=== PATIENT | female | born 1950 | race Caucasian/White ===

== ENCOUNTER 2018-01-25 16:52 | Inpatient (IN) | payer MEDICARE, OTHER ==
[~2018-01-25] VITALS: Ht 160 cm; Wt 45.4 kg
[2018-01-25] VITALS (8 sets, daily range): BP systolic 69–185; BP diastolic 44–117
[2018-01-25] MEDS ORDERED: PROPOFOL DRIP (ICU) 100 ML IV SCH ×3 (17:15→20:00)
[2018-01-25] MEDS ORDERED: CATHETER FLUSH 10 ML SYR IV PRN (18:45)
[2018-01-25] MEDS ORDERED: NS (IVPB) 50 ML ONE (18:56)
[2018-01-25] MEDS: NS IV 1000 ML 1,000 ML IV SCH ×2 (19:04→19:30)
[2018-01-25] MEDS: PANTOPRAZOLE 40 MG (PROTONIX) VIAL IV SCH (19:07)
[2018-01-25] MEDS ORDERED: NS (IVPB) 0 ML ONE (19:09)
[2018-01-25] MEDS ORDERED: NOREPINEPHRINE 4 MG/4 ML (LEVOPHED) AMP IV ONE (19:10)
[2018-01-25] MEDS ORDERED: ATROPINE INJECTION 1 MG/10 ML SYR (ABBOTT) ONE (19:10)
[2018-01-25] MEDS ORDERED: SODIUM BICARB 8.4% 50 MEQ/50 ML (ABBOTT) SYR ONE (19:11)
[2018-01-25] MEDS ORDERED: DOPamine DRIP 250 ML IV ONE (19:21)
[2018-01-25 19:28] LABS: ABG BASE EXCESS -1.7 MMOL/L (-2.5-2.5); ABG OXYGEN SATURATION 99 % (94-100); ABG PCO2 36 MMHG (35-45); ABG PH 7.41 (7.37-7.43); ABG PO2 132 MMHG (79-93); ABG TCO2 23.7 MMOL/L (21.0-31.0); ALLENS TEST YES-POS; INSPIRED O2 50%; PATIENT TEMP 96.6; VENTILATOR YES
--- OUTSIDE RECORDS SUMMARY | 2018-01-25 19:28 | XMS REPORT ---
Author Author ANGELITO CRISTOPHER Organization [facility] Address [address] [place] [address] Care Team Providers Care Front End Java Developer Name Role Phone HERBERTJACKELYN NESBITTA Unavailable PROBLEMS Type Condition ICD9-CM Code CCP70-NU Code Onset Dates Condition Status SNOMED Code Problem Dementia in other diseases classified elsewhere without behavioral disturbance F02.80 Active 403996366 Problem Alzheimer's disease, unspecified G30.9 Active 342417723 Problem Bipolar 1 disorder, depressed, partial remission F31.75 Active 28872752 Problem Severe episode of recurrent major depressive disorder, without psychotic features F33.2 Active 48656478 ALLERGIES No Information ENCOUNTERS Encounter Location Date Diagnosis [place] [id number] [place] [address] 07524- 5068 Jan, [facility] [id number] [place] [address] 80259- 0798 Dec, [place] [id number] [place] [address] 83679- 5284 Dec, [place] [id number] [place] [address] 22623- 1147 Nov, Alzheimer's disease, unspecified G30.9 [facility] [id number] [place] [address] 62515- 5486 Nov, Alzheimer's disease, unspecified G30.9 ; Bipolar 1 disorder , depressed, partial remission F31.75 and Dementia in other diseases classified elsewhere without behavioral disturbance F02.80 [facility] [address] [place] [address] 65960- 5254 Sep, Alzheimer's disease, unspecified G30.9 ; Bipolar 1 disorder , depressed, partial remission F31.75 and Dementia in other diseases classified elsewhere without behavioral disturbance F02.80 [place] [address], [place] [address] August, Alzheimer's disease, unspecified G30.9 ; Bipolar 1 disorder , depressed, partial remission F31.75 and Dementia in other diseases classified elsewhere without behavioral disturbance F02.80 [place] [address], [place] [address] Jul, [place] [id number] [place] [address] 23316- 2448 Jun, [place] [id number] [place] [address] 19543- 6103 Jun, Alzheimer's disease, unspecified G30.9 ; Bipolar 1 disorder , depressed, partial remission F31.75 and Dementia in other diseases classified elsewhere without behavioral disturbance F02.80 [place] [id number] [place] [address] 44505- 1597 Jun, Bipolar 1 disorder, depressed, partial remission F31.75 ; Alzheimer's disease, unspecified G30.9 and Dementia in other diseases classified elsewhere without behavioral disturbance F02.80 [place] [address] [address] May, Bipolar 1 disorder, depressed, partial remission F31.75 ; Alzheimer's disease, unspecified G30.9 and Dementia in other diseases classified elsewhere without behavioral disturbance F02.80 [place] [address] [place] [address] 78630- 7312 Mar, Dementia in other diseases classified elsewhere without behavioral disturbance F02.80 [place] [address] [place] [address] 20161- 5922 Mar, Dementia in other diseases classified elsewhere without behavioral disturbance F02.80 ; Bipolar 1 disorder, depressed, partial remission F31.75 and Alzheimer's disease, unspecified G30.9 [place] [address], [place] [address] Mar, Dementia in other diseases classified elsewhere without behavioral disturbance F02.80 ; Alzheimer's disease, unspecified G30.9 and Bipolar 1 disorder, depressed, partial remission F31.75 [facility] [address] [facility] [id number] [address] August, [facility] [address] [facility] [id number] [address] Jun, Severe episode of recurrent major depressive disorder, without psychotic features F33.2 IMMUNIZATIONS No Known Immunizations SOCIAL HISTORY Never Assessed REASON FOR VISIT Refill request PLAN OF CARE VITAL SIGNS MEDICATIONS Medication Instructions Dosage Frequency Start Date End Date Duration Status Remeron 30 MG Orally Once a day 1 tablet at bedtime 24h 90 days Active RESULTS No Results PROCEDURES No Known procedures INSTRUCTIONS MEDICATIONS ADMINISTERED No Known Medications MEDICAL (GENERAL) HISTORY Type Description Date Medical History ADD Medical History Anxiety State, Unspecified Medical History Bipolar I Disorder Medical History Cognitive Disorder Medical History Dementia in Alzheimers Disease with depression Medical History IBS Medical History Pain Disorder Medical History Stress Syndrome Medical History Tobacco User Surgical History Gallbladder Removal Surgical History Hysterectomy Surgical History Unspecified Knee Hospitalization History Surgery
--- OUTSIDE RECORDS SUMMARY | 2018-01-25 19:28 | XMS REPORT ---
Author Author CRISTOPHER EATON Organization [facility] Address [address] [place] [address] Care Team Providers Care Syrup Mixer Name Role Phone ANGELITO CRISTOPHER Unavailable PROBLEMS Type Condition ICD9-CM Code KHY71-YO Code Onset Dates Condition Status SNOMED Code Problem Dementia in other diseases classified elsewhere without behavioral disturbance F02.80 Active 401527073 Problem Alzheimer's disease, unspecified G30.9 Active 545344503 Problem Bipolar 1 disorder, depressed, partial remission F31.75 Active 54883792 Problem Severe episode of recurrent major depressive disorder, without psychotic features F33.2 Active 74749306 ALLERGIES Substance Reaction Event Type Date Status Latex Unknown Drug Allergy Nov, Active SulfADIAZINE Unknown Drug Allergy Nov, Active Macrodantin Unknown Drug Allergy Nov, Active Keflex Unknown Drug Allergy Nov, Active ENCOUNTERS Encounter Location Date Diagnosis [facility] [id number] [place] [address] 08555- 9097 Jan, [facility] [address] [place] [address] 83789- 3301 Dec, [facility] [id number] [place] [address] 28848- 5014 Nov, Alzheimer's disease, unspecified G30.9 [facility] [id number] [place] [address] 01178- 0703 Nov, Alzheimer's disease, unspecified G30.9 ; Bipolar 1 disorder , depressed, partial remission F31.75 and Dementia in other diseases classified elsewhere without behavioral disturbance F02.80 [facility] [address] [place] [address] 71452- 5348 Sep, Alzheimer's disease, unspecified G30.9 ; Bipolar 1 disorder , depressed, partial remission F31.75 and Dementia in other diseases classified elsewhere without behavioral disturbance F02.80 [place] [address], [place] [address] August, Alzheimer's disease, unspecified G30.9 ; Bipolar 1 disorder , depressed, partial remission F31.75 and Dementia in other diseases classified elsewhere without behavioral disturbance F02.80 [place] [address], [place] [address] Jul, [place] [id number] [place] [address] 75953- 4407 Jun, [place] [id number] [place] [address] 55446- 1027 Jun, Alzheimer's disease, unspecified G30.9 ; Bipolar 1 disorder , depressed, partial remission F31.75 and Dementia in other diseases classified elsewhere without behavioral disturbance F02.80 [place] [address] [place] [address] 01407- 3139 Jun, Bipolar 1 disorder, depressed, partial remission F31.75 ; Alzheimer's disease, unspecified G30.9 and Dementia in other diseases classified elsewhere without behavioral disturbance F02.80 [place] [address] [place] [address] 37889- 1022 May, Bipolar 1 disorder, depressed, partial remission F31.75 ; Alzheimer's disease, unspecified G30.9 and Dementia in other diseases classified elsewhere without behavioral disturbance F02.80 [place] [address] [address]- 3[address] Mar, Dementia in other diseases classified elsewhere without behavioral disturbance F02.80 [place] [address] [place] [address] 71106- 2010 Mar, Dementia in other diseases classified elsewhere without behavioral disturbance F02.80 ; Bipolar 1 disorder, depressed, partial remission F31.75 and Alzheimer's disease, unspecified G30.9 [place] [id number] [place] [address] 13413- 5816 Mar, Dementia in other diseases classified elsewhere without behavioral disturbance F02.80 ; Alzheimer's disease, unspecified G30.9 and Bipolar 1 disorder, depressed, partial remission F31.75 [facility] [address] [facility] [id number] [address] August, [facility] [address] [facility] [id number] [address] Jun, Severe episode of recurrent major depressive disorder, without psychotic features F33.2 IMMUNIZATIONS No Known Immunizations SOCIAL HISTORY Never Assessed REASON FOR VISIT f/u Libby PLAN OF CARE Activity Details Follow Up 2 Months Reason: VITAL SIGNS Height 63 in 2017-11-30 Weight 101.0 lbs 2017-11-30 Heart Rate 88 bpm 2017-11-30 Respiratory Rate 20 2017-11-30 BMI 17.89 kg/m2 2017-11-30 Blood pressure systolic 88 mmHg 2017-11-30 Blood pressure diastolic 54 mmHg 2017-11-30 MEDICATIONS Medication Instructions Dosage Frequency Start Date End Date Duration Status Vol-Care Rx 1 MG Orally Once a day 1 tablet 24h 14 Mar, 2017 30 days Not-Taking Deplin 7.5 7.5-90.314 MG Orally Once a day 1 capsule 24h Not- Taking Chondroitin Sulfate 400 MG Orally 2 times a day 1 capsule 12h Not- Taking Ziprasidone HCl 40 mg Orally Twice a day 1 capsule with food 12h 20 Mar, 2017 Active Valium 5 MG Orally Once a day as needed 1 tab Active Premarin 0.625 MG Orally Daily for Three Weeks, 1 Week off 1 tablet Active Questran 4 GM Orally Twice a day PRN 1 packet mixed with water or non- carbonated drink Active Trazodone HCl 100 MG Orally Once a day 1 tablet at bedtime as needed 24h Active Crestor 5 MG Orally Once a day 1 tablet 24h Active [employer] 10-325 MG Orally 3 times a day 1 tablet as needed 8h Active Vitamin D3 1000 UNIT Orally Once a day 1 capsule 24h Active 19 - Active Remeron 30 MG Orally Once a day 1 tablet at bedtime 24h Active Synthroid 50 MCG Orally Once a day 1 tablet on an empty stomach in the morning 24h Active Albuterol Sulfate Active RESULTS No Results PROCEDURES Procedure Date Ordered Result Body Site [facility] VISIT ESTABLISHED PATIENT Nov 30, 2017 INSTRUCTIONS MEDICATIONS ADMINISTERED No Known Medications MEDICAL [...]
--- OUTSIDE RECORDS SUMMARY | 2018-01-25 19:29 | XMS REPORT ---
Author Author ANGELITO CRISTOPHER Organization [facility] Address [address] [place] [address] Care Team Prov[address] Care Court Deputy Name Role Phone HERBERTJACKELYN NESBITTA Unavailable PROBLEMS Type Condition ICD9-CM Code JUJ45-UX Code Onset Dates Condition Status SNOMED Code Problem Dementia in other diseases classified elsewhere without behavioral disturbance F02.80 Active 027738869 Problem Alzheimer's disease, unspecified G30.9 Active 080331167 Problem Bipolar 1 disorder, depressed, partial remission F31.75 Active 72279084 Problem Severe episode of recurrent major depressive disorder, without psychotic features F33.2 Active 14945186 ALLERGIES No Information ENCOUNTERS Encounter Location Date Diagnosis [place] [address] [place] [address] 45928- 7475 Sep, Alzheimer's disease, unspecified G30.9 ; Bipolar 1 disorder , depressed, partial remission F31.75 and Dementia in other diseases classified elsewhere without behavioral disturbance F02.80 [place] [address] [place] [id number] [place] [address] 81977- 8615 August, Alzheimer's disease, unspecified G30.9 ; Bipolar 1 disorder , depressed, partial remission F31.75 and Dementia in other diseases classified elsewhere without behavioral disturbance F02.80 [place] [address] [address]- 5502 Jul, [place] [id number] [place] [address] 12380- 0408 Jun, [place] [id number] [place] [address] 55453- 3328 Jun, Alzheimer's disease, unspecified G30.9 ; Bipolar 1 disorder , depressed, partial remission F31.75 and Dementia in other diseases classified elsewhere without behavioral disturbance F02.80 [place] [address] [address]- [address] 12 Jun, 2017 Bipolar 1 disorder, depressed, partial remission F31.75 ; Alzheimer's disease, unspecified G30.9 and Dementia in other diseases classified elsewhere without behavioral disturbance F02.80 [place] [address] [address]- [address] May, Bipolar 1 disorder, depressed, partial remission F31.75 ; Alzheimer's disease, unspecified G30.9 and Dementia in other diseases classified elsewhere without behavioral disturbance F02.80 [place] [id number] [place] [address] 626799- 0864 Mar, Dementia in other diseases classified elsewhere without behavioral disturbance F02.80 [place] [id number] [place] [address] 93736- 1483 14 Mar, 2017 Dementia in other diseases classified elsewhere without behavioral disturbance F02.80 ; Bipolar 1 disorder, depressed, partial remission F31.75 and Alzheimer's disease, unspecified G30.9 [place] [address] [place] [address] 70069- 9382 14 Mar, 2017 Dementia in other diseases classified elsewhere without behavioral disturbance F02.80 ; Alzheimer's disease, unspecified G30.9 and Bipolar 1 disorder, depressed, partial remission F31.75 [place] [address] [address]- [address] August, [place] [address] [id number] [place] [address] 73689- 2651 Jun, Severe episode of recurrent major depressive disorder, without psychotic features F33.2 IMMUNIZATIONS No Known Immunizations SOCIAL HISTORY Never Assessed REASON FOR VISIT anxiety PLAN OF CARE VITAL SIGNS MEDICATIONS No Known Medications RESULTS No Results PROCEDURES No Known procedures [...]
--- OUTSIDE RECORDS SUMMARY | 2018-01-25 19:29 | XMS REPORT ---
Author Author CRISTOPHER EATON Organization [facility] Address [address] [place] [address] Care Team Providers Care Assistant Commissioner Name Role Phone HERBERTLAZ CRISTOPHER Unavailable PROBLEMS Type Condition ICD9-CM Code NMY04-OT Code Onset Dates Condition Status SNOMED Code Problem Dementia in other diseases classified elsewhere without behavioral disturbance F02.80 Active 464641240 Problem Alzheimer's disease, unspecified G30.9 Active 528584436 Problem Bipolar 1 disorder, depressed, partial remission F31.75 Active 51645484 Problem Severe episode of recurrent major depressive disorder, without psychotic features F33.2 Active 10436698 ALLERGIES No Information ENCOUNTERS Encounter Location Date Diagnosis [facility] [id number] [place] [address] 47364- 5773 Jan, [facility] [id number] [place] [address] 02675- 8570 Nov, Alzheimer's disease, unspecified G30.9 ; Bipolar 1 disorder , depressed, partial remission F31.75 and Dementia in other diseases classified elsewhere without behavioral disturbance F02.80 [facility] [address] [place] [address] 59755- 6519 Sep, Alzheimer's disease, unspecified G30.9 ; Bipolar 1 disorder , depressed, partial remission F31.75 and Dementia in other diseases classified elsewhere without behavioral disturbance F02.80 [facility] [id number] [place] [address] 02203- 3027 August, Alzheimer's disease, unspecified G30.9 ; Bipolar 1 disorder , depressed, partial remission F31.75 and Dementia in other diseases classified elsewhere without behavioral disturbance F02.80 [facility] [id number] [place] [address] 84159- 7836 Jul, [place] [address], [place] [address]- 6018 Jun, [place] [id number] [place] [address] 63348- 0276 Jun, Alzheimer's disease, unspecified G30.9 ; Bipolar 1 disorder , depressed, partial remission F31.75 and Dementia in other diseases classified elsewhere without behavioral disturbance F02.80 [place] [id number] [place] [address] 53620- 3273 Jun, Bipolar 1 disorder, depressed, partial remission F31.75 ; Alzheimer's disease, unspecified G30.9 and Dementia in other diseases classified elsewhere without behavioral disturbance F02.80 [place] [id number] [place] [address] 36540- 6842 May, Bipolar 1 disorder, depressed, partial remission F31.75 ; Alzheimer's disease, unspecified G30.9 and Dementia in other diseases classified elsewhere without behavioral disturbance F02.80 [place] [id number] [place] [address] 60149- 8521 Mar, Dementia in other diseases classified elsewhere without behavioral disturbance F02.80 [place] [address] [place] [address] 96485- 3943 14 Mar, 2017 Dementia in other diseases classified elsewhere without behavioral disturbance F02.80 ; Bipolar 1 disorder, depressed, partial remission F31.75 and Alzheimer's disease, unspecified G30.9 [place] [address] [place] [address] 72522- 4956 14 Mar, 2017 Dementia in other diseases classified elsewhere without behavioral disturbance F02.80 ; Alzheimer's disease, unspecified G30.9 and Bipolar 1 disorder, depressed, partial remission F31.75 [place] [address], [place] [address]- 1236 August, [place] [address] [place] [address] 70673- 3949 Jun, Severe episode of recurrent major depressive disorder, without psychotic features F33.2 IMMUNIZATIONS No Known Immunizations SOCIAL HISTORY Never Assessed REASON FOR VISIT f/uOscar Shepherd RN PLAN OF CARE Activity Details Follow Up 4 Weeks, prn Reason: VITAL SIGNS Height 63 in 2017-08-30 Weight 99 lbs 2017-08-30 BMI 17.54 kg/m2 2017-08-30 Blood pressure systolic 96 mmHg 2017-08-30 Blood pressure diastolic 62 mmHg 2017-08-30 MEDICATIONS Medication Instructions Dosage Frequency Start Date End Date Duration Status 19 - Active Questran 4 GM Orally Twice a day PRN 1 packet mixed with water or non- carbonated drink Active Premarin 0.625 MG Orally Daily for Three Weeks, 1 Week off 1 tablet Active Synthroid 50 MCG Orally Once a day 1 tablet on an empty stomach in the morning 24h Active Valium 5 MG Orally Once a day as needed 1 tab 30 days Active Chondroitin Sulfate 400 MG Orally 2 times a day 1 capsule 12h Unknown Vol-Care Rx 1 MG Orally Once a day 1 tablet 24h 14 Mar, 2017 30 days Unknown [place] 10-325 MG Orally 3 times a day 1 tablet as needed 8h Active Trazodone HCl 100 MG Orally Once a day 1 tablet at bedtime as needed 24h 30 days Active Albuterol Sulfate Active Vitamin D3 1000 UNIT Orally Once a day 1 capsule 24h Not-Taking Crestor 5 MG Orally Once a day 1 tablet 24h Active Deplin 7.5 7.5-90.314 MG Orally Once a day 1 capsule 24h Unknown Ziprasidone HCl 40 mg Orally Twice a day 1 capsule with food 12h 20 Mar, 2017 30 days Active Remeron 30 MG Orally Once a day 1 tablet at bedtime 24h 30 days Active RESULTS No Results PROCEDURES Procedure Date Ordered Result Body Site [facility] VISIT ESTABLISHED PATIENT August 30, 2017 INSTRUCTIONS MEDICATIONS ADMINISTERED No Known [...]
--- OUTSIDE RECORDS SUMMARY | 2018-01-25 19:29 | XMS REPORT ---
Author Author CRISTOPHER EATON Organization [facility] Address [address] [place] [address] Care Team Providers Care Credit Risk Officer Name Role Phone HERBERTLAZ CRISTOPHER Unavailable PROBLEMS Type Condition ICD9-CM Code RAW43-BY Code Onset Dates Condition Status SNOMED Code Problem Dementia in other diseases classified elsewhere without behavioral disturbance F02.80 Active 211242047 Problem Alzheimer's disease, unspecified G30.9 Active 762517298 Problem Bipolar 1 disorder, depressed, partial remission F31.75 Active 51704754 Problem Severe episode of recurrent major depressive disorder, without psychotic features F33.2 Active 19907854 ALLERGIES No Information ENCOUNTERS Encounter Location Date Diagnosis [facility] [id number] [place] [address] 79388- 6597 Jan, [facility] [id number] [place] [address] 65373- 2973 Nov, Alzheimer's disease, unspecified G30.9 ; Bipolar 1 disorder , depressed, partial remission F31.75 and Dementia in other diseases classified elsewhere without behavioral disturbance F02.80 [facility] [id number] [place] [address] 22536- 6565 Sep, Alzheimer's disease, unspecified G30.9 ; Bipolar 1 disorder , depressed, partial remission F31.75 and Dementia in other diseases classified elsewhere without behavioral disturbance F02.80 [facility] [id number] [place] [address] 45881- 1361 August, Alzheimer's disease, unspecified G30.9 ; Bipolar 1 disorder , depressed, partial remission F31.75 and Dementia in other diseases classified elsewhere without behavioral disturbance F02.80 [facility] [id number] [place] [address] 69898- 4296 Jul, [place] [address] [address] Jun, [place] [id number] [place] [address] 25907- 2030 Jun, Alzheimer's disease, unspecified G30.9 ; Bipolar 1 disorder , depressed, partial remission F31.75 and Dementia in other diseases classified elsewhere without behavioral disturbance F02.80 [place] [id number] [place] [address] 24201- 8515 Jun, Bipolar 1 disorder, depressed, partial remission F31.75 ; Alzheimer's disease, unspecified G30.9 and Dementia in other diseases classified elsewhere without behavioral disturbance F02.80 [place] [id number] [place] [address] 69881- 5626 May, Bipolar 1 disorder, depressed, partial remission F31.75 ; Alzheimer's disease, unspecified G30.9 and Dementia in other diseases classified elsewhere without behavioral disturbance F02.80 [place] [id number] [place] [address] 39315- 4910 Mar, Dementia in other diseases classified elsewhere without behavioral disturbance F02.80 [place] [id number] [place] [address] 75088- 3759 14 Mar, 2017 Dementia in other diseases classified elsewhere without behavioral disturbance F02.80 ; Bipolar 1 disorder, depressed, partial remission F31.75 and Alzheimer's disease, unspecified G30.9 [place] [address] [place] [address] 85384- 4099 14 Mar, 2017 Dementia in other diseases classified elsewhere without behavioral disturbance F02.80 ; Alzheimer's disease, unspecified G30.9 and Bipolar 1 disorder, depressed, partial remission F31.75 [place] [address] [address] August, [place] [id number] [place] [address] 55005- 0231 Jun, Severe episode of recurrent major depressive disorder, without psychotic features F33.2 IMMUNIZATIONS No Known Immunizations SOCIAL HISTORY Never Assessed REASON FOR VISIT BH f/u WB-MA PLAN OF CARE Activity Details Follow Up 2 Months, prn Reason: VITAL SIGNS Height 63 in 2017-10-02 Weight 94 lbs 2017-10-02 BMI 16.65 kg/m2 2017-10-02 Blood pressure systolic 92 mmHg 2017-10-02 Blood pressure diastolic 70 mmHg 2017-10-02 MEDICATIONS Medication Instructions Dosage Frequency Start Date End Date Duration Status Chondroitin Sulfate 400 MG Orally 2 times a day 1 capsule 12h Unknown Premarin 0.625 MG Orally Daily for Three Weeks, 1 Week off 1 tablet Active Ziprasidone HCl 40 mg Orally Twice a day 1 capsule with food 12h 20 Mar, 2017 Active Remeron 30 MG Orally Once a day 1 tablet at bedtime 24h Active Deplin 7.5 7.5-90.314 MG Orally Once a day 1 capsule 24h Unknown Questran 4 GM Orally Twice a day PRN 1 packet mixed with water or non- carbonated drink Active Synthroid 50 MCG Orally Once a day 1 tablet on an empty stomach in the morning 24h Active 19 - Active Crestor 5 MG Orally Once a day 1 tablet 24h Active [place] 10-325 MG Orally 3 times a day 1 tablet as needed 8h Active Valium 5 MG Orally Once a day as needed 1 tab Active Vol-Care Rx 1 MG Orally Once a day 1 tablet 24h 14 Mar, 2017 30 days Unknown Vitamin D3 1000 UNIT Orally Once a day 1 capsule 24h Active Albuterol Sulfate Active Trazodone HCl 100 MG Orally Once a day 1 tablet at bedtime as needed 24h Active RESULTS No Results PROCEDURES Procedure Date Ordered Result Body Site [facility] VISIT ESTABLISHED PATIENT October 02, 2017 INSTRUCTIONS MEDICATIONS ADMINISTERED No Known Medications [...]
--- OUTSIDE RECORDS SUMMARY | 2018-01-25 19:29 | XMS REPORT ---
Author Author CRISTOPHER EATON Organization [facility] Address [address] [place] [address] Care Team Providers Care Carbon Cutter Name Role Phone HERBERTLAZ CRISTOPHER Unavailable PROBLEMS Type Condition ICD9-CM Code ESZ10-ZI Code Onset Dates Condition Status SNOMED Code Problem Dementia in other diseases classified elsewhere without behavioral disturbance F02.80 Active 144004856 Problem Alzheimer's disease, unspecified G30.9 Active 471759347 Problem Bipolar 1 disorder, depressed, partial remission F31.75 Active 40977371 Problem Severe episode of recurrent major depressive disorder, without psychotic features F33.2 Active 76406610 ALLERGIES Substance Reaction Event Type Date Status Latex Unknown Drug Allergy Mar, Active SulfADIAZINE Unknown Drug Allergy Mar, Active Macrodantin Unknown Drug Allergy Mar, Active Keflex Unknown Drug Allergy Mar, Active ENCOUNTERS Encounter Location Date Diagnosis [place] [address] [address] Sep, Alzheimer's disease, unspecified G30.9 ; Bipolar 1 disorder , depressed, partial remission F31.75 and Dementia in other diseases classified elsewhere without behavioral disturbance F02.80 [place] [id number] [place] [address] 96693- 6366 August, Alzheimer's disease, unspecified G30.9 ; Bipolar 1 disorder , depressed, partial remission F31.75 and Dementia in other diseases classified elsewhere without behavioral disturbance F02.80 [facility] [id number] [place] [address] 42873- 7041 Jul, [place] [id number] [place] [address] 94425- 6364 Jun, [facility] [address] [address]65[address] Jun, Alzheimer's disease, unspecified G30.9 ; Bipolar 1 disorder , depressed, partial remission F31.75 and Dementia in other diseases classified elsewhere without behavioral disturbance F02.80 [place] [address] [place] [address] 099878- 0856 12 Jun, 2017 Bipolar 1 disorder, depressed, partial remission F31.75 ; Alzheimer's disease, unspecified G30.9 and Dementia in other diseases classified elsewhere without behavioral disturbance F02.80 [place] [id number] [place] [address] 49444- 4194 16 May, 2017 Bipolar 1 disorder, depressed, partial remission F31.75 ; Alzheimer's disease, unspecified G30.9 and Dementia in other diseases classified elsewhere without behavioral disturbance F02.80 [place] [id number] [place] [address] 67738- 2675 Mar, Dementia in other diseases classified elsewhere without behavioral disturbance F02.80 [place] [id number] [place] [address] 31651- 2839 14 Mar, 2017 Dementia in other diseases classified elsewhere without behavioral disturbance F02.80 ; Bipolar 1 disorder, depressed, partial remission F31.75 and Alzheimer's disease, unspecified G30.9 [place] [id number] [place] [address] 35143- 4160 14 Mar, 2017 Dementia in other diseases classified elsewhere without behavioral disturbance F02.80 ; Alzheimer's disease, unspecified G30.9 and Bipolar 1 disorder, depressed, partial remission F31.75 [place] [address] [place] [address] 79370- 0232 August, [place] [id number] [place], [place] [address] Jun, Severe episode of recurrent major depressive disorder, without psychotic features F33.2 IMMUNIZATIONS No Known Immunizations SOCIAL HISTORY Never Assessed REASON FOR VISIT f/u----DBennettRN PLAN OF CARE Activity Details Follow Up 4 Weeks Reason: VITAL SIGNS Height 63 in 2017-04-13 Weight 95 lbs 2017-04-13 Heart Rate 100 bpm 2017-04-13 Respiratory Rate 20 2017-04-13 BMI 16.83 kg/m2 2017-04-13 Blood pressure systolic 112 mmHg 2017-04-13 Blood pressure diastolic 80 mmHg 2017-04-13 MEDICATIONS Medication Instructions Dosage Frequency Start Date End Date Duration Status Crestor 5 MG Orally Once a day 1 tablet 24h Active Deplin 7.5 7.5-90.314 MG Orally Once a day 1 capsule 24h Not- Taking Synthroid 50 MCG Orally Once a day 1 tablet on an empty stomach in the morning 24h Active 19 - Active Vitamin D3 1000 UNIT Orally Once a day 1 capsule 24h Active Albuterol Sulfate Active Trazodone HCl 50 MG Orally Once a day 1 tablet at bedtime as needed 24h Active Premarin 0.625 MG Orally Daily for Three Weeks, 1 Week off 1 tablet Active Questran 4 GM Orally Twice a day PRN 1 packet mixed with water or non- carbonated drink Active Potassium Gluconate 595 MG Not-Taking Modafinil 200 MG Orally Once a day 1 tablet in the morning 24h Active Ziprasidone HCl 60 mg Orally Twice a day 1 capsule with food 12h Active [place] 10-325 MG Orally 3 times a day 1 tablet as needed 8h Active Remeron 30 MG Orally Once a day 1 tablet at bedtime 24h Active Chondroitin Sulfate 400 MG Orally 2 times a day 1 capsule 12h Active Vol-Care Rx 1 MG Orally Once a day 1 tablet 24h Mar, 90 days Active Valium 5 MG Orally Twice a day 1 tablet as needed 12h Active RESULTS No Results PROCEDURES Procedure Date Ordered Result Body Site [facility] VISIT ESTABLISHED PATIENT Apr 13, 2017 INSTRUCTIONS MEDICATIONS ADMINISTERED No Known Medications [...]
--- OUTSIDE RECORDS SUMMARY | 2018-01-25 19:29 | XMS REPORT ---
Author Author CRISTOPHER EATON Organization [facility] Address [address] [place] [address] Care Team Providers Care Batcher Operator Name Role Phone HERBERTLAZ CRISTOPHER Unavailable PROBLEMS Type Condition ICD9-CM Code LLK24-UI Code Onset Dates Condition Status SNOMED Code Problem Dementia in other diseases classified elsewhere without behavioral disturbance F02.80 Active 966485828 Problem Alzheimer's disease, unspecified G30.9 Active 650268212 Problem Bipolar 1 disorder, depressed, partial remission F31.75 Active 36040861 Problem Severe episode of recurrent major depressive disorder, without psychotic features F33.2 Active 99680023 ALLERGIES No Information ENCOUNTERS Encounter Location Date Diagnosis [place] [id number] [place] [address] 95966- 8672 Sep, Alzheimer's disease, unspecified G30.9 ; Bipolar 1 disorder , depressed, partial remission F31.75 and Dementia in other diseases classified elsewhere without behavioral disturbance F02.80 [place] [address] [id number] [place] [address] 23106- 6708 August, Alzheimer's disease, unspecified G30.9 ; Bipolar 1 disorder , depressed, partial remission F31.75 and Dementia in other diseases classified elsewhere without behavioral disturbance F02.80 [place] [address] [address] Jul, [place] [id number] [place] [address] 55117- 1532 Jun, [place] [id number] [place] [address] 23863- 3915 Jun, Alzheimer's disease, unspecified G30.9 ; Bipolar 1 disorder , depressed, partial remission F31.75 and Dementia in other diseases classified elsewhere without behavioral disturbance F02.80 [place] [address] [address] 12 Jun, 2017 Bipolar 1 disorder, depressed, partial remission F31.75 ; Alzheimer's disease, unspecified G30.9 and Dementia in other diseases classified elsewhere without behavioral disturbance F02.80 [place] [address] [address] 16 May, 2017 Bipolar 1 disorder, depressed, partial remission F31.75 ; Alzheimer's disease, unspecified G30.9 and Dementia in other diseases classified elsewhere without behavioral disturbance F02.80 [place] [id number] [place] [address] 867874- 2349 19 Mar, 2017 Dementia in other diseases classified elsewhere without behavioral disturbance F02.80 [place] [id number] [place] [address] 16750- 7365 14 Mar, 2017 Dementia in other diseases classified elsewhere without behavioral disturbance F02.80 ; Bipolar 1 disorder, depressed, partial remission F31.75 and Alzheimer's disease, unspecified G30.9 [place] [address] [place] [address] 27382- 5298 14 Mar, 2017 Dementia in other diseases classified elsewhere without behavioral disturbance F02.80 ; Alzheimer's disease, unspecified G30.9 and Bipolar 1 disorder, depressed, partial remission F31.75 [place] [address] [address]- [address] August, [place] [id number] [place] [address] 56917- 9863 Jun, Severe episode of recurrent major depressive disorder, without psychotic features F33.2 IMMUNIZATIONS No Known Immunizations SOCIAL HISTORY Never Assessed REASON FOR VISIT f/Chuck BORGES PLAN OF CARE Activity Details Follow Up 2 Months Reason: VITAL SIGNS Height 63 in 2017-05-16 Weight 91.8 lbs 2017-05-16 Heart Rate 96 bpm 2017-05-16 Respiratory Rate 18 2017-05-16 BMI 16.26 kg/m2 2017-05-16 Blood pressure systolic 98 mmHg 2017-05-16 Blood pressure diastolic 58 mmHg 2017-05-16 MEDICATIONS Medication Instructions Dosage Frequency Start Date End Date Duration Status Premarin 0.625 MG Orally Daily for Three Weeks, 1 Week off 1 tablet Active Vitamin D3 1000 UNIT Orally Once a day 1 capsule 24h Active Ziprasidone HCl 80 MG Orally Twice a day 1 capsule with food 12h 20 Mar, 2017 Active 19 - Not-Taking Valium 5 MG Orally at night 1.5 tablets Active Potassium Gluconate 595 MG Not-Taking Deplin 7.5 7.5-90.314 MG Orally Once a day 1 capsule 24h Not- Taking Vol-Care Rx 1 MG Orally Once a day 1 tablet 24h 14 Mar, 2017 30 days Active Remeron 30 MG Orally Once a day 1 tablet at bedtime 24h Active Albuterol Sulfate Not-Taking Questran 4 GM Orally Twice a day PRN 1 packet mixed with water or non- carbonated drink Not-Taking Synthroid 50 MCG Orally Once a day 1 tablet on an empty stomach in the morning 24h Active Crestor 5 MG Orally Once a day 1 tablet 24h Active Chondroitin Sulfate 400 MG Orally 2 times a day 1 capsule 12h Not- Taking [place] 10-325 MG Orally 3 times a day 1 tablet as needed 8h Active Trazodone HCl 100 MG Orally Once a day 1 tablet at bedtime as needed 24h 30 days Active RESULTS No Results PROCEDURES Procedure Date Ordered Result Body Site [facility] VISIT ESTABLISHED PATIENT May 16, 2017 INSTRUCTIONS MEDICATIONS ADMINISTERED No Known Medications [...]
--- OUTSIDE RECORDS SUMMARY | 2018-01-25 19:29 | XMS REPORT ---
Author Author ANGELITO CRISTOPHER Organization [facility] Address [address] [place] [address] Care Team Providers Care Controls Engineer Name Role Phone HERBERTLAZ CRISTOPHER Unavailable PROBLEMS Type Condition ICD9-CM Code MUY74-EG Code Onset Dates Condition Status SNOMED Code Problem Dementia in other diseases classified elsewhere without behavioral disturbance F02.80 Active 575562381 Problem Alzheimer's disease, unspecified G30.9 Active 972948043 Problem Bipolar 1 disorder, depressed, partial remission F31.75 Active 53753709 Problem Severe episode of recurrent major depressive disorder, without psychotic features F33.2 Active 10212161 ALLERGIES No Information ENCOUNTERS Encounter Location Date Diagnosis [place] [address] [place] [address] 83005- 6896 Sep, Alzheimer's disease, unspecified G30.9 ; Bipolar 1 disorder , depressed, partial remission F31.75 and Dementia in other diseases classified elsewhere without behavioral disturbance F02.80 [place] [address] [id number] [place] [address] 80449- 1797 August, Alzheimer's disease, unspecified G30.9 ; Bipolar 1 disorder , depressed, partial remission F31.75 and Dementia in other diseases classified elsewhere without behavioral disturbance F02.80 [place] [address] [address] Jul, [place] [id number] [place] [address] 43522- 1253 Jun, [place] [id number] [place] [address] 47029- 6980 Jun, Alzheimer's disease, unspecified G30.9 ; Bipolar 1 disorder , depressed, partial remission F31.75 and Dementia in other diseases classified elsewhere without behavioral disturbance F02.80 [place] [address] [address]- 7[address] 12 Jun, 2017 Bipolar 1 disorder, depressed, partial remission F31.75 ; Alzheimer's disease, unspecified G30.9 and Dementia in other diseases classified elsewhere without behavioral disturbance F02.80 [place] [address] [address]- [address] 16 May, 2017 Bipolar 1 disorder, depressed, partial remission F31.75 ; Alzheimer's disease, unspecified G30.9 and Dementia in other diseases classified elsewhere without behavioral disturbance F02.80 [place] [id number] [place] [address] 984996- 4250 Mar, Dementia in other diseases classified elsewhere without behavioral disturbance F02.80 [place] [id number] [place] [address] 24300- 1684 14 Mar, 2017 Dementia in other diseases classified elsewhere without behavioral disturbance F02.80 ; Bipolar 1 disorder, depressed, partial remission F31.75 and Alzheimer's disease, unspecified G30.9 [place] [address] [place] [address] 61584- 6135 14 Mar, 2017 Dementia in other diseases classified elsewhere without behavioral disturbance F02.80 ; Alzheimer's disease, unspecified G30.9 and Bipolar 1 disorder, depressed, partial remission F31.75 [place] [address] [address]- [address] August, [place] [id number] [place] [address] 69564- 1302 Jun, Severe episode of recurrent major depressive disorder, without psychotic features F33.2 IMMUNIZATIONS No Known Immunizations SOCIAL HISTORY Never Assessed REASON FOR VISIT Other PLAN OF CARE VITAL SIGNS MEDICATIONS Medication Instructions Dosage Frequency Start Date End Date Duration Status Ziprasidone HCl 80 MG Orally Twice a day 1 capsule with food 12h 20 Mar, 2017 90 days Active RESULTS No Results PROCEDURES [...]
--- OUTSIDE RECORDS SUMMARY | 2018-01-25 19:29 | XMS REPORT ---
Author Author ZULEMA TANG [facility] Address [address] [place] [address] Care Team Providers Care Beauty Operator Name Role Phone ZULEMA TANG Unavailable PROBLEMS Type Condition ICD9-CM Code QXY90-UT Code Onset Dates Condition Status SNOMED Code Problem Severe episode of recurrent major depressive disorder, without psychotic features F33.2 Active 03051397 ALLERGIES No Information SOCIAL HISTORY Never Assessed PLAN OF CARE VITAL SIGNS MEDICATIONS Unknown Medications RESULTS No Results PROCEDURES No Known procedures IMMUNIZATIONS No Known Immunizations MEDICAL (GENERAL) HISTORY Type Description Date Medical [...]
--- OUTSIDE RECORDS SUMMARY | 2018-01-25 19:29 | XMS REPORT ---
Author Author ANGELITO CRISTOPHER Organization [facility] Address [address] [place] [address] Care Team Providers Care Software Development Advisor Name Role Phone HERBERTJACKELYN NESBITTA Unavailable PROBLEMS Type Condition ICD9-CM Code VZS10-VF Code Onset Dates Condition Status SNOMED Code Problem Dementia in other diseases classified elsewhere without behavioral disturbance F02.80 Active 376496999 Problem Alzheimer's disease, unspecified G30.9 Active 236700278 Problem Bipolar 1 disorder, depressed, partial remission F31.75 Active 76328800 Problem Severe episode of recurrent major depressive disorder, without psychotic features F33.2 Active 54954941 ALLERGIES No Information ENCOUNTERS Encounter Location Date Diagnosis [place] [address] [place] [address] Sep, Alzheimer's disease, unspecified G30.9 ; Bipolar 1 disorder , depressed, partial remission F31.75 and Dementia in other diseases classified elsewhere without behavioral disturbance F02.80 [place] [address] [place] [id number] [place] [address] August, Alzheimer's disease, unspecified G30.9 ; Bipolar 1 disorder , depressed, partial remission F31.75 and Dementia in other diseases classified elsewhere without behavioral disturbance F02.80 [place] [address], [place] [address] Jul, [place] [address] [place] [id number] [place] [address] Jun, [place] [address] [place] [id number] [place] [address] Jun, Alzheimer's disease, unspecified G30.9 ; Bipolar 1 disorder , depressed, partial remission F31.75 and Dementia in other diseases classified elsewhere without behavioral disturbance F02.80 [place] [address], [place] [address] 12 Jun, 2017 Bipolar 1 disorder, depressed, partial remission F31.75 ; Alzheimer's disease, unspecified G30.9 and Dementia in other diseases classified elsewhere without behavioral disturbance F02.80 [place] [address] [place] [id number] [address] May, 2017 Bipolar 1 disorder, depressed, partial remission F31.75 ; Alzheimer's disease, unspecified G30.9 and Dementia in other diseases classified elsewhere without behavioral disturbance F02.80 [place] [address] [place] [id number] [place] [address] Mar, Dementia in other diseases classified elsewhere without behavioral disturbance F02.80 [place] [address] [place] [id number] [place] [address] 14 Mar, 2017 Dementia in other diseases classified elsewhere without behavioral disturbance F02.80 ; Bipolar 1 disorder, depressed, partial remission F31.75 and Alzheimer's disease, unspecified G30.9 [place] [address] [place] [address] 14 Mar, 2017 Dementia in other diseases classified elsewhere without behavioral disturbance F02.80 ; Alzheimer's disease, unspecified G30.9 and Bipolar 1 disorder, depressed, partial remission F31.75 [place] [address], [place] [address] August, [place] [address] [place] [id number] [place] [address] Jun, Severe episode of recurrent major depressive disorder, without psychotic features F33.2 IMMUNIZATIONS No Known Immunizations SOCIAL HISTORY Never Assessed REASON FOR VISIT f/u, contract PLAN OF CARE Activity Details Follow Up 3 Months Reason: VITAL SIGNS Height 63 in 2017-07-11 Weight 94.7 lbs 2017-07-11 BMI 16.77 kg/m2 2017-07-11 MEDICATIONS Medication Instructions Dosage Frequency Start Date End Date Duration Status Albuterol Sulfate Active Potassium Gluconate 595 MG Active Vol-Care Rx 1 MG Orally Once a day 1 tablet 24h 14 Mar, 2017 30 days Active Vitamin D3 1000 UNIT Orally Once a day 1 capsule 24h Active Ziprasidone HCl 40 MG Orally Twice a day 1 capsule with food 12h 20 Mar, 2017 30 days Active Trazodone HCl 100 MG Orally Once a day 1 tablet at bedtime as needed 24h 30 days Active Premarin 0.625 MG Orally Daily for Three Weeks, 1 Week off 1 tablet Active Remeron 30 MG Orally Once a day 1 tablet at bedtime 24h 30 days Active Chondroitin Sulfate 400 MG Orally 2 times a day 1 capsule 12h Active Deplin 7.5 7.5-90.314 MG Orally Once a day 1 capsule 24h Active [place] 10-325 MG Orally 3 times a day 1 tablet as needed 8h Active 19 - Active Questran 4 GM Orally Twice a day PRN 1 packet mixed with water or non- carbonated drink Active Crestor 5 MG Orally Once a day 1 tablet 24h Active Synthroid 50 MCG Orally Once a day 1 tablet on an empty stomach in the morning 24h Active Valium 5 MG Orally Once a day as needed 1 tab 30 days Active RESULTS No Results PROCEDURES Procedure Date Ordered Result Body Site [facility] VISIT ESTABLISHED PATIENT July 11, 2017 INSTRUCTIONS MEDICATIONS ADMINISTERED No Known Medications [...]
--- OUTSIDE RECORDS SUMMARY | 2018-01-25 19:29 | XMS REPORT ---
Author Author ANGELITO CRISTOPHER Organization [facility] Address [address] [place] [address] Care Team Providers Care Customs And Border Protection Inspector Name Role Phone HERBERTLAZ CRISTOPHER Unavailable PROBLEMS Type Condition ICD9-CM Code MKY95-NM Code Onset Dates Condition Status SNOMED Code Problem Dementia in other diseases classified elsewhere without behavioral disturbance F02.80 Active 014230942 Problem Alzheimer's disease, unspecified G30.9 Active 830933744 Problem Bipolar 1 disorder, depressed, partial remission F31.75 Active 40986077 Problem Severe episode of recurrent major depressive disorder, without psychotic features F33.2 Active 09868432 ALLERGIES No Information ENCOUNTERS Encounter Location Date Diagnosis [place] [address] [place] [address] Nov, [place] [address] [place] [id number] [place] [address] Sep, Alzheimer's disease, unspecified G30.9 ; Bipolar 1 disorder , depressed, partial remission F31.75 and Dementia in other diseases classified elsewhere without behavioral disturbance F02.80 [facility] [id number] [place] [address] August, Alzheimer's disease, unspecified G30.9 ; Bipolar 1 disorder , depressed, partial remission F31.75 and Dementia in other diseases classified elsewhere without behavioral disturbance F02.80 [facility] [address] [place] [address] Jul, [place] [address] [place] [id number] [place] [address] Jun, [place] [address] [place] [id number] [place] [address] Jun, Alzheimer's disease, unspecified G30.9 ; Bipolar 1 disorder , depressed, partial remission F31.75 and Dementia in other diseases classified elsewhere without behavioral disturbance F02.80 [place] [address] [place] [id number] [place], [place] [phone] Jun, 2017 Bipolar 1 disorder, depressed, partial remission F31.75 ; Alzheimer's disease, unspecified G30.9 and Dementia in other diseases classified elsewhere without behavioral disturbance F02.80 [place] [address] [place] [id number] [place], [place] [address] May, Bipolar 1 disorder, depressed, partial remission F31.75 ; Alzheimer's disease, unspecified G30.9 and Dementia in other diseases classified elsewhere without behavioral disturbance F02.80 [place] [address] [place] [id number] [place], [place] [address] Mar, Dementia in other diseases classified elsewhere without behavioral disturbance F02.80 [place] [address] [place] [id number] [place], [place] [address] 14 Mar, 2017 Dementia in other diseases classified elsewhere without behavioral disturbance F02.80 ; Bipolar 1 disorder, depressed, partial remission F31.75 and Alzheimer's disease, unspecified G30.9 [place] [id number] [place], [place] [address] 14 Mar, 2017 Dementia in other diseases classified elsewhere without behavioral disturbance F02.80 ; Alzheimer's disease, unspecified G30.9 and Bipolar 1 disorder, depressed, partial remission F31.75 [place] [address] [place] [id number] [place] [address] August, [place] [id number] [place], [place] [address] Jun, Severe episode of recurrent major depressive disorder, without psychotic features F33.2 IMMUNIZATIONS No Known Immunizations SOCIAL HISTORY Never Assessed REASON FOR VISIT Refill request PLAN OF CARE VITAL SIGNS MEDICATIONS Medication Instructions Dosage Frequency Start Date End Date Duration Status Ziprasidone HCl 40 mg Orally Twice a day 1 capsule with food 12h Mar, 30 days Active RESULTS No Results PROCEDURES No [...]
--- OUTSIDE RECORDS SUMMARY | 2018-01-25 19:29 | XMS REPORT ---
Author Author ZULEMA TANG [facility] Address [address] [place] [address] Care Team Providers Care Door Patcher Name Role Phone ZULEMA TANG Unavailable PROBLEMS Type Condition ICD9-CM Code GPG09-EV Code Onset Dates Condition Status SNOMED Code Problem Severe episode of recurrent major depressive disorder, without psychotic features F33.2 Active 77266084 ALLERGIES No Information SOCIAL HISTORY Never Assessed PLAN OF CARE Activity Details Follow Up prn Reason:Depression,, med check VITAL SIGNS MEDICATIONS Unknown Medications RESULTS No Results PROCEDURES Procedure Date Ordered Result Body Site Psych diagnostic evaluation, new patient Jun 27, 2016 IMMUNIZATIONS No Known Immunizations MEDICAL (GENERAL) HISTORY [...]
[2018-01-25 19:33] LABS: BASOPHILS % (AUTO) 0 % (0-10); EOSINOPHILS % (AUTO) 0 % (0-10); HEMATOCRIT 30 % (35-52); HEMOGLOBIN 10.5 G/DL (11.5-16.0); LYMPHOCYTES # (AUTO) 2.2 X 10^3 (1.0-4.0); LYMPHOCYTES % (AUTO) 31 % (12-44); MEAN CORPUSCULAR HEMOGLOBIN 34 PG (25-34); MEAN CORPUSCULAR HGB CONC 35 G/DL (32-36); MEAN CORPUSCULAR VOLUME 98 FL (80-99); MEAN PLATELET VOLUME 10.1 FL (7.4-10.4); MONOCYTES # (AUTO) 0.2 X 10^3 (0.0-1.0); MONOCYTES % (AUTO) 3 % (0-12); NEUTROPHILS # (AUTO) 4.6 X 10^3 (1.8-7.8); NEUTROPHILS % (AUTO) 66 % (42-75); PLATELET COUNT 161 10^3/uL (130-400); RED BLOOD COUNT 3.08 10^6/uL (4.35-5.85); RED CELL DISTRIBUTION WIDTH 11.5 % (10.0-14.5)
--- NOTE | 2018-01-25 19:48 | Diagnostic Imaging Report ---
INDICATION: Endotracheal tube placement. TIME OF EXAM: 07:35 p.m. Correlation is made with prior chest from 03/27/2007. FINDINGS: Endotracheal tube has tip in good position above the sunita. NG tube passes below the diaphragm. The lungs are clear. No effusion or pneumothorax is seen. IMPRESSION: Satisfactory endotracheal tube and nasogastric tube placement. Dictated by: Dictated on workstation # [id number]
[2018-01-25 19:52] LABS: ALANINE AMINOTRANSFERASE 12 U/L (0-55); ALBUMIN 2.5 GM/DL (3.2-4.5); ALKALINE PHOSPHATASE 38 U/L (40-136); BILIRUBIN,TOTAL 0.2 MG/DL (0.1-1.0); BUN/CREATININE RATIO 22; CALCIUM 6.6 MG/DL (8.5-10.1); CARBON DIOXIDE 13 MMOL/L (21-32); CHLORIDE 124 MMOL/L (98-107); CREATININE SERUM 0.64 MG/DL (0.60-1.30); GFR ESTIMATED > 60; GLUCOSE 84 MG/DL (70-105); POTASSIUM 2.9 MMOL/L (3.6-5.0); SODIUM 144 MMOL/L (135-145); TRIGLYCERIDES 86 MG/DL (<150)
[2018-01-25] MEDS ORDERED: DEXMEDETOMIDINE INJECTION 1,000 MCG in NS (IVPB) 250 ML IV PRN (20:00)
[2018-01-25] MEDS ORDERED: DOPamine DRIP 400 MG/250 ML D5W (PRE-MIX) IV SCH (20:30)
[2018-01-25] MEDS ORDERED: SODIUM BICARB 8.4% 50 MEQ/50 ML (ABBOTT) SYR IV SCH (20:30)
[2018-01-25] MEDS: DEXMEDETOMIDINE INJECTION 200 MCG in NS (IVPB) 50 ML IV SCH (21:01)
[2018-01-25] MEDS: fentaNYL INJECTION 100 MCG/2 ML AMP IVP PRN ×4 (21:04→23:28)
[2018-01-25 21:19] LABS: MAGNESIUM 1.7 MG/DL (1.8-2.4)
[2018-01-25 21:46] LABS: FREE T4 (FREE THYROXINE) 1.14 NG/DL (0.70-1.48)
[2018-01-25] MEDS: POTASSIUM CL 10 MEQ/50 ML IVPB (PRE-MIX) IV SCH (23:15)
[2018-01-26] VITALS (14 sets, daily range): BP systolic 94–135; BP diastolic 56–82
[2018-01-26] MEDS: POTASSIUM CL 10 MEQ/50 ML IVPB (PRE-MIX) IV SCH ×7 (00:05→07:06)
[2018-01-26] MEDS: fentaNYL INJECTION 100 MCG/2 ML AMP IVP PRN ×4 (00:05→02:54)
[2018-01-26] MEDS: DEXMEDETOMIDINE INJECTION 200 MCG in NS (IVPB) 50 ML IV SCH ×2 (01:18→04:28)
[2018-01-26] MEDS: NS IV 1000 ML 1,000 ML IV SCH ×2 (01:49→09:33)
[2018-01-26 03:37] LABS: BASOPHILS % (AUTO) 0 % (0-10); EOSINOPHILS % (AUTO) 0 % (0-10); HEMATOCRIT 40 % (35-52); HEMOGLOBIN 13.6 G/DL (11.5-16.0); LYMPHOCYTES # (AUTO) 1.8 X 10^3 (1.0-4.0); LYMPHOCYTES % (AUTO) 10 % (12-44); MEAN CORPUSCULAR HEMOGLOBIN 33 PG (25-34); MEAN CORPUSCULAR HGB CONC 34 G/DL (32-36); MEAN CORPUSCULAR VOLUME 97 FL (80-99); MEAN PLATELET VOLUME 10.2 FL (7.4-10.4); MONOCYTES # (AUTO) 0.9 X 10^3 (0.0-1.0); MONOCYTES % (AUTO) 5 % (0-12); NEUTROPHILS % (AUTO) 85 % (42-75); PLATELET COUNT 206 10^3/uL (130-400); RED CELL DISTRIBUTION WIDTH 11.7 % (10.0-14.5); WHITE BLOOD COUNT 17.7 10^3/uL (4.3-11.0)
[2018-01-26 03:52] LABS: ABG BASE EXCESS -3.4 MMOL/L (-2.5-2.5); ABG OXYGEN SATURATION 99 % (94-100); ABG PCO2 44 MMHG (35-45); ABG PO2 148 MMHG (79-93); ABG TCO2 23.2 MMOL/L (21.0-31.0)
[2018-01-26 03:53] LABS: ALLENS TEST YES-POS; INSPIRED O2 40%; PATIENT TEMP 98.4; VENTILATOR YES
[2018-01-26 03:54] LABS: ABG PH 7.32 (7.37-7.43)
[2018-01-26 03:57] LABS: ALANINE AMINOTRANSFERASE 32 U/L (0-55); ALBUMIN 3.8 GM/DL (3.2-4.5); ALKALINE PHOSPHATASE 58 U/L (40-136); BILIRUBIN,TOTAL 0.4 MG/DL (0.1-1.0); BUN/CREATININE RATIO 16; CALCIUM 8.3 MG/DL (8.5-10.1); CARBON DIOXIDE 20 MMOL/L (21-32); CHLORIDE 115 MMOL/L (98-107); CREATININE SERUM 0.77 MG/DL (0.60-1.30); GFR ESTIMATED > 60; GLUCOSE 97 MG/DL (70-105); MAGNESIUM 1.9 MG/DL (1.8-2.4); PHOSPHORUS 2.1 MG/DL (2.3-4.7); POTASSIUM 4.1 MMOL/L (3.6-5.0); SODIUM 144 MMOL/L (135-145); TOTAL PROTEIN 6.1 GM/DL (6.4-8.2)
[2018-01-26 04:09] LABS: BAND NEUTROPHILS 1 %; BASOPHILS % (MANUAL) 0 %; EOSINOPHILS % (MANUAL) 0 %; LYMPHOCYTES % (MANUAL) 13 %; MONOCYTES % (MANUAL) 2 %; NEUTROPHILS % (MANUAL) 84 %; TOXIC GRANULATION/VACUOLAZATIO 1+
[2018-01-26] MEDS ORDERED: MAGNESIUM 1 GM/100 ML IVPB 100 ML IV SCH (06:00)
[2018-01-26] MEDS ORDERED: POTASSIUM CL 10MEQ/50ML IVPB 50 ML IV SCH (06:00)
[2018-01-26] MEDS ORDERED: KCL 20 MEQ TAB (K-DUR) PO SCH (06:00)
--- NOTE | 2018-01-26 07:05 | Pulmonary Consultation ---
History of Present Illness History of Present Illness Date of Consultation 01/26/18 06:59 Time Seen by Provider: 07:02 Date of Admission History of Present Illness 67yo with hx of alcohol dependance however has been sober for years until just prior to admission when she started drinking Vodka. PT was intubated for airway protection at [facility] and then transferred here for ICU/vent management. Pt is currently sedated intubated on ventilator. at bedside. Labs and CXR reviewed. CXR looks like COPD probably severe. Pt is not on home oxygen. SHe is a smoker. I am consulted for ICU management. Allergies and Home Medications Allergies Coded Allergies: No Allergy Information Available (Unverified , 01/25/18) Past Iqbxswc-Ywfalj-Fswvak Hx Patient Social History Smoking Status: Current Everyday Smoker Type Used: Cigarettes Recent Foreign Travel: No Contact w/Someone Who Travel: No Review of Systems Time Seen by Provider: 07:02 Sepsis Event Evaluation Height, Weight, BMI Height: 5'3.00" Weight: 100lbs. 0.0oz. 45.129890jp; 17.4 BMI Method: Exam Exam Vital Signs Date Time Temp Pulse Resp B/P (MAP) Pulse Ox O2 Delivery O2 Flow Rate FiO2 01/26/18 06:14 101 17 100 35 01/26/18 06:00 99 18 132/69 (90) 100 Mechanical Ventilator 35.00 01/26/18 05:00 105 17 127/68 (87) 100 Mechanical Ventilator 35.00 01/26/18 04:34 108 18 100 50 01/26/18 04:00 105 17 125/71 (89) 100 Mechanical Ventilator 35.00 01/26/18 04:00 99.8 01/26/18 04:00 95 Mechanical Ventilator 40.00 01/26/18 03:00 108 18 108/68 (81) 100 Mechanical Ventilator 50.00 01/26/18 02:00 101 17 117/63 (81) 100 Mechanical Ventilator 50.00 01/26/18 01:00 104 01/26/18 01:00 65 16 107/56 (73) 96 Mechanical Ventilator 50.00 01/26/18 00:32 108 16 100 50 01/26/18 00:00 105 15 109/62 (78) 100 Mechanical Ventilator 50.00 01/26/18 00:00 95 Mechanical Ventilator 50.00 01/26/18 00:00 97.5 01/25/18 23:27 96.6 01/25/18 23:00 109 17 105/63 (77) 100 Mechanical Ventilator 50.00 01/25/18 22:00 98 16 88/48 (61) 100 Mechanical Ventilator 50.00 01/25/18 21:10 93 19 100 100 01/25/18 21:02 89 01/25/18 21:00 89 18 113/65 (81) 100 Mechanical Ventilator 50.00 01/25/18 20:00 98 15 108/65 (79) 100 Mechanical Ventilator 100.00 01/25/18 20:00 100 Mechanical Ventilator 50.00 01/25/18 20:00 96.8 01/25/18 19:32 63 16 100 100 01/25/18 19:30 96 Mechanical Ventilator 50 01/25/18 19:27 50 01/25/18 19:00 96.6 68 15 119/70 (86) 100 Mechanical Ventilator 50.00 01/25/18 19:00 68 01/25/18 19:00 68 16 69/44 (52) 99 Mechanical Ventilator 50.00 01/25/18 18:51 100 01/25/18 18:50 70 16 98 50 01/25/18 18:35 99 11 185/117 (139) 100 Mechanical Ventilator 01/25/18 18:30 71 15 100 100 I & O 01/26/18 07:00 Intake Total 0 ml Output Total 3900 ml Balance -3900 ml Height & Weight Height: 5'3.00" Weight: 100lbs. 0.0oz. 45.621290za; 17.4 BMI Method: General Appearance: Chronically ill, Mild Distress, Thin HEENT: PERRL/EOMI, Pharynx Normal Neck: Full Range of Motion, Normal Inspection, Non Tender, Supple Respiratory: No Accessory Muscle Use, No Respiratory Distress, Decreased Breath Sounds Cardiovascular: Regular Rate, Rhythm, No Edema, No JVD, No Murmur Gastrointestinal: normal bowel sounds, non tender, soft Extremity: Normal Capillary Refill, Normal Inspection Neurologic/Psychiatric: Alert Skin: Normal Color, Warm/Dry Lymphatic: No Adenopathy Results Lab Laboratory Tests 01/25/18 19:20 01/26/18 03:02 Assessment/Plan Assessment/Plan Acute respiratory failure -Will attempt extubation today after weaning COPDAE -SVNS -oxygen -Solumedrol Leukocytosis -PT may have got a dose of steroids prior to admission -Will check UA Alcohol intoxication -education Hx of dementia MARIA GUADALUPE PINO DO Jan 26, 2018 07:05
[2018-01-26] MEDS ORDERED: RT-ALBUTEROL/IPRATROPIUM 3 ML (DUONEB) VIAL INH PRN (07:15)
[2018-01-26 08:32] LABS: ABG BASE EXCESS -3.2 MMOL/L (-2.5-2.5); ABG OXYGEN SATURATION 97 % (94-100); ABG PCO2 39 MMHG (35-45); ABG PH 7.36 (7.37-7.43); ABG PO2 86 MMHG (79-93); ABG TCO2 22.5 MMOL/L (21.0-31.0)
[2018-01-26 08:35] LABS: ALLENS TEST POSITIVE; INSPIRED O2 1 L 25%; PATIENT TEMP 99.2; VENTILATOR YES
[2018-01-26] MEDS ORDERED: ENOXAPARIN 40 MG/0.4 ML (LOVENOX) SYR SC SCH (09:00)
[2018-01-26] MEDS ORDERED: RT-ALBUTEROL/IPRATROPIUM 3 ML (DUONEB) VIAL INH SCH (09:00)
[2018-01-26] MEDS ORDERED: PANTOPRAZOLE 40 MG (PROTONIX) VIAL IV SCH (09:00)
[2018-01-26] MEDS ORDERED: MIRT30TA6 PO (09:05)
[2018-01-26] MEDS ORDERED: ESTR0.62 PO (09:05)
[2018-01-26] MEDS ORDERED: ZIPR40CA26 PO (09:05)
[2018-01-26] MEDS ORDERED: DIAZ5TAB3 PO (09:05)
[2018-01-26] MEDS ORDERED: HYDR-3820 PO (09:05)
[2018-01-26] MEDS ORDERED: TRAZ-189 PO (09:05)
[2018-01-26] MEDS ORDERED: ROSU5TAB12 PO (09:05)
[2018-01-26] MEDS ORDERED: MIRT30TA8 PO (09:05)
[2018-01-26] MEDS ORDERED: LEVO50TA6 PO (09:05)
[2018-01-26] MEDS ORDERED: CLOB15GE TP (09:10)
[2018-01-26] MEDS ORDERED: CHOL4PAC16 PO (09:10)
--- NOTE | 2018-01-26 09:11 | Diagnostic Imaging Report ---
INDICATION: Mechanical ventilation, respiratory failure. TECHNIQUE: Single view chest 03:04 a.m. CORRELATION STUDY: 01/25/2018. FINDINGS: Endotracheal tube and gastric tube remain in place. Heart size and mediastinum stable. Lung calderón generally stable and clear. IMPRESSION: 1. Stable support lines and tubes. No adverse interval change of the chest. Dictated by: Dictated on workstation # [id number]
[2018-01-26] MEDS: PANTOPRAZOLE 40 MG (PROTONIX) VIAL IV SCH (09:33)
--- NOTE | 2018-01-26 09:40 | Occ Therapy Progress Note ---
Therapy Progress Note Pt. on ventilator and sedated. Will hold OT evaluation until weaned and extubated. 0940 JOSR VASQUEZ OT Jan 26, 2018 09:40
[2018-01-26] MEDS ORDERED: PRED10TA22 PO (11:21)
--- NOTE | 2018-01-26 11:38 | Short Stay Summary-Hospitalist ---
NEIDA VALADEZ MED STUDENT 01/26/18 1138: History of Present Illness HPI/Chief Complaint CC: respiratory failure HPI: This is a 67 yo female patient admitted from the ER in [place] where she presented in an unresponsive state and intubated. She was found unresponsive by her and caregiver who describes a recent diagnosis of dementia which has been troubling for the patient. She was unattended for a short time and an empty bottle of vodka was found in the waste basket. In the ER , she was minimally responsive with a blood alcohol content of 330 and having trouble maintaining her airway and thus intubated requiring transfer from [place] for ventilator management. She was maintained on ventilator overnight with sedation and subsequently extubated this morning. Source: spouse Exam Limitations: other (dimentia, intubation) Date Seen 01/26/18 Time Seen by a Provider: 08:00 Attending Physician Traci Marie John M MD Referring Physician Date of Admission Jan 25, 2018 at 18:25 Home Medications & Allergies Home Medications Reviewed patient Home Medication Reconciliation performed by pharmacy medication reconciliations fire control technician b and/or nursing. Patients Allergies have been reviewed. Allergies Allergies Coded Allergies No Allergy Information Available (Unverified01/25/18) Past Fzbodxj-Kyckcs-Samvrw Hx Past Med/Social Hx: Reviewed Nursing Past Med/Soc Hx Patient Social History Marrital Status: Employed/Student: retired Alcohol Use: Occasionally Uses Smoking Status: Current Everyday Smoker Type Used: Cigarettes Recent Foreign Travel: No Contact w/other who traveled: No Past Medical History Surgeries: Gallbladder, Hysterectomy Respiratory: Emphysema Neurological: Dementia Psychosocial: Anxiety, Depression Review of Systems Constitutional: no symptoms reported EENTM: no symptoms reported Respiratory: other (unable to maintain airway, due to alcohol intoxication) Cardiovascular: no symptoms reported Gastrointestinal: no symptoms reported Genitourinary: no symptoms reported Musculoskeletal: no symptoms reported Skin: no symptoms reported Psychiatric/Neurological: Anxiety, Depressed, Other Physical Exam Physical Exam Vital Signs Vital Signs - First Documented 01/25/18 01/25/18 01/25/18 18:30 18:35 19:00 Temp 96.6 Pulse 71 Resp 15 B/P (MAP) 185/117 (139) Pulse Ox 100 O2 Delivery Mechanical Ventilator FiO2 100 Capillary Refill : Height, Weight, BMI Height: 5'3.00" Weight: 100lbs. 0.0oz. 45.299098od; 17.4 BMI Method: General Appearance: WD/WN, Anxious, Thin HEENT: Normal ENT Inspection Neck: Full Range of Motion, Normal Inspection, Non Tender, Supple Respiratory: Chest Non Tender, Lungs Clear, Normal Breath Sounds, No Accessory Muscle Use, No Respiratory Distress, Other Cardiovascular: Regular Rate, Rhythm, No Edema, No Gallop, No JVD, No Murmur, Normal Peripheral Pulses Gastrointestinal: Normal Bowel Sounds, Non Tender, Soft Back: Normal Inspection, No CVA Tenderness, No Vertebral Tenderness Extremity: Normal Capillary Refill, Normal Inspection, Normal Range of Motion, Non Tender, No Calf Tenderness, No Pedal Edema Neurologic/Psychiatric: Alert, Normal Mood/Affect Skin: Normal Color, Warm/Dry Lymphatic: No Adenopathy Results Results/Procedures Labs Laboratory Tests 01/25/18 19:20 01/26/18 03:02 Patient resulted labs reviewed. Short Stay Diagnosis Discharge Diagnosis-Short Stay Admission Diagnosis respiratory failure, alcohol intoxication Final Discharge Diagnosis alcohol intoxication, resolved Conclusion Plan Plan Follow up outpatient with Dr. Child to assess respiratory function Follow up with psychiatry Screen Stretcher on alcohol use Diagnosis/Problems Diagnosis/Problems (1) Dementia Status: Chronic Qualifiers: (2) Depressed Status: Chronic Qualifiers: Qualified Codes: F32.9 - Major depressive disorder, single episode, unspecified (3) Anxiety Status: Chronic (4) Alcohol intoxication Status: Acute (5) Respiratory failure Status: Resolved Qualifiers: Qualified Codes: J96.00 - Acute respiratory failure, unspecified whether with hypoxia or hypercapnia Clinical Quality Measures DVT/VTE Risk/Contraindication: Risk Factor Score Per Nursin RFS Level Per Nursing on Admit: 4+=Very High TRACI MARIE DO 01/26/18 1712: History of Present Illness HPI/Chief Complaint CC: Intubation HPI: This is a patient that I accepted from [facility] in [facility] who presented to their ER w/acute alcohol intoxication. Apparently she has significant dementia and her is taking care of her the best he can but she drank an entire bottle of vodka and thus had BAL of 330 and could not protect her airway so she was intubated. Patient has improve enough to have been extubated and now ready to go home. Source: patient, family, RN/MD Time Seen by a Provider: 10:00 Home Medications & Allergies Home Medications Reviewed Past Ckhksyl-Snhwum-Mtuqxg Hx Past Med/Social Hx: Reviewed Nursing Past Med/Soc Hx, Reviewed and Corrections made Patient Social History Marrital Status: Employed/Student: retired Alcohol Use: Occasionally Uses Smoking Status: Current Someday Smoker Past Medical History Surgeries: Gallbladder, Hysterectomy Respiratory: COPD, Emphysema Neurological: Dementia Psychosocial: Anxiety, Depression Family History Hypertension Review of Systems ROS-Unable to Obtain: unable to ascertain due to dementia Constitutional: see HPI Physical Exam Physical Exam General Appearance: No Apparent Distress, WD/WN, Chronically ill, Thin Eyes: Bilateral Eye Normal Inspection, Bilateral Eye PERRL HEENT: PERRL/EOMI, TMs Normal, Normal ENT Inspection, Pharynx Normal Neck: Full Range of Motion, Normal Inspection, Non Tender, Supple, Carotid Bruit Respiratory: Chest Non Tender, Lungs Clear, Normal Breath Sounds, No Accessory Muscle Use, No Respiratory Distress Cardiovascular: Regular Rate, Rhythm, No Edema, No Gallop, No JVD, No Murmur, Normal Peripheral Pulses Gastrointestinal: Normal Bowel Sounds, No Organomegaly, No Pulsatile Mass, Non Tender, Soft Back: Normal Inspection, No CVA Tenderness, No Vertebral Tenderness Extremity: Normal Capillary Refill, Normal Inspection, Normal Range of Motion, Non Tender, No Calf Tenderness, No Pedal Edema Neurologic/Psychiatric: Alert, No Motor/Sensory Deficits, Normal Mood/Affect, Disoriented Skin: Normal Color, Warm/Dry Lymphatic: No Adenopathy Short Stay Diagnosis Discharge Diagnosis-Short Stay Admission Diagnosis Acute alcohol intoxication requiring intubation for respiratory failure Severe dementia Smoker Final Discharge Diagnosis Acute alcohol intoxication requiring intubation for respiratory failure Severe dementia Smoker Conclusion Plan DC home Monitor closely Diagnosis/Problems Diagnosis/Problems (1) Alcohol intoxication Status: Acute (2) Dementia Status: Chronic Qualifiers: (3) Depressed Status: Chronic Qualifiers: Qualified Codes: F32.9 - Major depressive disorder, single episode, unspecified (4) Anxiety Status: Chronic (5) Respiratory failure Status: Resolved Qualifiers: Qualified Codes: J96.00 - Acute respiratory failure, unspecified whether with hypoxia or hypercapnia NEIDA VALADEZ MED STUDENT Jan 26, 2018 11:38 TRACI MARIE DO Jan 26, 2018 17:12
[2018-01-26] MEDS ORDERED: methylPREDNISolone 40 MG/ML (Solu-MEDROL) VIAL IV SCH (12:00)
[2018-01-27] MEDS ORDERED: ENOXAPARIN 30 MG/0.3 ML (LOVENOX) SYR SC SCH (09:00)
== END 2018-01-26 12:00 | disposition home or self-care (01) | DRG 208 ==
LOC: ICU 18:25
PROVIDERS: ADMIT Internal Medicine; ATTEND Internal Medicine
PROC: 5A1935Z Respiratory Ventilation, Less than 24 Consecutive Hours (ICD-10-PCS; principal; 2018-01-25)
DX: J96.00 Acute respiratory failure, unspecified whether with hypoxia or hypercapnia (principal); F10.129 Alcohol abuse with intoxication, unspecified; J43.9 Emphysema, unspecified; F17.210 Nicotine dependence, cigarettes, uncomplicated; D72.829 Elevated white blood cell count, unspecified; F03.90 Unspecified dementia, unspecified severity, without behavioral disturbance, psychotic disturbance, mood disturbance, and anxiety; F41.9 Anxiety disorder, unspecified; F32.9 Major depressive disorder, single episode, unspecified
CPT/HCPCS: 36415; 36600; 71045; 80053; 80320; 82533; 82805; 82962; 83605; 83735; 84100; 84439; 84443; 84478; 85007; 85025; 85027; 87070; 87081; 87205; 87324; 87449; 94002; 94640

== ENCOUNTER → 2018-02-16 | Outpatient (CLI) | payer MEDICARE, OTHER ==
[~2018-02-16] MED LIST: CHOL4PAC16 PO; CLOB15GE TP; DIAZ5TAB3 PO; ESTR0.62 PO; HYDR-3820 PO; LEVO50TA6 PO; MIRT30TA6 PO; MIRT30TA8 PO; PRED10TA22 PO; ROSU5TAB12 PO; RT-ALBUTEROL SULF 2.5 MG/3 ML PRE-MIX VIAL INH ONE; TRAZ-189 PO; ZIPR40CA26 PO
--- NOTE | 2018-02-16 13:40 | Diagnostic Imaging Report ---
PROCEDURE: CT chest without contrast. TECHNIQUE: Multiple contiguous axial images were obtained through the chest without the use of intravenous contrast. INDICATION: COPD and dyspnea. COMPARISON: No prior chest CTs are available for comparison. FINDINGS: No axillary lymphadenopathy is seen. Hilar and mediastinal evaluation is limited without intravenous contrast but no gross abnormality is seen. No pericardial or pleural fluid is identified. Central airways are patent. Lungs are hyperinflated. No mass is seen. No infiltrate is identified. There is a small nodule in the lingula approximately 5 mm in size, indeterminate. Upper abdomen is unremarkable. IMPRESSION: No acute features identified. There are findings suggestive of COPD. There is a 5 mm nodule in the lingula. Followup in six months could be performed to confirm stability. No other significant abnormality is detected. Dictated by: Dictated on workstation # [id number]
== END ==
LOC: RAD 12:15
PROVIDERS: ATTEND Nurse Practitioner Family
DX: J44.9 Chronic obstructive pulmonary disease, unspecified (principal); R91.1 Solitary pulmonary nodule; F17.200 Nicotine dependence, unspecified, uncomplicated
CPT/HCPCS: 71250; 94060; 94726; 94729

== ENCOUNTER 2018-11-09 12:12 | Emergency (ER) | payer MEDICARE, OTHER ==
[~2018-11-09] VITALS: Ht 160 cm; Wt 52.2 kg
[~2018-11-09 12:12] MED LIST changes: +MIRT-48 PO; -MIRT30TA8 PO; -RT-ALBUTEROL SULF 2.5 MG/3 ML PRE-MIX VIAL INH ONE; -TRAZ-189 PO; +TRAZ-222 PO
[2018-11-09 12:53] LABS: HEMATOCRIT 41 % (35-52); HEMOGLOBIN 13.4 G/DL (11.5-16.0); LYMPHOCYTES % (AUTO) 22 % (12-44); MEAN CORPUSCULAR HEMOGLOBIN 33 PG (25-34); MEAN CORPUSCULAR HGB CONC 33 G/DL (32-36); MEAN CORPUSCULAR VOLUME 101 FL (80-99); MEAN PLATELET VOLUME 9.5 FL (7.4-10.4); MONOCYTES % (AUTO) 7 % (0-12); NEUTROPHILS % (AUTO) 71 % (42-75); PLATELET COUNT 273 10^3/uL (130-400); RED CELL DISTRIBUTION WIDTH 13.1 % (10.0-14.5); WHITE BLOOD COUNT 9.1 10^3/uL (4.3-11.0)
[2018-11-09 12:54] LABS: BASOPHILS # (AUTO) 0.1 10^3/uL (0.0-0.1); BASOPHILS % (AUTO) 1 % (0-10); EOSINOPHILS % (AUTO) 0 % (0-10); MONOCYTES # (AUTO) 0.6 X 10^3 (0.0-1.0); NEUTROPHILS # (AUTO) 6.4 X 10^3 (1.8-7.8)
[2018-11-09 12:59] LABS: BILIRUBIN,URINE NEGATIVE (NEGATIVE); CLARITY,URINE SLT CLOUDY; COLOR,URINE YELLOW; GLUCOSE, URINE (UA) NEGATIVE (NEGATIVE); KETONES,URINE NEGATIVE (NEGATIVE); LEUKOCYTE ESTERASE ,URINE NEGATIVE (NEGATIVE); NITRITE,URINE NEGATIVE (NEGATIVE); PROTEIN,URINE 2+ (NEGATIVE); UROBILINOGEN,URINE 0.2 MG/DL (NORMAL)
[2018-11-09 13:00] LABS: BACTERIA,URINE FEW /HPF; SQUAMOUS EPITHELIAL CELL,UR 25-50 /HPF
[2018-11-09 13:08] LABS: ALBUMIN 4.3 GM/DL (3.2-4.5); BILIRUBIN,TOTAL 0.6 MG/DL (0.1-1.0); CALCIUM 9.9 MG/DL (8.5-10.1); CREATININE SERUM 1.07 MG/DL (0.60-1.30); POTASSIUM 4.6 MMOL/L (3.6-5.0)
--- NOTE | 2018-11-09 13:25 | ED Syncope ---
General Chief Complaint: Dizziness/Syncope Stated Complaint: VOMITING/FALL Nursing Triage Note: Patient's reports patient was walking across the room to eat breakfast when she "went limp", believes patient was briefly unconscious. reports patient has been vomiting for 3 days approximately 2 times per day 1 hour after eating. He believes she is still taking in as much food and fluids as she normally does. He reports she just started using marijuana within the last 2 days to help with her dementia. History of Present Illness Date Seen by Provider: Nov 09, 2018 Time Seen by Provider: 13:20 Initial Comments The patient is a 68-year-old white female referred here by urgent care. Her gives the history. He reports that they normally get up between 6 and 630 in the morning. This morning she told him she wanted to sleep longer. He brought her a 5 mg Valium. She then arose at about 9 o'clock. She was sitting in a chair and he prepared her breakfast. He brought to breakfast and on a tray and realize that he had not placed the TV tray. He asked her to go get it which she did and about snf into her return she sank slowly to the floor. He is not clear as to whether she was actually unconscious but she did not respond to voice. He was unable to help her up and called his son. They got her up and put her back in the chair. She appeared to be alert but did not respond to questioning. There was no seizure activity. He reports that she has been vomi ting approximately twice a day for the past 2-3 days. He states that she has been evaluated for the possibility of dementia. He has not been given an unequivocal medical opinion yet. Old records show that she had a problem with alcohol abuse in the past. There was an admission to the [facility] about one year ago because of alcohol overdose and an admitting alcohol level of 330. This does not appear to be possible today. Timing/Prior Episodes: No Prior History Current Symptoms: Back to Normal Allergies and Home Medications Allergies Coded Allergies: Sulfa (Sulfonamide Antibiotics) (Verified Allergy, Unknown, 11/09/18) adhesive tape (Verified Allergy, Unknown, 11/09/18) benztropine (Verified Allergy, Unknown, 11/09/18) cephalexin (Verified Allergy, Unknown, 11/09/18) gabapentin (Verified Allergy, Unknown, 11/09/18) latex (Verified Allergy, Unknown, 11/09/18) medroxyprogesterone (Verified Allergy, Unknown, 11/09/18) nickel (Verified Allergy, Unknown, 11/09/18) nitrofurantoin (Verified Allergy, Unknown, 11/09/18) tramadol (Verified Allergy, Unknown, 11/09/18) Home Medications Cholestyramine (with Sugar) 4 Gm Powd.pack, 4 GM PO BID PRN for DIARRHEA, (Reported) Clobetasol Propionate 15 Gm Gel..gram., TP UD PRN for SKIN SORE, (Reported) Diazepam 5 Mg Tablet, 5 MG PO Q6H PRN for ANXIETY, (Reported) Estrogens, Conjugated 0.625 Mg Tablet, 0.625 MG PO DAILY, (Reported) Hydrocodone/Acetaminophen 1 Each Tablet, 1 TAB PO TID PRN for PAIN-MODERATE, (Reported) Levothyroxine Sodium 50 Mcg Tablet, 50 MCG PO DAILY, (Reported) Mirtazapine 30 Mg Tablet, 30 MG PO HS, (Reported) Prednisone 10 Mg Tab.ds.pk, 20 MG PO DAILY Prescribed by: CORIN SULLIVAN on 01/26/18 1121 Rosuvastatin Calcium 5 Mg Tablet, 5 MG PO DAILY, (Reported) Trazodone HCl 50 Mg Tablet, 50 MG PO HS, (Reported) Ziprasidone HCl 40 Mg Capsule, 40 MG PO BID, (Reported) Patient Home Medication List Home Medication List Reviewed: Yes Review of Systems Constitutional: see HPI EENTM: no symptoms reported Respiratory: no symptoms reported Cardiovascular: no symptoms reported Gastrointestinal: nausea, vomiting Musculoskeletal: muscle weakness Skin: no symptoms reported Psychiatric/Neurological: Depressed, Other Past Fprewyd-Uexhhr-Cozxdi Hx Past Med/Social Hx: Reviewed Nursing Past Med/Soc Hx Patient Social History Alcohol Use: Denies Use Recreational Drug Use: Yes ( states patient just started using within the last 2 days.) Drug of Choice: Marijuana Smoking Status: Never a Smoker Type Used: Cigarettes 2nd Hand Smoke Exposure: No Recent Foreign Travel: No Contact w/Someone Who Travel: No Recent Infectious Disease Expo: No Recent Hopitalizations: No Physical Abuse: No Sexual Abuse: No Mistreated: No Fear: No Seasonal Allergies Seasonal Allergies: No Past Medical History Surgeries: Yes Gallbladder, Hysterectomy Respiratory: Yes Emphysema Cardiac: No Neurological: Yes (narcolepsy) Dementia Genitourinary: No Gastrointestinal: Yes Irritable Bowel Musculoskeletal: No Endocrine: Yes Hypothyroidsim HEENT: No Cancer: No Psychosocial: Yes ADD/ADHD, Anxiety, Bipolar, Depression Integumentary: No Family Medical History Hypertension Physical Exam Vital Signs Vital Signs - First Documented 11/09/18 12:25 Temp 97.6 Pulse 77 Resp 25 B/P (MAP) 111/68 (82) Pulse Ox 97 O2 Delivery Room Air Capillary Refill : Less Than 3 Seconds Height, Weight, BMI Height: 5'3.00" Weight: 115lbs. 0.0oz. 52.223246ib; 17.4 BMI Method:Stated General Appearance: No Apparent Distress HEENT: Normal ENT Inspection Neck: Full Range of Motion, Normal Inspection, Non Tender, Supple Cardiovascular: Regular Rate, Rhythm, No Edema, No Gallop, No JVD, No Murmur, Normal Peripheral Pulses Respiratory: Chest Non Tender, Lungs Clear, Normal Breath Sounds, No Accessory Muscle Use, No Respiratory Distress Gastrointestinal: Normal Bowel Sounds, No Organomegaly, No Pulsatile Mass, Non Tender, Soft Extremities: Normal Capillary Refill, Normal Inspection, Normal Range of Motion, Non Tender, No Calf Tenderness, No Pedal Edema Neurologic/Psychiatric: Alert, senior account manager II-XII Norm as Tested, Other (she followed directions appropriately but did not attempt to speak) Cranial Nerves: Normal Hearing, PERRL Motor/Sensory: No Motor Deficit, No Sensory Deficit Procedures/Interventions Date of ETT Placement: Jan 25, 2018 Progress/Results/Core Measures Results/Orders Lab Results Laboratory Tests Test 11/09/18 12:25 Range/Units White Blood Count 9.1 4.3-11.0 10^3/uL Red Blood Count 4.08 L 4.35-5.85 10^6/uL Hemoglobin 13.4 11.5-16.0 G/DL Hematocrit 41 35-52 % Mean Corpuscular Volume 101 H 80-99 FL Mean Corpuscular Hemoglobin 33 25-34 PG Mean Corpuscular Hemoglobin Concent 33 32-36 G/DL Red Cell Distribution Width 13.1 10.0-14.5 % Platelet Count 273 130-400 10^3/uL Mean Platelet Volume 9.5 7.4-10.4 FL Neutrophils (%) (Auto) 71 42-75 % Lymphocytes (%) (Auto) 22 12-44 % Monocytes (%) (Auto) 7 0-12 % Eosinophils (%) (Auto) 0 0-10 % Basophils (%) (Auto) 1 0-10 % Neutrophils # (Auto) 6.4 1.8-7.8 X 10^3 Lymphocytes # (Auto) 2.0 1.0-4.0 X 10^3 Monocytes # (Auto) 0.6 0.0-1.0 X 10^3 Eosinophils # (Auto) 0.0 0.0-0.3 10^3/uL Basophils # (Auto) 0.1 0.0-0.1 10^3/uL Urine Color YELLOW Urine Clarity SLT CLOUDY Urine pH 6.0 5-9 Urine Specific [place] >=1.030 1.016-1.022 Urine Protein 2+ H NEGATIVE Urine Glucose (UA) NEGATIVE NEGATIVE Urine Ketones NEGATIVE NEGATIVE Urine Nitrite NEGATIVE NEGATIVE Urine Bilirubin NEGATIVE NEGATIVE Urine Urobilinogen 0.2 NORMAL MG/DL Urine Leukocyte Esterase NEGATIVE NEGATIVE Urine RBC (Auto) 1+ H NEGATIVE Urine RBC 2-5 H /HPF Urine WBC NONE /HPF Urine Squamous Epithelial Cells 25-50 H /HPF Urine Crystals NONE /LPF Urine Bacteria FEW H /HPF Urine Casts NONE /LPF Urine Mucus SMALL H /LPF Urine Culture Indicated NO Sodium Level 137 135-145 MMOL/L Potassium Level 4.6 3.6-5.0 MMOL/L Chloride Level 100 98-107 MMOL/L Carbon Dioxide Level 24 21-32 MMOL/L Anion Gap 13 5-14 MMOL/L Blood Urea Nitrogen 18 7-18 MG/DL Creatinine 1.07 0.60-1.30 MG/DL Estimat Glomerular Filtration Rate 51 BUN/Creatinine Ratio 17 Glucose Level 109 H 70-105 MG/DL Calcium Level 9.9 8.5-10.1 MG/DL Corrected Calcium 9.7 8.5-10.1 MG/DL Total Bilirubin 0.6 0.1-1.0 MG/DL Aspartate Amino Transf (AST/SGOT) 21 5-34 U/L Alanine Aminotransferase (ALT/SGPT) 20 0-55 U/L Alkaline Phosphatase 64 40-136 U/L Total Protein 7.0 6.4-8.2 GM/DL Albumin 4.3 3.2-4.5 GM/DL My Orders Orders - NABILA MARR MD Ua Culture If Indicated (11/09/18 12:31) Cbc With Automated Diff (11/09/18 12:33) Comprehensive Metabolic Panel (11/09/18 12:33) Vital Signs/I&O 11/09/18 12:25 Temp 97.6 Pulse 77 Resp 25 B/P (MAP) 111/68 (82) Pulse Ox 97 O2 Delivery Room Air Blood Pressure Mean: 82 Departure Communication (Admissions) CBC, CMP and UA within normal limits. Impression Primary Impression: single syncopal episode Disposition: HOME, SELF-CARE Condition: Stable/Unchanged Departure-Patient Inst. Decision time for Depature: 13:29 Referrals: DENA MADERA MD (PCP/Family) Primary Care Physician Patient Instructions: Syncope (Fainting) (DC) Add. Discharge Instructions: All discharge instructions reviewed with patient and/or family. Voiced understanding. Continue to observe. Reduce Valium to 2.5 mg by splitting the yellow tablets. She should take no more than 3 daily. If further problems see your physician NABILA MARR MD Nov 09, 2018 13:25
[2018-11-09 13:49] VITALS: BP 124/75
--- OUTSIDE RECORDS SUMMARY | 2018-11-09 21:06 | XMS REPORT ---
Author Author ANGELITO CRISTOPHER Organization [facility] Address [address] [place] [address] Care Team Providers Care Laborer [employer]arch [employer] Name Role Phone HERBERTLAZ CRISTOPHER Unavailable PROBLEMS Type Condition ICD9-CM Code WJS17-BY Code Onset Dates Condition Status SNOMED Code Problem Dementia in other diseases classified elsewhere without behavioral disturbance F02.80 Active 451993789 Problem Alzheimer's disease, unspecified G30.9 Active 720169480 Problem Bipolar 1 disorder, depressed, partial remission F31.75 Active 49740249 Problem Severe episode of recurrent major depressive disorder, without psychotic features F33.2 Active 19883073 ALLERGIES No Information ENCOUNTERS Encounter Location Date Diagnosis [facility] [id number] [place] [phone] May, [facility] [id number] [place] [phone] Mar, [facility] [id number] [place] [phone] Mar, Dementia in other diseases classified elsewhere without behavioral disturbance F02.80 and Bipolar 1 disorder, depressed, partial remission F31.75 [facility] [address] [place] [address] Mar, [facility] [id number] [place] [phone] Jan, Alzheimer's disease, unspecified G30.9 ; Dementia in other diseases classified elsewhere without behavioral disturbance F02.80 and Bipolar 1 disorder, depressed, partial remission F31.75 [facility] [address] [place] [phone] Dec, [facility] [id number] [place] [address] [place] [address] Dec, [facility] [address] [address] Nov, Alzheimer's disease, unspecified G30.9 [facility] [address] [address] Nov, Alzheimer's disease, unspecified G30.9 ; Bipolar 1 disorder, depressed, partial remission F31.75 and Dementia in other diseases classified elsewhere without behavioral disturbance F02.80 [place] [address] [address] Sep, Alzheimer's disease, unspecified G30.9 ; Bipolar 1 disorder, depressed, partial remission F31.75 and Dementia in other diseases classified elsewhere without behavioral disturbance F02.80 [address] [address] August, Alzheimer's disease, unspecified G30.9 ; Bipolar 1 disorder, depressed, partial remission F31.75 and Dementia in other diseases classified elsewhere without behavioral disturbance F02.80 [address] [address] Jul, [address] [address] Jun, [place] [address] [address] Jun, Alzheimer's disease, unspecified G30.9 ; Bipolar 1 disorder, depressed, partial remission F31.75 and Dementia in other diseases classified elsewhere without behavioral disturbance F02.80 [address] [address] Jun, Bipolar 1 disorder, depressed, partial remission F31.75 ; Alzheimer's disease, unspecified G30.9 and Dementia in other diseases classified elsewhere without behavioral disturbance F02.80 [address] [address] [address] May, Bipolar 1 disorder, depressed, partial remission F31.75 ; Alzheimer's disease, unspecified G30.9 and Dementia in other diseases classified elsewhere without behavioral disturbance F02.80 [address] [place], [place] [id number] Mar, Dementia in other diseases classified elsewhere without behavioral disturbance F02.80 [id number] [place] [address] Mar, Dementia in other diseases classified elsewhere without behavioral disturbance F02.80 ; Bipolar 1 disorder, depressed, partial remission F31.75 and Alzheimer's disease, unspecified G30.9 [id number] [place] [address] Mar, Dementia in other diseases classified elsewhere without behavioral disturbance F02.80 ; Alzheimer's disease, unspecified G30.9 and Bipolar 1 disorder, depressed, partial remission F31.75 [place] [id number] [place] [phone] August, [place] [id number] [place] [address] Jun, Severe episode of recurrent major depressive disorder, without psychotic features F33.2 IMMUNIZATIONS No Known Immunizations SOCIAL HISTORY Never Assessed REASON FOR VISIT medication PLAN OF CARE VITAL SIGNS MEDICATIONS Medication Instructions Dosage Frequency Start Date End Date Duration Status Namenda 5 MG Orally daily 1 tablet nightly for one week then take twice a day 24h Mar, 90 days Active RESULTS No Results PROCEDURES [...]
--- OUTSIDE RECORDS SUMMARY | 2018-11-09 21:06 | XMS REPORT ---
Author Author ANGELITO CRISTOPHER Organization [facility] Address [address] [place] [address] Care Team Providers Care Strategic Alliances Manager Name Role Phone HERBERTJACKELYN NESBITTA Unavailable PROBLEMS Type Condition ICD9-CM Code WOS04-SN Code Onset Dates Condition Status SNOMED Code Problem Dementia in other diseases classified elsewhere without behavioral disturbance F02.80 Active 716112696 Problem Alzheimer's disease, unspecified G30.9 Active 090744072 Problem Bipolar 1 disorder, depressed, partial remission F31.75 Active 07488868 Problem Severe episode of recurrent major depressive disorder, without psychotic features F33.2 Active 12120607 ALLERGIES No Information ENCOUNTERS Encounter Location Date Diagnosis [facility] [id number] [place] [phone] May, [facility] [id number] [place] [phone] Mar, [facility] [id number] [place] [address] Mar, Dementia in other diseases classified elsewhere without behavioral disturbance F02.80 and Bipolar 1 disorder, depressed, partial remission F31.75 [facility] [id number] [place] [address] Mar, [facility] [id number] [place] [phone] Jan, Alzheimer's disease, unspecified G30.9 ; Dementia in other diseases classified elsewhere without behavioral disturbance F02.80 and Bipolar 1 disorder, depressed, partial remission F31.75 [facility] [id number] [place] [phone] Dec, [facility] [id number] [place] [address] [place] [address] Dec, [facility] [address] [address] Nov, Alzheimer's disease, unspecified G30.9 [facility] [address] [address] Nov, Alzheimer's disease, unspecified G30.9 ; Bipolar 1 disorder, depressed, partial remission F31.75 and Dementia in other diseases classified elsewhere without behavioral disturbance F02.80 [address] [address] [address] Sep, Alzheimer's disease, unspecified G30.9 ; Bipolar 1 disorder, depressed, partial remission F31.75 and Dementia in other diseases classified elsewhere without behavioral disturbance F02.80 [address] [address] [address] August, Alzheimer's disease, unspecified G30.9 ; Bipolar 1 disorder, depressed, partial remission F31.75 and Dementia in other diseases classified elsewhere without behavioral disturbance F02.80 [address] [address] [address] Jul, [place] [address] [address] [address] Jun, [place] [address] [address] Jun, Alzheimer's disease, unspecified G30.9 ; Bipolar 1 disorder, depressed, partial remission F31.75 and Dementia in other diseases classified elsewhere without behavioral disturbance F02.80 [address] [address] [address] [address] Jun, Bipolar 1 disorder, depressed, partial remission F31.75 ; Alzheimer's disease, unspecified G30.9 and Dementia in other diseases classified elsewhere without behavioral disturbance F02.80 [address] [address] [address] [address] May, Bipolar 1 disorder, depressed, partial remission F31.75 ; Alzheimer's disease, unspecified G30.9 and Dementia in other diseases classified elsewhere without behavioral disturbance F02.80 [address] [address] [id number] [place] [address] Mar, Dementia in other diseases classified elsewhere without behavioral disturbance F02.80 [place] [id number] [place] [address] Mar, Dementia in other diseases classified elsewhere without behavioral disturbance F02.80 ; Bipolar 1 disorder, depressed, partial remission F31.75 and Alzheimer's disease, unspecified G30.9 [address] [id number] [place] [address] Mar, Dementia in other diseases classified elsewhere without behavioral disturbance F02.80 ; Alzheimer's disease, unspecified G30.9 and Bipolar 1 disorder, depressed, partial remission F31.75 [place] [id number] [place] [phone] August, [address] [id number] [place] [phone] Jun, Severe episode of recurrent major depressive disorder, without psychotic features F33.2 IMMUNIZATIONS No Known Immunizations SOCIAL HISTORY Never Assessed REASON FOR VISIT SOCWK Intake PLAN OF CARE VITAL SIGNS MEDICATIONS Medication Instructions Dosage Frequency Start Date End Date Duration Status Remeron 30 MG Orally Once a day 1 tablet at bedtime 24h Active Ziprasidone HCl 40 mg Orally Twice a day 1 capsule with food 12h Active Crestor 5 MG Orally Once a day 1 tablet 24h Active Albuterol Sulfate Active Trazodone HCl 100 mg Orally Once a day 1 tablet at bedtime as needed 24h Active Namenda 5 MG Orally daily 1 tablet nightly for one week then take twice a day 24h Mar, Active Premarin 0.625 MG Orally Daily for Three Weeks, 1 Week off 1 tablet Active Vitamin D3 1000 UNIT Orally Once a day 1 capsule 24h Active Erie 10-325 MG Orally 3 times a day 1 tablet as needed 8h Active Deplin 7.5 7.5-90.314 MG Orally Once a day 1 capsule 24h 1 Placido, 2019 Active Synthroid 50 MCG Orally Once a day 1 tablet on an empty stomach in the morning 24h Active RESULTS No Results PROCEDURES No Known [...]
--- OUTSIDE RECORDS SUMMARY | 2018-11-09 21:06 | XMS REPORT ---
Author Author ANGELITO CRISTOPHER Organization [facility] Address [address] [place] [address] Care Team Providers Care Oven Attendant Name Role Phone HERBERTLAZ CRISTOPHER Unavailable PROBLEMS Type Condition ICD9-CM Code [id number] Code Onset Dates Condition Status SNOMED Code Problem Dementia in other diseases classified elsewhere without behavioral disturbance F02.80 Active 296183004 Problem Alzheimer's disease, unspecified G30.9 Active 694556394 Problem Bipolar 1 disorder, depressed, partial remission F31.75 Active 29439133 Problem Severe episode of recurrent major depressive disorder, without psychotic features F33.2 Active 55573095 ALLERGIES No Information ENCOUNTERS Encounter Location Date Diagnosis [facility] [id number] [place] [address] May, [facility] [id number] [place] [address] Mar, [facility] [id number] [place] [address] Mar, Dementia in other diseases classified elsewhere without behavioral disturbance F02.80 and Bipolar 1 disorder, depressed, partial remission F31.75 [facility] [id number] [place] [address] Mar, [facility] [id number] [place] [address] Jan, Alzheimer's disease, unspecified G30.9 ; Dementia in other diseases classified elsewhere without behavioral disturbance F02.80 and Bipolar 1 disorder, depressed, partial remission F31.75 [facility] [id number] [place] [address] Dec, [facility] [id number] [place] [address] [place] [address] Dec, [facility] [id number] [address] Nov, Alzheimer's disease, unspecified G30.9 [facility] [address] [address] Nov, Alzheimer's disease, unspecified G30.9 ; Bipolar 1 disorder, depressed, partial remission F31.75 and Dementia in other diseases classified elsewhere without behavioral disturbance F02.80 [place] [address] [address] Sep, Alzheimer's disease, unspecified G30.9 ; Bipolar 1 disorder, depressed, partial remission F31.75 and Dementia in other diseases classified elsewhere without behavioral disturbance F02.80 [place] [address] [address] August, Alzheimer's disease, unspecified G30.9 ; Bipolar 1 disorder, depressed, partial remission F31.75 and Dementia in other diseases classified elsewhere without behavioral disturbance F02.80 [place] [address] [address] Jul, [place] [address] [address] Jun, [place] [address] [address] Jun, Alzheimer's disease, unspecified G30.9 ; Bipolar 1 disorder, depressed, partial remission F31.75 and Dementia in other diseases classified elsewhere without behavioral disturbance F02.80 [place] [address] [address] Jun, Bipolar 1 disorder, depressed, partial remission F31.75 ; Alzheimer's disease, unspecified G30.9 and Dementia in other diseases classified elsewhere without behavioral disturbance F02.80 [place] [address] [address] May, Bipolar 1 disorder, depressed, partial remission F31.75 ; Alzheimer's disease, unspecified G30.9 and Dementia in other diseases classified elsewhere without behavioral disturbance F02.80 [place] [address] [place] [id number] Mar, Dementia in other diseases classified elsewhere without behavioral disturbance F02.80 [place] [id number] [place] [address] Mar, 2017 Dementia in other diseases classified elsewhere without behavioral disturbance F02.80 ; Bipolar 1 disorder, depressed, partial remission F31.75 and Alzheimer's disease, unspecified G30.[address] [id number] [place] [id number] 14 Mar, 2017 Dementia in other diseases classified elsewhere without behavioral disturbance F02.80 ; Alzheimer's disease, unspecified G30.9 and Bipolar 1 disorder, depressed, partial remission F31.75 [place] [id number] [place] [address] August, [place] [id number] [place] [address] Jun, Severe episode of recurrent major depressive disorder, without psychotic features F33.2 IMMUNIZATIONS No Known Immunizations SOCIAL HISTORY Never Assessed REASON FOR VISIT f/u Eloy hill ma PLAN OF CARE Activity Details Follow Up 3 Months Reason: VITAL SIGNS Height 63 in 2018-03-20 Weight 109.9 lbs 2018-03-20 Heart Rate 75 bpm 2018-03-20 Respiratory Rate 20 2018-03-20 BMI 19.47 kg/m2 2018-03-20 Blood pressure systolic 100 mmHg 2018-03-20 Blood pressure diastolic 60 mmHg 2018-03-20 MEDICATIONS Medication Instructions Dosage Frequency Start Date End Date Duration Status Namenda 5 MG Orally daily 1 tablet nightly for one week then take twice a day 24h Mar, Active Remeron 30 MG Orally Once a day 1 tablet at bedtime 24h Active Ziprasidone HCl 40 mg Orally Twice a day 1 capsule with food 12h Active Crestor 5 MG Orally Once a day 1 tablet 24h Active Premarin 0.625 MG Orally Daily for Three Weeks, 1 Week off 1 tablet Active Albuterol Sulfate Active Vitamin D3 1000 UNIT Orally Once a day 1 capsule 24h Active Deplin 7.5 7.5-90.314 MG Orally Once a day 1 capsule 24h 1 Oct, 2018 Active Synthroid 50 MCG Orally Once a day 1 tablet on an empty stomach in the morning 24h Active Trazodone HCl 100 mg Orally Once a day 1 tablet at bedtime as needed 24h Active Brice 10-325 MG Orally 3 times a day 1 tablet as needed 8h Active RESULTS No Results PROCEDURES Procedure Date Ordered Result Body Site [facility] VISIT ESTABLISHED PATIENT Mar 20, 2018 INSTRUCTIONS MEDICATIONS ADMINISTERED No Known Medications MEDICAL [...]
--- OUTSIDE RECORDS SUMMARY | 2018-11-09 21:07 | XMS REPORT ---
Author Author CRISTOPHER EATON Organization [facility] Address [address] [place] [address] Care Team Providers Care Community Fundraiser Name Role Phone HERBERTLAZ CRISTOPHER Unavailable PROBLEMS Type Condition ICD9-CM Code QXF95-VM Code Onset Dates Condition Status SNOMED Code Problem Dementia in other diseases classified elsewhere without behavioral disturbance F02.80 Active 432440291 Problem Alzheimer's disease, unspecified G30.9 Active 682562612 Problem Bipolar 1 disorder, depressed, partial remission F31.75 Active 82748544 Problem Severe episode of recurrent major depressive disorder, without psychotic features F33.2 Active 48406620 ALLERGIES No Information ENCOUNTERS Encounter Location Date Diagnosis [place] [id number] [address] Jan, Alzheimer's disease, unspecified G30.9 ; Dementia in other diseases classified elsewhere without behavioral disturbance F02.80 and Bipolar 1 disorder, depressed, partial remission F31.75 [place] [id number] [place] [address] Dec, [place] [id number] [place] [address] Dec, [place] [id number] [place] [address] Nov, Alzheimer's disease, unspecified G30.9 [place] [address] [address] Nov, Alzheimer's disease, unspecified G30.9 ; Bipolar 1 disorder, depressed, partial remission F31.75 and Dementia in other diseases classified elsewhere without behavioral disturbance F02.80 [place] [id number] [place] [address] Sep, Alzheimer's disease, unspecified G30.9 ; Bipolar 1 disorder, depressed, partial remission F31.75 and Dementia in other diseases classified elsewhere without behavioral disturbance F02.80 [place] [address], [place] [address] August, Alzheimer's disease, unspecified G30.9 ; Bipolar 1 disorder, depressed, partial remission F31.75 and Dementia in other diseases classified elsewhere without behavioral disturbance F02.80 [place] [address], [place] [address] Jul, [place] [id number] [place] [address] Jun, [facility] [id number] [address] Jun, Alzheimer's disease, unspecified G30.9 ; Bipolar 1 disorder, depressed, partial remission F31.75 and Dementia in other diseases classified elsewhere without behavioral disturbance F02.80 [place] [address], [place] [address] Jun, Bipolar 1 disorder, depressed, partial remission F31.75 ; Alzheimer's disease, unspecified G30.9 and Dementia in other diseases classified elsewhere without behavioral disturbance F02.80 [place] [address], [place] [address] May, Bipolar 1 disorder, depressed, partial remission F31.75 ; Alzheimer's disease, unspecified G30.9 and Dementia in other diseases classified elsewhere without behavioral disturbance F02.80 [place] [address], [place] [address] Mar, Dementia in other diseases classified elsewhere without behavioral disturbance F02.80 [facility] [address], [place] [address] Mar, Dementia in other diseases classified elsewhere without behavioral disturbance F02.80 ; Bipolar 1 disorder, depressed, partial remission F31.75 and Alzheimer's disease, unspecified G30.9 [facility] [address] [facility] [id number] [address] Mar, Dementia in other diseases classified elsewhere without behavioral disturbance F02.80 ; Alzheimer's disease, unspecified G30.9 and Bipolar 1 disorder, depressed, partial remission F31.75 [facility] [address] [facility] [id number] [address] August, [place] [address] [facility] [id number] [address] Jun, Severe episode of recurrent major depressive disorder, without psychotic features F33.2 IMMUNIZATIONS No Known Immunizations SOCIAL HISTORY Never Assessed REASON FOR VISIT dorene/amanda Chicas RN PLAN OF CARE Activity Details Follow Up 2 Months Reason: VITAL SIGNS Height 63 in 2018-02-01 Weight 98 lbs 2018-02-01 Heart Rate 84 bpm 2018-02-01 BMI 17.36 kg/m2 2018-02-01 Blood pressure systolic 92 mmHg 2018-02-01 Blood pressure diastolic 58 mmHg 2018-02-01 MEDICATIONS Medication Instructions Dosage Frequency Start Date End Date Duration Status 19 - Active Synthroid 50 MCG Orally Once a day 1 tablet on an empty stomach in the morning 24h Active Vol-Care Rx 1 MG Orally Once a day 1 tablet 24h Mar, 30 days Active Valium 5 MG Orally Once a day as needed 1 tab Active Remeron 30 MG Orally Once a day 1 tablet at bedtime 24h Active Ziprasidone HCl 40 mg Orally Twice a day 1 capsule with food 12h Active Questran 4 GM Orally Twice a day PRN 1 packet mixed with water or non-carbonated drink Active Trazodone HCl 100 mg Orally Once a day 1 tablet at bedtime as needed 24h Active [place] 10-325 MG Orally 3 times a day 1 tablet as needed 8h Active Premarin 0.625 MG Orally Daily for Three Weeks, 1 Week off 1 tablet Active Deplin 7.5 7.5-90.314 MG Orally Once a day 1 capsule 24h 1 Oct, 2018 90 days Active Chondroitin Sulfate 400 MG Orally 2 times a day 1 capsule 12h Active Crestor 5 MG Orally Once a day 1 tablet 24h Active Albuterol Sulfate Active Vitamin D3 1000 UNIT Orally Once a day 1 capsule 24h Active RESULTS No Results PROCEDURES Procedure Date Ordered Result Body Site [facility] VISIT ESTABLISHED PATIENT Feb 01, 2018 INSTRUCTIONS MEDICATIONS ADMINISTERED No Known Medications [...]
--- OUTSIDE RECORDS SUMMARY | 2018-11-09 21:07 | XMS REPORT ---
Author Author ANGELITO CRISTOPHER Organization [facility] [place] Address [address] [place] [address] Care Team Providers Care Valet Parking Attendant Name Role Phone HERBERTJACKELYN NESBITTA Unavailable PROBLEMS Type Condition ICD9-CM Code [id number]-UB Code Onset Dates Condition Status SNOMED Code Problem Dementia in other diseases classified elsewhere without behavioral disturbance F02.80 Active 664356135 Problem Alzheimer's disease, unspecified G30.9 Active 150020999 Problem Bipolar 1 disorder, depressed, partial remission F31.75 Active 62259778 Problem Severe episode of recurrent major depressive disorder, without psychotic features F33.2 Active 95662750 ALLERGIES No Information ENCOUNTERS Encounter Location Date Diagnosis [place] [id number] [place] [address] Jan, [facility] [place] [id number] [place] [address] Dec, [place] [id number] [place] [address] Dec, [place] [id number] [place] [address] Nov, Alzheimer's disease, unspecified G30.9 [facility] [place] [id number] [place] [address] Nov, Alzheimer's disease, unspecified G30.9 ; Bipolar 1 disorder, depressed, partial remission F31.75 and Dementia in other diseases classified elsewhere without behavioral disturbance F02.80 [facility] [place] [address] [place] [address] Sep, Alzheimer's disease, unspecified G30.9 ; Bipolar 1 disorder, depressed, partial remission F31.75 and Dementia in other diseases classified elsewhere without behavioral disturbance F02.80 [place] [address], [place] [address] August, Alzheimer's disease, unspecified G30.9 ; Bipolar 1 disorder, depressed, partial remission F31.75 and Dementia in other diseases classified elsewhere without behavioral disturbance F02.80 [place] [address], [place] [address] Jul, [place] [id number] [place] [address] Jun, [place] [id number] [place] [address] Jun, Alzheimer's disease, unspecified G30.9 ; Bipolar 1 disorder, depressed, partial remission F31.75 and Dementia in other diseases classified elsewhere without behavioral disturbance F02.80 [place] [id number] [place] [address] Jun, Bipolar 1 disorder, depressed, partial remission F31.75 ; Alzheimer's disease, unspecified G30.9 and Dementia in other diseases classified elsewhere without behavioral disturbance F02.80 [place] [address], [place] [address] May, Bipolar 1 disorder, depressed, partial remission F31.75 ; Alzheimer's disease, unspecified G30.9 and Dementia in other diseases classified elsewhere without behavioral disturbance F02.80 [place] [address] [place] [address] Mar, Dementia in other diseases classified elsewhere without behavioral disturbance F02.80 [place] [address] [place] [address] Mar, Dementia in other diseases classified elsewhere without behavioral disturbance F02.80 ; Bipolar 1 disorder, depressed, partial remission F31.75 and Alzheimer's disease, unspecified G30.9 [place] [address], [place] [address] Mar, Dementia in other diseases classified elsewhere without behavioral disturbance F02.80 ; Alzheimer's disease, unspecified G30.9 and Bipolar 1 disorder, depressed, partial remission F31.75 [facility] [place] [address] [facility] [id number] [address] August, [facility] [place] [address] [facility] [id number] [address] Jun, Severe episode of recurrent major depressive disorder, without psychotic features F33.2 IMMUNIZATIONS No Known Immunizations SOCIAL HISTORY Never Assessed REASON FOR VISIT paperwork PLAN OF CARE VITAL SIGNS MEDICATIONS Medication Instructions Dosage Frequency Start Date End Date Duration Status Ziprasidone HCl 40 mg Orally Twice a day 1 capsule with food 12h 90 days Active RESULTS No Results PROCEDURES [...]
--- OUTSIDE RECORDS SUMMARY | 2018-11-09 21:07 | XMS REPORT ---
Author Author CRISTOPHER EATON Organization [facility] Address [address] [place] [address] Care Team Providers Care Environmental Protection Inspector Name Role Phone HERBERTLAZ CRISTOPHER Unavailable PROBLEMS Type Condition ICD9-CM Code [id number] Code Onset Dates Condition Status SNOMED Code Problem Dementia in other diseases classified elsewhere without behavioral disturbance F02.80 Active 714614729 Problem Alzheimer's disease, unspecified G30.9 Active 808138955 Problem Bipolar 1 disorder, depressed, partial remission F31.75 Active 88252521 Problem Severe episode of recurrent major depressive disorder, without psychotic features F33.2 Active 51938542 ALLERGIES No Information ENCOUNTERS Encounter Location Date Diagnosis [place] [address] [address] Jan, Alzheimer's disease, unspecified G30.9 ; Dementia in other diseases classified elsewhere without behavioral disturbance F02.80 and Bipolar 1 disorder, depressed, partial remission F31.75 [place] [id number] [place] [address] Dec, [place] [id number] [place] [address] Dec, [place] [id number] [place] [address] Nov, Alzheimer's disease, unspecified G30.9 [place] [address] [address] Nov, Alzheimer's disease, unspecified G30.9 ; Bipolar 1 disorder, depressed, partial remission F31.75 and Dementia in other diseases classified elsewhere without behavioral disturbance F02.80 [place] [id number] [place] [address] Sep, Alzheimer's disease, unspecified G30.9 ; Bipolar 1 disorder, depressed, partial remission F31.75 and Dementia in other diseases classified elsewhere without behavioral disturbance F02.80 [place] [address], [place] [address] August, Alzheimer's disease, unspecified G30.9 ; Bipolar 1 disorder, depressed, partial remission F31.75 and Dementia in other diseases classified elsewhere without behavioral disturbance F02.80 [place] [address], [place] [address] Jul, [place] [id number] [place] [address] Jun, [facility] [id number], [place] [address] Jun, Alzheimer's disease, unspecified G30.9 ; Bipolar 1 disorder, depressed, partial remission F31.75 and Dementia in other diseases classified elsewhere without behavioral disturbance F02.80 [place] [address], [place] [address] Jun, Bipolar 1 disorder, depressed, partial remission F31.75 ; Alzheimer's disease, unspecified G30.9 and Dementia in other diseases classified elsewhere without behavioral disturbance F02.80 [place] [address], [place] [address] May, Bipolar 1 disorder, depressed, partial remission F31.75 ; Alzheimer's disease, unspecified G30.9 and Dementia in other diseases classified elsewhere without behavioral disturbance F02.80 [place] [address], [place] [address] Mar, Dementia in other diseases classified elsewhere without behavioral disturbance F02.80 [facility] [address], [place] [address] Mar, Dementia in other diseases classified elsewhere without behavioral disturbance F02.80 ; Bipolar 1 disorder, depressed, partial remission F31.75 and Alzheimer's disease, unspecified G30.9 [facility] [address] [facility] [id number], [place] [address] Mar, Dementia in other diseases classified elsewhere without behavioral disturbance F02.80 ; Alzheimer's disease, unspecified G30.9 and Bipolar 1 disorder, depressed, partial remission F31.75 [place] [address] [place] [id number] [address] August, [place] [address] [place] [id number] [address] Jun, Severe episode of recurrent major depressive disorder, without psychotic features F33.2 IMMUNIZATIONS No Known Immunizations SOCIAL HISTORY Never Assessed REASON FOR VISIT medication PLAN OF CARE VITAL SIGNS MEDICATIONS No [...]
--- OUTSIDE RECORDS SUMMARY | 2018-11-09 21:08 | XMS REPORT | Continuity of Care Document ---
Author Organization Unknown Address Unknown Allergies Active Description Code Type Severity Reaction Onset Reported/Identified Relationship to Patient Clinical Status Yes No Allergy Information Available [id number] Drug Allergy Unknown N/A 01/25/2018 Yes adhesive tape [id number] Drug Allergy Unknown N/A 11/09/2018 Yes benztropine [id number] Drug Allergy Unknown N/A 11/09/2018 Yes cephalexin [id number] Drug Allergy Unknown N/A 11/09/2018 Yes gabapentin [id number] Drug Allergy Unknown N/A 11/09/2018 Yes latex [id number] Drug Allergy Unknown N/A 11/09/2018 Yes medroxyprogesterone [id number] Drug Allergy Unknown N/A 11/09/2018 Yes nickel [id number] Drug Allergy Unknown N/A 11/09/2018 Yes nitrofurantoin [id number] Drug Allergy Unknown N/A 11/09/2018 Yes Sulfa (Sulfonamide Antibiotics) [id number] Drug Allergy Unknown N/A 11/09/2018 Yes tramadol [id number] Drug Allergy Unknown N/A 11/09/2018 Medications There is no data. Problems Date Dx Coded Attending Type Code Diagnosis Diagnosed By 01/26/2018 CORIN SULLIVAN DO Ot D72.829 ELEVATED WHITE BLOOD CELL COUNT, UNSPECI 01/26/2018 CORIN SULLIVAN DO Ot F03.90 UNSPECIFIED DEMENTIA WITHOUT BEHAVIORAL 01/26/2018 CORIN SULLIVAN DO Ot F10.129 ALCOHOL ABUSE WITH INTOXICATION, UNSPECI 01/26/2018 CORIN SULLIVAN DO Ot F17.210 NICOTINE DEPENDENCE, CIGARETTES, UNCOMPL 01/26/2018 CORIN SULLIVAN DO Ot J44.1 CHRONIC OBSTRUCTIVE PULMONARY DISEASE W 01/26/2018 CORIN SULLIVAN DO Ot J96.00 ACUTE RESPIRATORY FAILURE, UNSP W HYPOXI 01/26/2018 CORIN SULLIVAN DO Ot D72.829 ELEVATED WHITE BLOOD CELL COUNT, UNSPECI 01/26/2018 SULLIVAN DO, CORIN Ot F03.90 UNSPECIFIED DEMENTIA WITHOUT BEHAVIORAL 01/26/2018 SULLIVAN DO, CORIN Ot F10.129 ALCOHOL ABUSE WITH INTOXICATION, UNSPECI 01/26/2018 SULLIVAN DO, CORIN Ot F17.210 NICOTINE DEPENDENCE, CIGARETTES, UNCOMPL 01/26/2018 SULLIVAN DO CORIN Ot F32.9 MAJOR DEPRESSIVE DISORDER, SINGLE EPISOD 01/26/2018 SULLIVAN DO, CORIN Ot F41.9 ANXIETY DISORDER, UNSPECIFIED 01/26/2018 SULLIVAN DO, CORIN Ot J43.9 EMPHYSEMA, UNSPECIFIED 01/26/2018 SULLIVAN DO, CORIN Ot J44.1 CHRONIC OBSTRUCTIVE PULMONARY DISEASE W 01/26/2018 SULLIVAN DO, CORIN Ot J96.00 ACUTE RESPIRATORY FAILURE, UNSP W HYPOXI 02/20/2018 RONNY TITUS MEDICAL MASSAGE THERAPIST Ot F17.200 NICOTINE DEPENDENCE, UNSPECIFIED, UNCOMP 02/20/2018 SOFY TITUSINE Jose Guadalupe MEDICAL MASSAGE THERAPIST Ot J44.9 CHRONIC OBSTRUCTIVE PULMONARY DISEASE, U 02/20/2018 SOFY TITSUINE Jose Guadalupe MEDICAL MASSAGE THERAPIST Ot R91.1 SOLITARY PULMONARY NODULE 03/12/2018 SOFY TITUSINE Jose Guadalupe MEDICAL MASSAGE THERAPIST Ot F17.200 NICOTINE DEPENDENCE, UNSPECIFIED, UNCOMP 03/12/2018 SOFY TITUSINE E MEDICAL MASSAGE THERAPIST Ot J44.9 CHRONIC OBSTRUCTIVE PULMONARY DISEASE, U 03/12/2018 SOFY TITUSINE E MEDICAL MASSAGE THERAPIST Ot R91.1 SOLITARY PULMONARY NODULE 04/09/2018 SOFY TITUSINE Jose Guadalupe MEDICAL MASSAGE THERAPIST Ot F17.200 NICOTINE DEPENDENCE, UNSPECIFIED, UNCOMP 04/09/2018 RONNY TITUS MEDICAL MASSAGE THERAPIST Ot J44.9 CHRONIC OBSTRUCTIVE PULMONARY DISEASE, U 04/09/2018 SOFY TITUSINE E MEDICAL MASSAGE THERAPIST Ot R91.1 SOLITARY PULMONARY NODULE 06/05/2018 SOFY TITUSINE Jose Guadalupe MEDICAL MASSAGE THERAPIST Ot F17.200 NICOTINE DEPENDENCE, UNSPECIFIED, UNCOMP 06/05/2018 SOFY TITUSINE Jose Guadalupe MEDICAL MASSAGE THERAPIST Ot J44.9 CHRONIC OBSTRUCTIVE PULMONARY DISEASE, U 06/05/2018 SOFY TITUSINE E MEDICAL MASSAGE THERAPIST Ot R91.1 SOLITARY PULMONARY NODULE 06/05/2018 SOFY TITUSINE Jose Guadalupe MEDICAL MASSAGE THERAPIST Ot F17.200 NICOTINE DEPENDENCE, UNSPECIFIED, UNCOMP 06/05/2018 SOFY TITUSSERGIO Shi MEDICAL MASSAGE THERAPIST Ot J44.9 CHRONIC OBSTRUCTIVE PULMONARY DISEASE, U 06/05/2018 RONNY TITUS MEDICAL MASSAGE THERAPIST Ot R91.1 SOLITARY PULMONARY NODULE 06/05/2018 RONNY TITUS MEDICAL MASSAGE THERAPIST Ot F17.200 NICOTINE DEPENDENCE, UNSPECIFIED, UNCOMP 06/05/2018 RONNY TITUS MEDICAL MASSAGE THERAPIST Ot J44.9 CHRONIC OBSTRUCTIVE PULMONARY DISEASE, U 06/05/2018 RONNY TITUS MEDICAL MASSAGE THERAPIST Ot R91.1 SOLITARY PULMONARY NODULE 11/09/2018 RONNY TITUS MEDICAL MASSAGE THERAPIST Ot F17.200 NICOTINE DEPENDENCE, UNSPECIFIED, UNCOMP 11/09/2018 RONNY TITUS APRN Ot J44.9 CHRONIC OBSTRUCTIVE PULMONARY DISEASE, U 11/09/2018 RONNY TITUS MEDICAL MASSAGE THERAPIST Ot R91.1 SOLITARY PULMONARY NODULE Procedures Code Description Performed By Performed On [id number] RESPIRATORY VENTILATION, LESS THAN 24 CO 01/25/2018 Results Test Result Range Methicillin resistant Staphylococcus aureus (MRSA) screening culture - 01/25/18 18:53 Methicillin resistant Staphylococcus aureus (MRSA) screening culture NEG NRG Sputum Gram stain - 01/25/18 19:00 Sputum Gram stain REPORTED 01-26-2018, 1705. NRG Bacterial sputum culture - 01/25/18 19:00 FREE TEXT EXTERNAL FINAL REPORT 08:05 NRG QUANTITY OF GROWTH . NRG Bacterial sputum culture USUAL RESP NRG Arterial blood gas measurement - 01/25/18 19:20 Blood pCO2 36 mm[Hg] 35-45 Blood pO2 132 mm[Hg] 79-93 Arterial blood bicarbonate measurement (moles/volume) 23 mmol/L 23-27 Arterial blood base excess by calculation -1.7 mmol/L -2.5-2.5 Arterial blood oxygen saturation measurement 99 % 94-100 * Inhaled oxygen flow rate 50% NRG Arterial blood pH measurement with patient temperature correction 7.41 7.37-7.43 Arterial blood carbon dioxide, total measurement (moles/volume) 23.7 mmol/L 21.0-31.0 Body site LT RAD NRG Assessment of wrist artery patency prior to arterial puncture YES-POS NRG Setting of ventilation mode YES NRG Measurement of body temperature 96.6 NRG Complete blood count (CBC) with automated white blood cell (WBC) differential - 01/25/18 19:20 Blood leukocytes automated count (number/volume) 7.0 10*3/uL 4.3-11.0 Blood erythrocytes automated count (number/volume) 3.08 10*6/uL 4.35-5.85 Venous blood hemoglobin measurement (mass/volume) 10.5 g/dL 11.5-16.0 Blood hematocrit (volume fraction) 30 % 35-52 Automated erythrocyte mean corpuscular volume 98 [foz_us] 80-99 Automated erythrocyte mean corpuscular hemoglobin (mass per erythrocyte) 34 pg 25-34 Automated erythrocyte mean corpuscular hemoglobin concentration measurement (mass/volume) 35 g/dL 32-36 Automated erythrocyte distribution width ratio 11.5 % 10.0- 14.5 Automated blood platelet count (count/volume) 161 10*3/uL 130-400 Automated blood platelet mean volume measurement 10.1 [foz_us] 7.4-10.4 Automated blood neutrophils/100 leukocytes 66 % 42-75 Automated blood lymphocytes/100 leukocytes 31 % 12-44 Blood monocytes/100 leukocytes 3 % 0-12 Automated blood eosinophils/100 leukocytes 0 % 0-10 Automated blood basophils/100 leukocytes 0 % 0-10 Blood neutrophils automated count (number/volume) 4.6 10*3 1.8-7.8 Blood lymphocytes automated count (number/volume) 2.2 10*3 1.0-4.0 Blood monocytes automated count (number/volume) 0.2 10*3 0.0- 1.0 Automated eosinophil count 0.0 10*3/uL 0.0-0.3 Automated blood basophil count (count/volume) 0.0 10*3/uL 0.0-0.1 Blood lactic acid measurement (moles/volume) - 01/25/18 19:20 Blood lactic acid measurement (moles/volume) 1.86 mmol/L 0.50- 2.00 Comprehensive metabolic panel - 01/25/18 19:20 Serum or plasma sodium measurement (moles/volume) 144 mmol/L 135-145 Serum or plasma potassium measurement (moles/volume) 2.9 mmol/L 3.6-5.0 Serum or plasma chloride measurement (moles/volume) 124 mmol/L 98-107 Carbon dioxide 13 mmol/L 21-32 Serum or plasma anion gap determination (moles/volume) 7 mmol/L 5-14 Serum or plasma urea nitrogen measurement (mass/volume) 14 mg/dL 7-18 Serum or plasma creatinine measurement (mass/volume) 0.64 mg/dL 0.60-1.30 Serum or plasma urea nitrogen/creatinine mass ratio 22 NRG Serum or plasma creatinine measurement with calculation of estimated glomerular filtration rate > NRG Serum or plasma glucose measurement (mass/volume) 84 mg/dL 70-105 Serum or plasma calcium measurement (mass/volume) 6.6 mg/dL 8.5-10.1 Serum or plasma total bilirubin measurement (mass/volume) 0.2 mg/dL 0.1-1.0 Serum or plasma alkaline phosphatase measurement (enzymatic activity/volume) 38 U/L 40-136 Serum or plasma aspartate aminotransferase measurement (enzymatic activity/volume) 17 U/L 5-34 Serum or plasma alanine aminotransferase measurement (enzymatic activity/volume) 12 U/L 0-55 Serum or plasma protein measurement (mass/volume) 4.0 g/dL 6.4-8.2 Serum or plasma albumin measurement (mass/volume) 2.5 g/dL 3.2-4.5 CALCIUM CORRECTED 7.8 mg/dL 8.5-10.1 Serum or plasma triglyceride measurement (mass/volume) - 01/25/18 19:20 Serum or plasma triglyceride measurement (mass/volume) 86 mg/dL <150 Serum or plasma ethanol measurement (mass/volume) - 01/25/18 19:20 Serum or plasma ethanol measurement (mass/volume) 218 mg/dL <10 Serum or plasma triglyceride measurement (mass/volume) - 01/25/18 19:20 Serum or plasma triglyceride measurement (mass/volume) 87 mg/dL <150 Magnesium - 01/25/18 19:20 Magnesium 1.7 mg/dL 1.8-2.4 THYROID STIMULATING HORMONE - 01/25/18 19:20 THYROID STIMULATING HORMONE 0.65 u[iU]/mL 0.35-4.94 Serum or plasma thyroxine (T4) free measurement (mass/volume) - 01/25/18 19:20 Serum or plasma thyroxine (T4) free measurement (mass/volume) 1.14 ng/dL 0.70-1.48 Serum or plasma cortisol measurement (mass/volume) - 01/25/18 19:20 Cortisol PM 10.5 % 2.9-17.3 Capillary blood glucose measurement by glucometer (mass/volume) - 01/26/18 00:11 Capillary blood glucose measurement by glucometer (mass/volume) 87 mg/dL 70-110 Complete blood count (CBC) with automated white blood cell (WBC) differential - 01/26/18 03:02 Blood leukocytes automated count (number/volume) 17.7 10*3/uL 4.3-11.0 Blood erythrocytes automated count (number/volume) 4.10 10*6/uL 4.35-5.85 Venous blood hemoglobin measurement (mass/volume) 13.6 g/dL 11.5-16.0 Blood hematocrit (volume fraction) 40 % 35-52 Automated erythrocyte mean corpuscular volume 97 [foz_us] 80-99 Automated erythrocyte mean corpuscular hemoglobin (mass per erythrocyte) 33 pg 25-34 Automated erythrocyte mean corpuscular hemoglobin concentration measurement (mass/volume) 34 g/dL 32-36 Automated erythrocyte distribution width ratio 11.7 % 10.0- 14.5 Automated blood platelet count (count/volume) 206 10*3/uL 130-400 Automated blood platelet mean volume measurement 10.2 [foz_us] 7.4-10.4 Automated blood neutrophils/100 leukocytes 85 % 42-75 Automated blood lymphocytes/100 leukocytes 10 % 12-44 Blood monocytes/100 leukocytes 5 % 0-12 Automated blood eosinophils/100 leukocytes 0 % 0-10 Automated blood basophils/100 leukocytes 0 % 0-10 Blood neutrophils automated count (number/volume) 15.0 10*3 1.8-7.8 Blood lymphocytes automated count (number/volume) 1.8 10*3 1.0-4.0 Blood monocytes automated count (number/volume) 0.9 10*3 0.0- 1.0 Automated eosinophil count 0.0 10*3/uL 0.0-0.3 Automated blood basophil count (count/volume) 0.0 10*3/uL 0.0-0.1 Comprehensive metabolic panel - 01/26/18 03:02 Serum or plasma sodium measurement (moles/volume) 144 mmol/L 135-145 Serum or plasma potassium measurement (moles/volume) 4.1 mmol/L 3.6-5.0 Serum or plasma chloride measurement (moles/volume) 115 mmol/L 98-107 Carbon dioxide 20 mmol/L 21-32 Serum or plasma anion gap determination (moles/volume) 9 mmol/L 5-14 Serum or plasma urea nitrogen measurement (mass/volume) 12 mg/dL 7-18 Serum or plasma creatinine measurement (mass/volume) 0.77 mg/dL 0.60-1.30 Serum or plasma urea nitrogen/creatinine mass ratio 16 NRG Serum or plasma creatinine measurement with calculation of estimated glomerular filtration rate > NRG Serum or plasma glucose measurement (mass/volume) 97 mg/dL 70-105 Serum or plasma calcium measurement (mass/volume) 8.3 mg/dL 8.5-10.1 Serum or plasma total bilirubin measurement (mass/volume) 0.4 mg/dL 0.1-1.0 Serum or plasma alkaline phosphatase measurement (enzymatic activity/volume) 58 U/L 40-136 Serum or plasma aspartate aminotransferase measurement (enzymatic activity/volume) 43 U/L 5-34 Serum or plasma alanine aminotransferase measurement (enzymatic activity/volume) 32 U/L 0-55 Serum or plasma protein measurement (mass/volume) 6.1 g/dL 6.4-8.2 Serum or plasma albumin measurement (mass/volume) 3.8 g/dL 3.2-4.5 CALCIUM CORRECTED 8.5 mg/dL 8.5-10.1 Serum or plasma phosphate measurement (mass/volume) - 01/26/18 03:02 Serum or plasma phosphate measurement (mass/volume) 2.1 mg/dL 2.3-4.7 Magnesium - 01/26/18 03:02 Magnesium 1.9 mg/dL 1.8-2.4 Serum or plasma ethanol measurement (mass/volume) - 01/26/18 03:02 Serum or plasma ethanol measurement (mass/volume) 80 mg/dL <10 Blood manual differential performed detection - 01/26/18 03:02 Blood monocytes/100 leukocytes 2 % NRG Manual blood segmented neutrophils/100 leukocytes 84 % NRG Blood band neutrophils/100 leukocytes 1 % NRG Manual blood lymphocytes/100 leukocytes 13 % NRG Manual eosinophils/100 leukocytes in nose 0 % NRG Manual blood basophils/100 leukocytes 0 % NRG Blood toxic granules detection by light microscopy 1+ NRG Arterial blood gas measurement - 01/26/18 03:45 Blood pCO2 44 mm[Hg] 35-45 Blood pO2 148 mm[Hg] 79-93 Arterial blood bicarbonate measurement (moles/volume) 22 mmol/L 23-27 Arterial blood base excess by calculation -3.4 mmol/L -2.5-2.5 Arterial blood oxygen saturation measurement 99 % 94-100 * Inhaled oxygen flow rate 40% NRG Arterial blood pH measurement with patient temperature correction 7.32 7.37-7.43 Arterial blood carbon dioxide, total measurement (moles/volume) 23.2 mmol/L 21.0-31.0 Body site L RAD NRG Assessment of wrist artery patency prior to arterial puncture YES-POS NRG Setting of ventilation mode YES NRG Measurement of body temperature 98.4 NRG Arterial blood gas measurement - 01/26/18 08:20 Blood pCO2 39 mm[Hg] 35-45 Blood pO2 86 mm[Hg] 79-93 Arterial blood bicarbonate measurement (moles/volume) 21 mmol/L 23-27 Arterial blood base excess by calculation -3.2 mmol/L -2.5-2.5 Arterial blood oxygen saturation measurement 97 % 94-100 * Inhaled oxygen flow rate 1 L 25% NRG Arterial blood pH measurement with patient temperature correction 7.36 7.37-7.43 Arterial blood carbon dioxide, total measurement (moles/volume) 22.5 mmol/L 21.0-31.0 Body site LEFT RADIAL NRG Assessment of wrist artery patency prior to arterial puncture POSITIVE NRG Setting of ventilation mode YES NRG Measurement of body temperature 99.2 NRG C DIFFICILE AG + TOXIN A/B. - 01/26/18 09:53 RESULTS NEGATIVE FOR ANTIGEN AND TOXIN A/B NRG CULTURE, URINE - 08/22/18 16:57 CULTURE, URINE, ROUTINE SEE NOTE NRG Complete blood count (CBC) with automated white blood cell (WBC) differential - 11/09/18 12:25 Blood leukocytes automated count (number/volume) 9.1 10*3/uL 4.3-11.0 Blood erythrocytes automated count (number/volume) 4.08 10*6/uL 4.35-5.85 Venous blood hemoglobin measurement (mass/volume) 13.4 g/dL 11.5-16.0 Blood hematocrit (volume fraction) 41 % 35-52 Automated erythrocyte mean corpuscular volume 101 [foz_us] 80-99 Automated erythrocyte mean corpuscular hemoglobin (mass per erythrocyte) 33 pg 25-34 Automated erythrocyte mean corpuscular hemoglobin concentration measurement (mass/volume) 33 g/dL 32-36 Automated erythrocyte distribution width ratio 13.1 % 10.0- 14.5 Automated blood platelet count (count/volume) 273 10*3/uL 130-400 Automated blood platelet mean volume measurement 9.5 [foz_us] 7.4-10.4 Automated blood neutrophils/100 leukocytes 71 % 42-75 Automated blood lymphocytes/100 leukocytes 22 % 12-44 Blood monocytes/100 leukocytes 7 % 0-12 Automated blood eosinophils/100 leukocytes 0 % 0-10 Automated blood basophils/100 leukocytes 1 % 0-10 Blood neutrophils automated count (number/volume) 6.4 10*3 1.8-7.8 Blood lymphocytes automated count (number/volume) 2.0 10*3 1.0-4.0 Blood monocytes automated count (number/volume) 0.6 10*3 0.0- 1.0 Automated eosinophil count 0.0 10*3/uL 0.0-0.3 Automated blood basophil count (count/volume) 0.1 10*3/uL 0.0-0.1 Complete urinalysis with reflex to culture - 11/09/18 12:25 Urine color determination YELLOW NRG Urine clarity determination SLT CLOUDY NRG Urine pH measurement by test strip 6.0 5-9 Specific gravity of urine by test strip >= 1.016-1.022 Urine protein assay by test strip, semi-quantitative 2+ NEGATIVE Urine glucose detection by automated test strip NEGATIVE NEGATIVE Erythrocytes detection in urine sediment by light microscopy 1+ NEGATIVE Urine ketones detection by automated test strip NEGATIVE NEGATIVE Urine nitrite detection by test strip NEGATIVE NEGATIVE Urine total bilirubin detection by test strip NEGATIVE NEGATIVE Urine urobilinogen measurement by automated test strip (mass/volume) 0.2 mg/dL NORMAL Urine leukocyte esterase detection by dipstick NEGATIVE NEGATIVE Automated urine sediment erythrocyte count by microscopy (number/high power field) [HPF] NRG Automated urine sediment leukocyte count by microscopy (number/high power field) NONE NRG Bacteria detection in urine sediment by light microscopy FEW NRG Squamous epithelial cells detection in urine sediment by light microscopy 25-50 NRG Crystals detection in urine sediment by light microscopy NONE NRG Casts detection in urine sediment by light microscopy NONE NRG Mucus detection in urine sediment by light microscopy SMALL NRG Complete urinalysis with reflex to culture NO NRG Comprehensive metabolic panel - 11/09/18 12:25 Serum or plasma sodium measurement (moles/volume) 137 mmol/L 135-145 Serum or plasma potassium measurement (moles/volume) 4.6 mmol/L 3.6-5.0 Serum or plasma chloride measurement (moles/volume) 100 mmol/L 98-107 Carbon dioxide 24 mmol/L 21-32 Serum or plasma anion gap determination (moles/volume) 13 mmol/L 5-14 Serum or plasma urea nitrogen measurement (mass/volume) 18 mg/dL 7-18 Serum or plasma creatinine measurement (mass/volume) 1.07 mg/dL 0.60-1.30 Serum or plasma urea nitrogen/creatinine mass ratio 17 NRG Serum or plasma creatinine measurement with calculation of estimated glomerular filtration rate 51 NRG Serum or plasma glucose measurement (mass/volume) 109 mg/dL 70-105 Serum or plasma calcium measurement (mass/volume) 9.9 mg/dL 8.5-10.1 Serum or plasma total bilirubin measurement (mass/volume) 0.6 mg/dL 0.1-1.0 Serum or plasma alkaline phosphatase measurement (enzymatic activity/volume) 64 U/L 40-136 Serum or plasma aspartate aminotransferase measurement (enzymatic activity/volume) 21 U/L 5-34 Serum or plasma alanine aminotransferase measurement (enzymatic activity/volume) 20 U/L 0-55 Serum or plasma protein measurement (mass/volume) 7.0 g/dL 6.4-8.2 Serum or plasma albumin measurement (mass/volume) 4.3 g/dL 3.2-4.5 CALCIUM CORRECTED 9.7 mg/dL 8.5-10.1 Encounters ACCT No. Visit Date/Time Discharge Status Pt. Type Provider Facility Loc./Unit Complaint [id number] 10/10/2018 11:00:00 10/10/2018 23:59:59 CLS Outpatient [facility] [id number] 08/22/2018 16:20:00 Document Registration [id number] 11/09/2018 12:14:00 11/09/2018 13:49:00 DIS Emergency NABILA MARR MD [facility] ER FS VOMITING/FALL [id number] 03/05/2018 16:23:00 03/05/2018 23:59:59 CLS Preadmit RONNY TITUS APRN [facility] RAD LUNG MASS [id number] 02/16/2018 12:15:00 02/16/2018 23:59:59 CLS Outpatient RONNY TITUS APRN [facility] RAD COPD [id number] 01/25/2018 18:25:00 01/26/2018 12:00:00 DIS Inpatient CORIN SULLIVAN DO [facility] ICU RESP FAILURE
== END 2018-11-09 13:49 | disposition home or self-care (01) ==
LOC: EDUNIT# 12:12 → ER FS 12:14
DX: R55 Syncope and collapse (principal); J43.9 Emphysema, unspecified; F03.90 Unspecified dementia, unspecified severity, without behavioral disturbance, psychotic disturbance, mood disturbance, and anxiety; K58.9 Irritable bowel syndrome, unspecified; E03.9 Hypothyroidism, unspecified; F31.9 Bipolar disorder, unspecified; F90.9 Attention-deficit hyperactivity disorder, unspecified type; F41.9 Anxiety disorder, unspecified; F12.10 Cannabis abuse, uncomplicated; Z90.710 Acquired absence of both cervix and uterus; Z88.2 Allergy status to sulfonamides; Z88.1 Allergy status to other antibiotic agents; Z91.040 Latex allergy status; Z88.8 Allergy status to other drugs, medicaments and biological substances; Z88.5 Allergy status to narcotic agent; Z82.49 Family history of ischemic heart disease and other diseases of the circulatory system
CPT/HCPCS: 36415; 80053; 81000; 85025; 93005

== ENCOUNTER → 2019-01-17 | Outpatient (CLI) | payer MEDICARE, OTHER ==
[~2019-01-17] MED LIST changes: -ROSU5TAB12 PO; +ROSU5TAB13 PO
--- NOTE | 2019-01-17 14:08 | Diagnostic Imaging Report ---
PROCEDURE: CT chest without contrast. TECHNIQUE: Multiple contiguous axial images were obtained through the chest without the use of intravenous contrast. Auto Exposure Controls were utilized during the CT exam to meet ALARA standards for radiation dose reduction. INDICATION: Lung mass. COMPARISON: February 16, 2018. FINDINGS: No significant adenopathy within the chest. No aneurysmal dilatation of the thoracic aorta. Mild vascular calcifications. The heart is within normal limits in size. No significant pericardial effusion. No pleural effusion. Mural thickening of the mid to distal esophagus is identified. No pneumothorax. Mild background emphysematous changes. 0.3 cm groundglass pulmonary nodule within the left upper lobe, series 3, image 52, is stable. 0.5 cm solid lingular pulmonary nodule is again identified and stable from the prior examination. Minimal tree in bud nodularity is noted within the posterior aspect of the right upper lobe, stable from the prior examination. These nodules as well measure below 4 mm. Stable minimal tree in bud nodularity within the peripheral right upper lobe. No new pulmonary nodule. Cholecystectomy. Right-sided hydronephrosis is partially visualized and suggested. The common bile duct measures up to 0.9 cm, which is within normal limits given postcholecystectomy status. Scattered osseous degenerative changes without acute osseous abnormality. IMPRESSION: Bilateral sub-6 mm pulmonary nodules are stable from the prior examination from January 2018. These remain indeterminant. However, the persistent tree in bud nodularity within the peripheral right lung may relate to an underlying infectious or inflammatory etiology. Given stability of these pulmonary nodules, a followup CT of the chest is recommended in one year to ensure stability. Mild background chronic obstructive pulmonary disease. Right-sided hydronephrosis is suggested and partially visualized. Recommend renal ultrasound for further evaluation. Dictated by: Dictated on workstation # [id number]
== END ==
LOC: RAD 13:12
PROVIDERS: ATTEND Nurse Practitioner Family
DX: J44.9 Chronic obstructive pulmonary disease, unspecified (principal); R91.8 Other nonspecific abnormal finding of lung field
CPT/HCPCS: 71250

== ENCOUNTER 2019-09-01 19:11 | Emergency (ER) | payer MEDICARE, OTHER ==
[~2019-09-01] VITALS: Ht 160 cm; Wt 54.4 kg
[~2019-09-01 19:11] MED LIST changes: +ACHYD1T PO; -DIAZ5TAB3 PO; +DIAZ5TAB49 PO; -HYDR-3820 PO; -TRAZ-222 PO; +TRZ50T PO; +ZIPR40CA23 PO; -ZIPR40CA26 PO
--- NOTE | 2019-09-01 19:15 | ED General ---
General Stated Complaint: WEAKNESS Source of Information: Patient History of Present Illness Date Seen by Provider: September 01, 2019 Time Seen by Provider: 19:15 Initial Comments Patient is a 68-year-old female who comes to the emergency department today for evaluation after a fall. Patient states she tripped and had mechanical fall inside her sister's house where she is visiting. She cannot be more specific however about the incident. She does not have loss of consciousness, neck pain. On arrival to ER, she has no complaints. In route to the ER, EMS did check blood sugar and noted it to be 57. The patient does not have history of diabetes but she does state she has not eaten today. She was preparing tea dinner just prior to the fall. EMS reports finding the patient on the couch and in no distress. No chest pain or shortness of breath. No palpitations. No abdominal pain. No vision changes, headaches, neck pain, nausea or vomiting. Allergies and Home Medications Allergies Coded Allergies: Sulfa (Sulfonamide Antibiotics) (Verified Allergy, Unknown, 11/09/18) adhesive tape (Verified Allergy, Unknown, 11/09/18) benztropine (Verified Allergy, Unknown, 11/09/18) cephalexin (Verified Allergy, Unknown, 11/09/18) gabapentin (Verified Allergy, Unknown, 11/09/18) latex (Verified Allergy, Unknown, 11/09/18) medroxyprogesterone (Verified Allergy, Unknown, 11/09/18) nickel (Verified Allergy, Unknown, 11/09/18) nitrofurantoin (Verified Allergy, Unknown, 11/09/18) tramadol (Verified Allergy, Unknown, 11/09/18) Home Medications Cholestyramine (with Sugar) 4 Gm Powd.pack, 4 GM PO BID PRN for DIARRHEA, (Reported) Clobetasol Propionate 15 Gm Gel..gram., TP UD PRN for SKIN SORE, (Reported) Diazepam 5 Mg Tablet, 5 MG PO Q6H PRN for ANXIETY, (Reported) Estrogens, Conjugated 0.625 Mg Tablet, 0.625 MG PO DAILY, (Reported) Hydrocodone Bit/Acetaminophen 1 Each Tablet, 1 TAB PO TID PRN for PAIN-MODERATE, (Reported) Levothyroxine Sodium 50 Mcg Tablet, 50 MCG PO DAILY, (Reported) Mirtazapine 30 Mg Tablet, 30 MG PO HS, (Reported) Prednisone 10 Mg Tab.ds.pk, 20 MG PO DAILY Prescribed by: CORIN SULLIVAN on 01/26/18 1121 Rosuvastatin Calcium 5 Mg Tablet, 5 MG PO DAILY, (Reported) Trazodone HCl 50 Mg Tablet, 50 MG PO HS, (Reported) Ziprasidone HCl 40 Mg Capsule, 40 MG PO BID, (Reported) Patient Home Medication List Home Medication List Reviewed: Yes Review of Systems Review of Systems Constitutional: no symptoms reported EENTM: no symptoms reported Respiratory: no symptoms reported Cardiovascular: no symptoms reported Gastrointestinal: no symptoms reported Musculoskeletal: no symptoms reported Skin: no symptoms reported Psychiatric/Neurological: No Symptoms Reported All Other Systems Reviewed Negative Unless Noted: Yes Past Bmesmnc-Ovzbsr-Tamyao Hx Patient Social History Drug of Choice: Marijuana Type Used: Cigarettes 2nd Hand Smoke Exposure: No Recent Foreign Travel: No Contact w/Someone Who Travel: No Recent Hopitalizations: No Seasonal Allergies Seasonal Allergies: No Past Medical History Surgeries: Yes Gallbladder, Hysterectomy Respiratory: Yes Emphysema Cardiac: No Neurological: Yes (narcolepsy) Dementia Genitourinary: No Gastrointestinal: Yes Irritable Bowel Musculoskeletal: No Endocrine: Yes Hypothyroidsim HEENT: No Cancer: No Psychosocial: Yes ADD/ADHD, Anxiety, Bipolar, Depression Integumentary: No Family Medical History Hypertension Physical Exam Vital Signs Vital Signs - First Documented 09/01/19 09/01/19 19:18 20:34 Temp 36.0 Pulse 76 Resp 17 B/P (MAP) 121/66 (84) Pulse Ox 97 O2 Delivery Room Air Capillary Refill : Height, Weight, BMI Height: 5'3.00" Weight: 115lbs. 0.0oz. 52.543166xm; 17.4 BMI Method:Stated General Appearance: No Apparent Distress, WD/WN HEENT: PERRL/EOMI, TMs Normal, Normal ENT Inspection Neck: Full Range of Motion, Normal Inspection Respiratory: Chest Non Tender, Lungs Clear, Normal Breath Sounds Cardiovascular: Regular Rate, Rhythm, No Edema, No Murmur Gastrointestinal: Normal Bowel Sounds, Non Tender, Soft Back: Normal Inspection, No CVA Tenderness, No Vertebral Tenderness Extremity: Normal Capillary Refill, Normal Range of Motion, Non Tender Neurologic/Psychiatric: Alert, Oriented x3, No Motor/Sensory Deficits, Normal Mood/Affect, senior storage engineer II-XII Norm as Tested Skin: Normal Color, Warm/Dry Procedures/Interventions Date of ETT Placement: Jan 25, 2018 Progress/Results/Core Measures Suspected Sepsis SIRS Temperature: Pulse: Respiratory Rate: Laboratory Tests 09/01/19 19:24: White Blood Count 12.1H Blood Pressure / Mean: Laboratory Tests 09/01/19 19:24: Creatinine 0.90, Platelet Count 290 Results/Orders Lab Results Laboratory Tests Test 09/01/19 19:20 09/01/19 19:24 09/01/19 20:11 Range/Units Glucometer 97 70-110 MG/DL White Blood Count 12.1 H 4.3-11.0 10^3/uL Red Blood Count 4.11 L 4.35-5.85 10^6/uL Hemoglobin 12.8 11.5-16.0 G/DL Hematocrit 40 35-52 % Mean Corpuscular Volume 97 80-99 FL Mean Corpuscular Hemoglobin 31 25-34 PG Mean Corpuscular Hemoglobin Concent 32 32-36 G/DL Red Cell Distribution Width 12.7 10.0-14.5 % Platelet Count 290 130-400 10^3/uL Mean Platelet Volume 8.7 7.4-10.4 FL Neutrophils (%) (Auto) 54 42-75 % Lymphocytes (%) (Auto) 37 12-44 % Monocytes (%) (Auto) 9 0-12 % Eosinophils (%) (Auto) 0 0-10 % Basophils (%) (Auto) 0 0-10 % Neutrophils # (Auto) 6.5 1.8-7.8 X 10^3 Lymphocytes # (Auto) 4.5 H 1.0-4.0 X 10^3 Monocytes # (Auto) 1.0 0.0-1.0 X 10^3 Eosinophils # (Auto) 0.0 0.0-0.3 10^3/uL Basophils # (Auto) 0.0 0.0-0.1 10^3/uL Sodium Level 138 135-145 MMOL/L Potassium Level 3.5 L 3.6-5.0 MMOL/L Chloride Level 103 98-107 MMOL/L Carbon Dioxide Level 22 21-32 MMOL/L Anion Gap 13 5-14 MMOL/L Blood Urea Nitrogen 9 7-18 MG/DL Creatinine 0.90 0.60-1.30 MG/DL Estimat Glomerular Filtration Rate > 60 BUN/Creatinine Ratio 10 Glucose Level 76 70-105 MG/DL Calcium Level 9.5 8.5-10.1 MG/DL Troponin I < 0.30 <0.30 NG/ML Urine Color YELLOW Urine Clarity CLEAR Urine pH 6.0 5-9 Urine Specific Linn <=1.005 1.016-1.022 Urine Protein NEGATIVE NEGATIVE Urine Glucose (UA) NEGATIVE NEGATIVE Urine Ketones NEGATIVE NEGATIVE Urine Nitrite NEGATIVE NEGATIVE Urine Bilirubin NEGATIVE NEGATIVE Urine Urobilinogen 0.2 < = 1.0 MG/DL Urine Leukocyte Esterase NEGATIVE NEGATIVE Urine RBC (Auto) 1+ H NEGATIVE Urine RBC 0-2 /HPF Urine WBC 2-5 /HPF Urine Squamous Epithelial Cells 5-10 /HPF Urine Crystals NONE /LPF Urine Bacteria FEW H /HPF Urine Casts NONE /LPF Urine Mucus NEGATIVE /LPF Urine Culture Indicated YES My Orders Orders - ANGELES MASTERS DO Ed Iv/Invasive Line Start (09/01/19 19:21) Ekg Tracing (09/01/19 19:21) Basic Metabolic Panel (09/01/19 19:21) Troponin I Fs (09/01/19 19:21) Cbc With Automated Diff (09/01/19 19:21) Ns Iv 1000 Ml (Sodium Chloride 0.9%) (09/01/19 19:30) Ct Head/Cervical Spine Wo (09/01/19 19:22) Urinalysis (09/01/19 20:09) Urine Culture (09/01/19 20:11) Vital Signs/I&O 09/01/19 09/01/19 19:18 20:34 Temp 36.0 Pulse 76 67 Resp 17 18 B/P (MAP) 121/66 (84) 111/68 Pulse Ox 97 O2 Delivery Room Air Room Air Capillary Refill : Progress Note : Time: 20:16 Progress Note ED summary: Patient is evaluated in the emergency department for evaluation after a fall. Patient has a atraumatic examination. No neck tenderness. She does not have good recollection however of the incident but she does deny complaints on arrival to the ER. EKG is completed and is negative. CT head and neck were completed and also negative. The rest of her workup was unremarkable. She was gi roxann 1 L of normal saline. Patient had a normal neurologic exam. 5 over 5 motor strength globally. Cranial nerves II through XII intact bilaterally. Finger to nose intact bilaterally. [id number] intact bilaterally. She was gait tested in the emergency department and had normal steady gait. Her workup did not reveal acute cause for her symptoms this evening. She was however incidentally noted to have mildly prolonged QT on her 12-lead EKG although there were no or acute findings. This couldn't be incidental finding this evening or could be secondary to some medications the patient is taking for anxiety and depression. I did discuss this finding with the patient's and he will contact the PCP tomorrow for close follow-up and repeat EKG and medication adjustment if thought necessary. Patient does have some dementia and she did have mild tremor on exam. Both of these are baseline. All of her questions and the 's questions are answered prior to discharge and the patient is discharged home from the ER. ECG Initial ECG Impression Date: September 01, 2019 Initial ECG Impression Time: 19:50 Initial ECG Rate: 67 Initial ECG Rhythm: Normal Sinus Initial ECG Impression: Normal Departure Impression Primary Impression: Prolonged Q-T interval on ECG Additional Impression: Fall Disposition: 01 HOME, SELF-CARE Condition: Stable Departure-Patient Inst. Referrals: DENA MADERA MD (PCP/Family) Primary Care Physician ANGELES MASTERS DO September 01, 2019 19:15
--- OUTSIDE RECORDS SUMMARY | 2019-09-01 19:17 | XMS REPORT | Continuity of Care Document ---
Author Organization Unknown Address Unknown Phone Unavailable Allergies Active Description Code Type Severity Reaction Onset Reported/Identified Relationship to Patient Clinical Status Yes No Allergy Information Available [id number] Drug Allergy Unknown N/A 018 Yes adhesive tape [id number] Aniket g Allergy Unknown N/A 11/09/2018 Yes benztropine [id number] Drug Aller gy Unknown N/A 11/09/2018 Yes cephalexin [id number] Drug Allerg y Unknown N/A 11/09/2018 Yes gabapentin [id number] Drug Allerg y Unknown N/A 11/09/2018 Yes latex [id number] Drug Allergy Unknown N/A 11/09/2018 Yes medroxyprogesterone [id number] Drug Allergy Unknown N/A 11/09/2018 Yes nickel [id number] Drug Allergy Unknown N/A 11/09/[id number] ug Allergy Unknown N/A 11/09/2018 Yes Sulfa (Sulfonamide Antibiotics) [id number] Drug Allergy Unknown N/A 019 Yes tramadol [id number] Drug Allergy Unknown N/A 11/09/2018 Medications There is no data. 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, CIGARETTES, UNCOMPL 01/26/2018 LEMUEL SULLIVAN DOI Ot J44.1 CHRONIC OBSTRUCTIVE PULMONARY DISEASE W 01/26/2018 LEMUEL SULLIVAN DOI Ot J96.00 ACUTE RESPIRATORY FAILURE, UNSP W HYPOXI 01/26/2018 CORIN SULLIVAN DO Ot D72.82 9 ELEVATED WHITE BLOOD CELL COUNT, UNSPECI 01/26/2018 LAURIE DO, CORIN Ot F03.90 UNSPECIFIED DEMENTIA WITHOUT BEHAVIORAL 01/26/2018 SULLIVAN DO, CORIN Ot F10.12 9 ALCOHOL ABUSE WITH INTOXICATION, UNSPECI 01/26/2018 LAURIE DO, CORIN Ot F17.21 0 NICOTINE DEPENDENCE, CIGARETTES, UNCOMPL 01/26/2018 SULLIVAN DO, CORIN Ot F32.9 MAJOR DEPRESSIVE DISORDER, SINGLE EPISOD 01/26/2018 SULLIVAN DO, CORIN Ot F41.9 ANXIETY DISORDER, UNSPECIFIED 01/26/2018 SULLIVAN DO, CORIN Ot J43.9 EMPHYSEMA, UNSPECIFIED 01/26/2018 SULLIVAN DO, CORIN Ot J44.1 CHRONIC OBSTRUCTIVE PULMONARY DISEASE W 01/26/2018 SULLIVAN DO, CORIN Ot J96.00 ACUTE RESPIRATORY FAILURE, UNSP W HYPOXI 02/20/2018 RONNY TITUS TAXICAB DRIVER Ot F17.200 NICOTINE DEPENDENCE, UNSPECIFIED, UNCOMP 02/20/2018 RONNY TITUS TAXICAB DRIVER Ot J44.9 CHRONIC OBSTRUCTIVE PULMONARY DISEASE, U 02/20/2018 SOFY TITUSINE E TAXICAB DRIVER Ot R91.1 SOLITARY PULMONARY NODULE 03/12/2018 SOFY TITUSINE E TAXICAB DRIVER Ot F17.200 NICOTINE DEPENDENCE, UNSPECIFIED, UNCOMP 03/12/2018 SOFY TITUSINE E TAXICAB DRIVER Ot J44.9 CHRONIC OBSTRUCTIVE PULMONARY DISEASE, U 03/12/2018 SOFY TITUSINE E TAXICAB DRIVER Ot R91.1 SOLITARY PULMONARY NODULE 04/09/2018 RONNY TITUS TAXICAB DRIVER Ot F17.200 NICOTINE DEPENDENCE, UNSPECIFIED, UNCOMP 04/09/2018 RONNY TITUS TAXICAB DRIVER Ot J44.9 CHRONIC OBSTRUCTIVE PULMONARY DISEASE, U 04/09/2018 SOFY TITUSINE Jose Guadalupe TAXICAB DRIVER Ot R91.1 SOLITARY PULMONARY NODULE 06/05/2018 SOFY TITUSINE Jose Guadalupe TAXICAB DRIVER Ot F17.200 NICOTINE DEPENDENCE, UNSPECIFIED, UNCOMP 06/05/2018 RONNY TITUS TAXICAB DRIVER Ot J44.9 CHRONIC OBSTRUCTIVE PULMONARY DISEASE, U 06/05/2018 SOFY TITUSINE oJse Guadalupe TAXICAB DRIVER Ot R91.1 SOLITARY PULMONARY NODULE 06/05/2018 SOFY TITUSINE Jose Guadalupe TAXICAB DRIVER Ot F17.200 NICOTINE DEPENDENCE, UNSPECIFIED, UNCOMP 06/05/2018 RONNY TITUS TAXICAB DRIVER Ot J44.9 CHRONIC OBSTRUCTIVE PULMONARY DISEASE, U 06/05/2018 ARIELA, RONNY Jose Guadalupe TAXICAB DRIVER Ot R91.1 SOLITARY PULMONARY NODULE 06/05/2018 ARIELA, RONNY Shi TAXICAB DRIVER Ot F17.200 NICOTINE DEPENDENCE, UNSPECIFIED, UNCOMP 06/05/2018 ARIELA, RONNY Shi TAXICAB DRIVER Ot J44.9 CHRONIC OBSTRUCTIVE PULMONARY DISEASE, U 06/05/2018 ARIELA, RONNY Jose Guadalupe TAXICAB DRIVER Ot R91.1 SOLITARY PULMONARY NODULE 11/09/2018 ARIELA, RONNY Shi TAXICAB DRIVER Ot F17.200 NICOTINE DEPENDENCE, UNSPECIFIED, UNCOMP 11/09/2018 ARIELA RONNY Shi TAXICAB DRIVER Ot J44.9 CHRONIC OBSTRUCTIVE PULMONARY DISEASE, U 11/09/2018 ARIELA RONNY Shi TAXICAB DRIVER Ot R91.1 SOLITARY PULMONARY NODULE 11/15/2018 NABILA MARR MD Ot E03 .9 HYPOTHYROIDISM, UNSPECIFIED 11/15/2018 NABILA MARR MD Ot F03.90 UNSPECIFIED DEMENTIA WITHOUT BEHAVIORAL 11/15/2018 NABILA MARR MD Ot F12.10 CANNABIS ABUSE, UNCOMPLICATED 11/15/2018 NABILA MARR MD Ot F31 .9 BIPOLAR DISORDER, UNSPECIFIED 11/15/2018 NABILA MARR MD Ot F41 .9 ANXIETY DISORDER, UNSPECIFIED 11/15/2018 NABILA MARR MD Ot F90 .9 ATTENTION-DEFICIT HYPERACTIVITY DISORDER 11/15/2018 NABILA MARR MD Ot J43 .9 EMPHYSEMA, UNSPECIFIED 11/15/2018 NABILA MARR MD Ot K58 .9 IRRITABLE BOWEL SYNDROME WITHOUT DIARRHE 11/15/2018 NABILA MARR MD Ot R42 DIZZINESS AND GIDDINESS 11/15/2018 NABILA MARR MD Ot R55 SYNCOPE AND COLLAPSE 11/15/2018 NABILA MARR MD Ot Z82.49 FAMILY HX OF ISCHEM HEART DIS AND OTH DI 11/15/2018 NABILA MARR MD Ot Z88 .1 ALLERGY STATUS TO OTHER ANTIBIOTIC AGENT 11/15/2018 NABILA MARR MD Ot Z88 .2 ALLERGY STATUS TO SULFONAMIDES STATUS 11/15/2018 NABILA MARR MD Ot Z88 .5 ALLERGY STATUS TO NARCOTIC AGENT STATUS 11/15/2018 NABILA MARR MD Ot Z88 .8 ALLERGY STATUS TO OTH DRUG/MEDS/BIOL SUB 11/15/2018 NABILA MARR MD Ot Z90.710 ACQUIRED ABSENCE OF BOTH CERVIX AND UTER 11/15/2018 NABILA MARR MD Ot Z91.040 LATEX ALLERGY STATUS 11/17/2018 NABILA MARR MD Ot E03 .9 HYPOTHYROIDISM, UNSPECIFIED 11/17/2018 NABILA MARR MD Ot F03.90 UNSPECIFIED DEMENTIA WITHOUT BEHAVIORAL 11/17/2018 NABILA MARR MD Ot F12.10 CANNABIS ABUSE, UNCOMPLICATED 11/17/2018 NABILA MARR MD Ot F31 .9 BIPOLAR DISORDER, UNSPECIFIED 11/17/2018 NABILA MARR MD Ot F41 .9 ANXIETY DISORDER, UNSPECIFIED 11/17/2018 NABILA MARR MD Ot F90 .9 ATTENTION-DEFICIT HYPERACTIVITY DISORDER 11/17/2018 NABILA MARR MD Ot J43 .9 EMPHYSEMA, UNSPECIFIED 11/17/2018 NABILA MARR MD Ot K58 .9 IRRITABLE BOWEL SYNDROME WITHOUT DIARRHE 11/17/2018 NABILA MARR MD Ot R42 DIZZINESS AND GIDDINESS 11/17/2018 NABILA MARR MD Ot R55 SYNCOPE AND COLLAPSE 11/17/2018 NABILA MARR MD Ot Z82.49 FAMILY HX OF ISCHEM HEART DIS AND OTH DI 11/17/2018 NABILA MARR MD Ot Z88 .1 ALLERGY STATUS TO OTHER ANTIBIOTIC AGENT 11/17/2018 NABILA MARR MD Ot Z88 .2 ALLERGY STATUS TO SULFONAMIDES STATUS 11/17/2018 NABILA MARR MD Ot Z88 .5 ALLERGY STATUS TO NARCOTIC AGENT STATUS 11/17/2018 NABILA MARR MD Ot Z88 .8 ALLERGY STATUS TO OTH DRUG/MEDS/BIOL SUB 11/17/2018 NABILA MARR MD Ot Z90.710 ACQUIRED ABSENCE OF BOTH CERVIX AND UTER 11/17/2018 NABILA MARR MD Ot Z91.040 LATEX ALLERGY STATUS 01/21/2019 RONNY TITUS APRN Ot J44.9 CHRONIC OBSTRUCTIVE PULMONARY DISEASE, U 01/21/2019 RONNY TITUS APRN Ot R91.8 OTHER NONSPECIFIC ABNORMAL FINDING OF CRISTINA 01/23/2019 RONNY TITUS APRN, Ot J44.9 CHRONIC OBSTRUCTIVE PULMONARY DISEASE, U 01/23/2019 RONNY TITUS APRN Ot R91.8 OTHER NONSPECIFIC ABNORMAL FINDING OF CRISTINA 02/06/2019 RONNY TITUS APRN, Ot J44.9 CHRONIC OBSTRUCTIVE PULMONARY DISEASE, U 02/06/2019 RONNY TITUS APRN Ot R91.8 OTHER NONSPECIFIC ABNORMAL FINDING OF CRISTINA Procedures Code Description Performed By Per formed On [id number] RE SPIRATORY VENTILATION, LESS THAN 24 CO 01/25/2018 Results Test Result Range Methicillin resistant Staphylococcus aur eus (MRSA) screening culture - 01/25/18 18:53 Methicillin resistant Staphylococcus aureus (MRSA) scr eening culture NEG NRG Sputum Gram stain - 01/25/18 19:00 Sputum Gram stain REPORTED 01-26-2018, 1705. NRG Bacterial sputum culture - 01/25/18 19:0 0 FREE TEXT EXTERNAL FINAL REPORT 08:05 NRG QUANTITY OF GROWTH . NRG Bacterial sputum culture USUAL RESP NRG Arterial blood gas measurement - 8 19:20 Blood pCO2 36 mm[Hg] 35-45 Blood pO2 132 mm[Hg] 79-93 Arterial blood bicarbonate measurement (moles/volume) 23 mmol/L 23-27 Arterial blood base excess by calculation -1.7 mmo l/L -2.5-2.5 Arterial blood oxygen saturation measurement 99 % 94-100 * Inhaled oxygen flow rate 50% NRG Arterial blood pH measurement with patient temperature correction 7.41 7.37-7.43 Arterial blood carbon dioxide, total measurement (mole s/volume) 23.7 mmol/L 21.0-31.0 Body site LT RAD NRG Assessment of wrist artery patency prior to arterial p uncture YES-POS NRG Setting of ventilation mode YES NR G Measurement of body temperature 96.6 NRG Complete blood count (CBC) with automate d white blood cell (WBC) differential - 01/25/18 19:20 Blood leukocytes automated count (number/volume) 7.0 10*3/uL 4.3-11.0 Blood erythrocytes automated count (number/volume) 3.08 10*6/uL 4.35-5.85 Venous blood hemoglobin measurement (mass/volume) 10.5 g/dL 11.5-16.0 Blood hematocrit (volume fraction) 30 % 35-52 Automated erythrocyte mean corpuscular volume 98 [ foz_us] 80-99 Automated erythrocyte mean corpuscular h emoglobin (mass per erythrocyte) 34 pg 25-34 Automated erythrocyte mean corpuscular h emoglobin concentration measurement (mass/volume) 35 g/dL 32-36 Automated erythrocyte distribution width ratio 11. 5 % 10.0- 14.5 Automated blood platelet count [...] 10*3 1.0-4.0 Blood monocytes automated count (number/volume) 0. 2 10*3 0.0-1.0 Automated eosinophil count 0.0 10*3/uL 0 .0-0.3 Automated blood basophil count (count/volume) 0.0 10*3/uL 0.0-0.1 Blood lactic acid measurement (moles/vol ume) - 01/25/18 19:20 Blood lactic acid measurement (moles/volume) 1.86 mmol/L 0.50-2.00 Comprehensive metabolic panel - 01/25/18 19:20 Serum or plasma sodium measurement (moles/volume) 144 mmol/L 135-145 Serum or plasma potassium measurement (moles/volume) 2.9 mmol/L 3.6-5.0 Serum or plasma chloride measurement (moles/volume) 124 mmol/L 98-107 Carbon dioxide 13 mmol/L 21-32 Serum or plasma anion gap determination (moles/volume) 7 mmol/L 5-14 Serum or plasma urea nitrogen measurement (mass/volume ) 14 mg/dL 7-18 Serum or plasma creatinine measurement (mass/volume) 0.64 mg/dL 0.60-1.30 Serum or plasma urea nitrogen/creatinine mass ratio 22 NRG Serum or plasma creatinine measurement w ith calculation of estimated glomerular filtration rate > NRG Serum or plasma glucose measurement (mass/volume) 84 mg/dL 70-105 Serum or plasma calcium measurement (mass/volume) 6.6 mg/dL 8.5-10.1 Serum or plasma total bilirubin measurement (mass/volu me) 0.2 mg/dL 0.1-1.0 Serum or plasma alkaline phosphatase viktoria surement (enzymatic activity/volume) 38 U/L 40-136 Serum or plasma aspartate aminotransfera se measurement (enzymatic activity/volume) 17 U/L 5-34 Serum or plasma alanine aminotransferase measurement (enzymatic activity/volume) 12 U/L 0-55 Serum or plasma protein measurement (mass/volume) 4.0 g/dL 6.4-8.2 Serum or plasma albumin measurement (mass/volume) 2.5 g/dL 3.2-4.5 CALCIUM CORRECTED 7.8 mg/dL 8.5-10.1 Serum or plasma triglyceride measurement (mass/volume) - 01/25/18 19:20 Serum or plasma triglyceride measurement (mass/volume) 86 mg/dL <150 Serum or plasma ethanol measurement (mas s/volume) - 01/25/18 19:20 Serum or plasma ethanol measurement (mass/volume) 218 mg/dL <10 Serum or plasma triglyceride measurement (mass/volume) - 01/25/18 19:20 Serum or plasma triglyceride measurement (mass/volume) 87 mg/dL <150 Magnesium - 01/25/18 19:20 Magnesium 1.7 mg/dL 1.8-2.4 THYROID STIMULATING HORMONE - 01/25/18 1 9:20 THYROID STIMULATING HORMONE 0.65 u[iU]/mL 0.35-4.94 Serum or plasma thyroxine (T4) free doni urement (mass/volume) - 01/25/18 19:20 Serum or plasma thyroxine (T4) free measurement (mass/ volume) 1.14 ng/dL 0.70-1.48 Serum or plasma cortisol measurement (ma ss/volume) - 01/25/18 19:20 Cortisol PM 10.5 % 2.9-17.3 Capillary blood glucose measurement by g lucometer (mass/volume) - 01/26/18 00:11 Capillary blood glucose measurement by glucometer (mas s/volume) 87 mg/dL 70-110 Complete blood count (CBC) with automate d white blood cell (WBC) differential - 01/26/18 03:02 Blood leukocytes automated count (number/volume) 17.7 10*3/uL 4.3-11.0 Blood erythrocytes automated count (number/volume) 4.10 10*6/uL 4.35-5.85 Venous blood hemoglobin measurement (mass/volume) 13.6 g/dL 11.5-16.0 Blood hematocrit (volume fraction) 40 % 35-52 Automated erythrocyte mean corpuscular volume 97 [ foz_us] 80-99 Automated erythrocyte mean corpuscular h emoglobin (mass per erythrocyte) 33 pg 25-34 Automated erythrocyte mean corpuscular h emoglobin concentration measurement (mass/volume) 34 g/dL 32-36 Automated erythrocyte distribution width ratio 11. 7 % 10.0- 14.5 Automated blood platelet count [...] 10*3 1.0-4.0 Blood monocytes automated count (number/volume) 0. 9 10*3 0.0-1.0 Automated eosinophil count 0.0 10*3/uL 0 .0-0.3 Automated blood basophil count (count/volume) 0.0 10*3/uL 0.0-0.1 Comprehensive metabolic panel - 01/26/18 03:02 Serum or plasma sodium measurement (moles/volume) 144 mmol/L 135-145 Serum or plasma potassium measurement (moles/volume) 4.1 mmol/L 3.6-5.0 Serum or plasma chloride measurement (moles/volume) 115 mmol/L 98-107 Carbon dioxide 20 mmol/L 21-32 Serum or plasma anion gap determination (moles/volume) 9 mmol/L 5-14 Serum or plasma urea nitrogen measurement (mass/volume ) 12 mg/dL 7-18 Serum or plasma creatinine measurement (mass/volume) 0.77 mg/dL 0.60-1.30 Serum or plasma urea nitrogen/creatinine mass ratio 16 NRG Serum or plasma creatinine measurement w ith calculation of estimated glomerular filtration rate > NRG Serum or plasma glucose measurement (mass/volume) 97 mg/dL 70-105 Serum or plasma calcium measurement (mass/volume) 8.3 mg/dL 8.5-10.1 Serum or plasma total bilirubin measurement (mass/volu me) 0.4 mg/dL 0.1-1.0 Serum or plasma alkaline phosphatase viktoria surement (enzymatic activity/volume) 58 U/L 40-136 Serum or plasma aspartate aminotransfera se measurement (enzymatic activity/volume) 43 U/L 5-34 Serum or plasma alanine aminotransferase measurement (enzymatic activity/volume) 32 U/L 0-55 Serum or plasma protein measurement (mass/volume) 6.1 g/dL 6.4-8.2 Serum or plasma albumin measurement (mass/volume) 3.8 g/dL 3.2-4.5 CALCIUM CORRECTED 8.5 mg/dL 8.5-10.1 Serum or plasma phosphate measurement (m ass/volume) - 01/26/18 03:02 Serum or plasma phosphate measurement (mass/volume) 2.1 mg/dL 2.3-4.7 Magnesium - 01/26/18 03:02 Magnesium 1.9 mg/dL 1.8-2.4 Serum or plasma ethanol measurement (mas s/volume) - 01/26/18 03:02 Serum or plasma ethanol measurement (mass/volume) 80 mg/dL <10 Blood manual differential performed dete ction - 01/26/18 03:02 Blood monocytes/100 leukocytes 2 % NRG Manual blood segmented neutrophils/100 leukocytes 84 % NRG Blood band neutrophils/100 leukocytes 1 % NRG Manual blood lymphocytes/100 leukocytes 13 % NRG Manual eosinophils/100 leukocytes in nose 0 % NRG Manual blood basophils/100 leukocytes 0 % NRG Blood toxic granules detection by light microscopy 1+ NRG Arterial blood gas measurement - 8 03:45 Blood pCO2 44 mm[Hg] 35-45 Blood pO2 148 mm[Hg] 79-93 Arterial blood bicarbonate measurement (moles/volume) 22 mmol/L 23-27 Arterial blood base excess by calculation -3.4 mmo l/L -2.5-2.5 Arterial blood oxygen saturation measurement 99 % 94-100 * Inhaled oxygen flow rate 40% NRG Arterial blood pH measurement with patient temperature correction 7.32 7.37-7.43 Arterial blood carbon dioxide, total measurement (mole s/volume) 23.2 mmol/L 21.0-31.0 Body site L RAD NRG Assessment of wrist artery patency prior to arterial p uncture YES-POS NRG Setting of ventilation mode YES NR G Measurement of body temperature 98.4 NRG Arterial blood gas measurement - 8 08:20 Blood pCO2 39 mm[Hg] 35-45 Blood pO2 86 mm[Hg] 79-93 Arterial blood bicarbonate measurement (moles/volume) 21 mmol/L 23-27 Arterial blood base excess by calculation -3.2 mmo l/L -2.5-2.5 Arterial blood oxygen saturation measurement 97 % 94-100 * Inhaled oxygen flow rate 1 L 25% NRG Arterial blood pH measurement with patient temperature correction 7.36 7.37-7.43 Arterial blood carbon dioxide, total measurement (mole s/volume) 22.5 mmol/L 21.0-31.0 Body site LEFT RADIAL NRG Assessment of wrist artery patency prior to arterial p uncture POSITIVE NRG Setting of ventilation mode YES NR G Measurement of body temperature 99.2 NRG C DIFFICILE AG + TOXIN A/B. - 01/26/18 0 9:53 RESULTS NEGATIVE FOR ANTIGEN AND TOXIN A/B NRG CULTURE, URINE - 08/22/18 16:57 CULTURE, URINE, ROUTINE SEE NOTE NRG Complete blood count (CBC) with automate d white blood cell (WBC) differential - 11/09/18 12:25 Blood leukocytes automated count (number/volume) 9.1 10*3/uL 4.3-11.0 Blood erythrocytes automated count (number/volume) 4.08 10*6/uL 4.35-5.85 Venous blood hemoglobin measurement (mass/volume) 13.4 g/dL 11.5-16.0 Blood hematocrit (volume fraction) 41 % 35-52 Automated erythrocyte mean corpuscular volume 101 [foz_us] 80-99 Automated erythrocyte mean corpuscular h emoglobin (mass per erythrocyte) 33 pg 25-34 Automated erythrocyte mean corpuscular h emoglobin concentration measurement (mass/volume) 33 g/dL 32-36 Automated erythrocyte distribution width ratio 13. 1 % 10.0- 14.5 Automated blood platelet count [...] 10*3 1.0-4.0 Blood monocytes automated count (number/volume) 0. 6 10*3 0.0-1.0 Automated eosinophil count 0.0 10*3/uL 0 .0-0.3 Automated blood basophil count (count/volume) 0.1 10*3/uL 0.0-0.1 Complete urinalysis with reflex to cultu re - 11/09/18 12:25 Urine color determination YELLOW NRG Urine clarity determination SLT CLOUDY NRG Urine pH measurement by test strip 6.0 5-9 Specific gravity of urine by test strip >= 1.016-1.022 Urine protein assay by test strip, semi-quantitative 2+ NEGATIVE Urine glucose detection by automated test strip NE GATIVE NEGATIVE Erythrocytes detection in urine sediment by light micr oscopy 1+ NEGATIVE Urine ketones detection by automated test strip NE GATIVE NEGATIVE Urine nitrite detection by test strip NEGATIVE NEGATIVE Urine total bilirubin detection by test strip NEGA TIVE NEGATIVE Urine urobilinogen measurement by automated test strip (mass/volume) 0.2 mg/dL NORMAL Urine leukocyte esterase detection by dipstick NEG ATIVE NEGATIVE Automated urine sediment erythrocyte cou nt by microscopy (number/high power field) [HPF] NRG Automated urine sediment leukocyte count by microscopy (number/high power field) NONE NRG Bacteria detection in urine sediment by light microsco py FEW NRG Squamous epithelial cells detection in u rine sediment by light microscopy 25-50 NRG Crystals detection in urine sediment by light microsco py NONE NRG Casts detection in urine sediment [...] 5-14 Serum or plasma urea nitrogen measurement (mass/volume ) 18 mg/dL 7-18 Serum or plasma creatinine measurement (mass/volume) 1.07 mg/dL 0.60-1.30 Serum or plasma urea nitrogen/creatinine mass ratio 17 NRG Serum or plasma creatinine measurement w ith calculation of estimated glomerular filtration rate 51 NRG Serum or plasma glucose measurement (mass/volume) 109 mg/dL 70-105 Serum or plasma calcium measurement (mass/volume) 9.9 mg/dL 8.5-10.1 Serum or plasma total bilirubin measurement (mass/volu me) 0.6 mg/dL 0.1-1.0 Serum or plasma alkaline phosphatase viktoria surement (enzymatic activity/volume) 64 U/L 40-136 Serum or plasma aspartate aminotransfera se measurement (enzymatic activity/volume) 21 U/L 5-34 Serum or plasma alanine aminotransferase measurement (enzymatic activity/volume) 20 U/L 0-55 Serum or plasma protein measurement (mass/volume) 7.0 g/dL 6.4-8.2 Serum or plasma albumin measurement (mass/volume) 4.3 g/dL 3.2-4.5 CALCIUM CORRECTED 9.7 mg/dL 8.5-10.1 Encounters ACCT No. Visit Date/Time Discharge Status Pt. Type Provider Facility Loc./Unit Complaint [id number] 06/04/2019 14:40:00 06/04/2019 23:59: 59 CLS Outpatient MILAGRO OROPEZA [facility] [id number] 08/22/2018 16:20:00 Document Registration [id number] 01/17/2019 13:12:00 23:59:59 CLS Outpatient RONNY TITUS APRN [facility] RAD LUNG MASS [id number] 01/17/2019 10:44:00 23:59:59 CLS Preadmit RONNY TITUS APRN [facility] RAD LUNG MASS [id number] 11/09/2018 12:14:00 13:49:00 DIS Outpatient JUSTA PEREA, NABILA Ahn [facility] ER FS VOMITING/FALL [id number] 03/05/2018 16:23:00 23:59:59 CLS Preadmit RONNY TITUS APRN [facility] RAD LUNG MASS [id number] 02/16/2018 12:15:00 23:59:59 CLS Outpatient RONNY TITUS APRN [facility] RAD COPD [id number] 01/25/2018 18:25:00 12:00:00 DIS Inpatient CORIN SULLIVAN DO [facility] ICU RESP FAILURE
[2019-09-01 19:29] LABS: BASOPHILS % (AUTO) 0 % (0-10); EOSINOPHILS % (AUTO) 0 % (0-10); HEMATOCRIT 40 % (35-52); HEMOGLOBIN 12.8 G/DL (11.5-16.0); LYMPHOCYTES # (AUTO) 4.5 X 10^3 (1.0-4.0); LYMPHOCYTES % (AUTO) 37 % (12-44); MEAN CORPUSCULAR HEMOGLOBIN 31 PG (25-34); MEAN CORPUSCULAR HGB CONC 32 G/DL (32-36); MEAN CORPUSCULAR VOLUME 97 FL (80-99); MEAN PLATELET VOLUME 8.7 FL (7.4-10.4); MONOCYTES % (AUTO) 9 % (0-12); NEUTROPHILS # (AUTO) 6.5 X 10^3 (1.8-7.8); NEUTROPHILS % (AUTO) 54 % (42-75); PLATELET COUNT 290 10^3/uL (130-400); RED CELL DISTRIBUTION WIDTH 12.7 % (10.0-14.5); WHITE BLOOD COUNT 12.1 10^3/uL (4.3-11.0)
[2019-09-01] MEDS ORDERED: NS IV 1000 ML 1,000 ML IV SCH (19:30)
[2019-09-01 19:43] LABS: BUN/CREATININE RATIO 10; CALCIUM 9.5 MG/DL (8.5-10.1); CARBON DIOXIDE 22 MMOL/L (21-32); CHLORIDE 103 MMOL/L (98-107); GFR ESTIMATED > 60; GLUCOSE 76 MG/DL (70-105); POTASSIUM 3.5 MMOL/L (3.6-5.0); SODIUM 138 MMOL/L (135-145)
[2019-09-01 20:18] LABS: BACTERIA,URINE FEW /HPF; BILIRUBIN,URINE NEGATIVE (NEGATIVE); CLARITY,URINE CLEAR; COLOR,URINE YELLOW; GLUCOSE, URINE (UA) NEGATIVE (NEGATIVE); KETONES,URINE NEGATIVE (NEGATIVE); LEUKOCYTE ESTERASE ,URINE NEGATIVE (NEGATIVE); NITRITE,URINE NEGATIVE (NEGATIVE); PROTEIN,URINE NEGATIVE (NEGATIVE); RBC,URINE 0-2 /HPF
--- NOTE | 2019-09-01 20:20 | Diagnostic Imaging Report ---
PROCEDURE: CT head and CT cervical spine without contrast. TECHNIQUE: Multiple contiguous axial images were obtained through the brain and cervical spine without the use of intravenous contrast. Sagittal and coronal reformations through the cervical spine were then performed. Auto Exposure Controls were utilized during the CT exam to meet ALARA standards for radiation dose reduction. INDICATION: Generalized weakness, fatigue. COMPARISON: None. FINDINGS: CT head: Ventricles and cortical sulci appear age-appropriate. There is no midline shift or mass effect. No acute intracranial hemorrhage is seen. There is no CT evidence of acute territorial ischemia. The calvarium appears intact. Visualized paranasal sinuses are clear. CT cervical spine: There is mild reversal of the cervical lordosis centered at C6. There are advanced degenerative changes at C5-C6 and C6-C7. No acute fracture is seen. There is facet arthropathy. No bony fragment or hyperdense fluid collection is seen in the spinal canal. There is mild scarring in the lung apices. The soft tissues about the cervical spine demonstrate no acute abnormality. IMPRESSION: 1. No acute intracranial hemorrhage or CT evidence of acute territorial ischemia. 2. Advanced degenerative changes in the lower cervical spine with no acute fracture seen. Dictated by: Dictated on workstation # [id number]
[2019-09-01 20:34] VITALS: BP 111/68
== END 2019-09-01 20:36 | disposition home or self-care (01) ==
LOC: EDUNIT# 19:11 → ER FS 19:13
DX: R94.31 Abnormal electrocardiogram [ECG] [EKG] (principal); E03.9 Hypothyroidism, unspecified; F41.9 Anxiety disorder, unspecified; F31.9 Bipolar disorder, unspecified; J43.9 Emphysema, unspecified; Z88.2 Allergy status to sulfonamides; Z88.8 Allergy status to other drugs, medicaments and biological substances; Z88.1 Allergy status to other antibiotic agents; Z91.040 Latex allergy status; Z88.5 Allergy status to narcotic agent; Z79.52 Long term (current) use of systemic steroids; Z82.49 Family history of ischemic heart disease and other diseases of the circulatory system; W01.0XXA Fall on same level from slipping, tripping and stumbling without subsequent striking against object, initial encounter; Y92.019 Unspecified place in single-family (private) house as the place of occurrence of the external cause
CPT/HCPCS: 36415; 70450; 72125; 80048; 81000; 82962; 84484; 85025; 87088; 93005; 96360

== ENCOUNTER → 2019-09-20 | Outpatient (CLI) | payer MEDICARE, OTHER ==
[~2019-09-20] MED LIST changes: +CATHETER FLUSH 10 ML SYR IV PRN; +HOLD METFORMIN - RECEIVED CONTRAST 20 ML VIAL IV SCH; +IOHEXOL 350 MG/ML 100 ML (OMNIPAQUE 350) VIAL IV ONE; +NS 100 ML (IVPB) BAG IV ONE
[2019-09-20 11:51] LABS: CREATININE SERUM 1.17 MG/DL (0.60-1.30)
--- NOTE | 2019-09-20 14:20 | Diagnostic Imaging Report ---
PROCEDURE: CT chest with contrast only. TECHNIQUE: Multiple contiguous axial images were obtained through the chest after administration of intravenous contrast. Auto Exposure Controls were utilized during the CT exam to meet ALARA standards for radiation dose reduction. DATE: September 20, 2019. COMPARISON: CT chest January 17, 2019. CT chest February 16, 2018. INDICATION: 68-year-old female, followup pulmonary nodules. FINDINGS: There are upper lobe predominant findings of emphysema. There is tree-in-bud type nodularity in the right upper lobe on axial image 37 and adjacent sequential images. This is stable since February 16, 2018. There is a 4 mm pulmonary nodule in the lingula on axial image 105 which is stable since February 16, 2018. There is no new or enlarging pulmonary nodule. There is no otherwise noted focal airspace consolidation. There is no pneumothorax. There is no pleural effusion. The central airways are patent. The main pulmonary artery is normal in diameter. There is no identified central pulmonary embolus. The heart is not enlarged. There is no pericardial effusion. There are atherosclerotic calcifications. There is no identified abnormally enlarged mediastinal, hilar, or axillary lymph node which meets CT size criteria for adenopathy. The patient is status post cholecystectomy. There is dilation of the common bile duct measuring up to approximately 14 mm in diameter. This is similar to comparison imaging. There is no CT apparent common bile duct stone or ampullary mass. The field of view of imaging does not extend all the way to the duodenal insertion of the common bile duct. The main pancreatic duct is normal in caliber. There is nonspecific fairly long segment wall thickening of the mid to distal esophagus. Additional evaluation of the imaged portions of the upper abdomen is grossly unremarkable. There are degenerative changes of the spine. There is a remote prior left 12th rib fracture posteriorly. There is no identified acute bony abnormality. IMPRESSION: CT CHEST. 1. Stable 4 mm pulmonary nodule in the lingula since at least January 2018. Recommend followup CT chest in one year to document greater than 2 year stability. 2. Unchanged tree-in-bud nodularity in the right upper lobe since at least January 2018. This is most consistent with sequela of prior process spreading via endobronchial means which is most typically sequela of prior infectious bronchiolitis or aspiration. 3. Upper lobe predominant findings of emphysema. 4. Fairly long segment mild wall thickening of the mid to distal esophagus. Malignancy and esophagitis are both in the differential diagnosis. 5. Redemonstrated dilated common bile duct status post cholecystectomy without visible cause in the included field of view. There is no dilation of the main pancreatic duct. Dictated by: Dictated on workstation # [id number]
== END ==
LOC: RAD 11:22
PROVIDERS: ATTEND Nurse Practitioner Family
DX: J43.9 Emphysema, unspecified (principal); R91.8 Other nonspecific abnormal finding of lung field; F22 Delusional disorders; K22.8 Other specified diseases of esophagus; K83.8 Other specified diseases of biliary tract; F17.200 Nicotine dependence, unspecified, uncomplicated; Z90.49 Acquired absence of other specified parts of digestive tract
CPT/HCPCS: 36415; 71260; 82565; 84520

== ENCOUNTER 2019-11-01 18:57 | Emergency (ER) | payer MEDICARE, OTHER ==
[~2019-11-01] VITALS: Ht 160 cm; Wt 66.9 kg
[~2019-11-01 18:57] MED LIST changes: -CATHETER FLUSH 10 ML SYR IV PRN; -HOLD METFORMIN - RECEIVED CONTRAST 20 ML VIAL IV SCH; -IOHEXOL 350 MG/ML 100 ML (OMNIPAQUE 350) VIAL IV ONE; -NS 100 ML (IVPB) BAG IV ONE
--- OUTSIDE RECORDS SUMMARY | 2019-11-01 19:04 | XMS REPORT | Continuity of Care Document ---
Author Organization Unknown Address Unknown Phone Unavailable Allergies Active Description Code Type Severity Reaction Onset Reported/Identified Relationship to Patient Clinical Status Yes No Allergy Information Available [id number] Drug Allergy Unknown N/A 018 Yes adhesive tape [id number] Aniket g Allergy Unknown N/A 11/09/2018 Yes benztropine [id number] Drug Aller gy Unknown N/A 11/09/2018 Yes cephalexin [id number] Drug Allerg y Unknown N/A 11/09/2018 Yes gabapentin [id number] Drug Allerg y Unknown N/A 11/09/2018 Yes latex [id number] Drug Allergy Unknown N/A 11/09/2018 Yes medroxyprogesterone [id number] Drug Allergy Unknown N/A 11/09/2018 Yes nickel [id number] Drug Allergy Unknown N/A 11/09/[id number] ug Allergy Unknown N/A 11/09/2018 Yes Sulfa (Sulfonamide Antibiotics) [id number] Drug Allergy Unknown N/A 019 Yes tramadol [id number] Drug Allergy Unknown N/A 11/09/2018 Medications There [...] ACUTE RESPIRATORY FAILURE, UNSP W HYPOXI 01/26/2018 CORNI SULLIVAN DO Ot D72.82 9 ELEVATED WHITE [...] FAILURE, UNSP W HYPOXI 02/20/2018 RONNY TITUS LOCKER ATTENDANT Ot F17.200 NICOTINE DEPENDENCE, UNSPECIFIED, UNCOMP 02/20/2018 RONNY TITUS LOCKER ATTENDANT Ot J44.9 CHRONIC OBSTRUCTIVE PULMONARY DISEASE, U 02/20/2018 SOFY TITUSINE E LOCKER ATTENDANT Ot R91.1 SOLITARY PULMONARY NODULE 03/12/2018 SOFY TITUSINE E LOCKER ATTENDANT Ot F17.200 NICOTINE DEPENDENCE, UNSPECIFIED, UNCOMP 03/12/2018 SOFY TITUSINE E LOCKER ATTENDANT Ot J44.9 CHRONIC OBSTRUCTIVE PULMONARY DISEASE, U 03/12/2018 SOFY TITUSINE E LOCKER ATTENDANT Ot R91.1 SOLITARY PULMONARY NODULE 04/09/2018 RONNY TITUS LOCKER ATTENDANT Ot F17.200 NICOTINE DEPENDENCE, UNSPECIFIED, UNCOMP 04/09/2018 RONNY TITUS LOCKER ATTENDANT Ot J44.9 CHRONIC OBSTRUCTIVE PULMONARY DISEASE, U 04/09/2018 SOFY TITUSINE Jose Guadalupe LOCKER ATTENDANT Ot R91.1 SOLITARY PULMONARY NODULE 06/05/2018 SOFY TITUSINE Jose Guadalupe LOCKER ATTENDANT Ot F17.200 NICOTINE DEPENDENCE, UNSPECIFIED, UNCOMP 06/05/2018 RONNY TITUS LOCKER ATTENDANT Ot J44.9 CHRONIC OBSTRUCTIVE PULMONARY DISEASE, U 06/05/2018 SOFY TITUSINE Jose Guadalupe LOCKER ATTENDANT Ot R91.1 SOLITARY PULMONARY NODULE 06/05/2018 SOFY TITUSINE Jose Guadalupe LOCKER ATTENDANT Ot F17.200 NICOTINE DEPENDENCE, UNSPECIFIED, UNCOMP 06/05/2018 RONNY TITUS LOCKER ATTENDANT Ot J44.9 CHRONIC OBSTRUCTIVE PULMONARY DISEASE, U 06/05/2018 ARIELA, RONNY Jose Guadalupe LOCKER ATTENDANT Ot R91.1 SOLITARY PULMONARY NODULE 06/05/2018 ARIELA, RONNY Shi LOCKER ATTENDANT Ot F17.200 NICOTINE DEPENDENCE, UNSPECIFIED, UNCOMP 06/05/2018 ARIELA, RONNY Shi LOCKER ATTENDANT Ot J44.9 CHRONIC OBSTRUCTIVE PULMONARY DISEASE, U 06/05/2018 ARIELA, RONNY Jose Guadalupe LOCKER ATTENDANT Ot R91.1 SOLITARY PULMONARY NODULE 11/09/2018 ARIELA, RONNY Shi LOCKER ATTENDANT Ot F17.200 NICOTINE DEPENDENCE, UNSPECIFIED, UNCOMP 11/09/2018 ARIELA RONNY Shi LOCKER ATTENDANT Ot J44.9 CHRONIC OBSTRUCTIVE PULMONARY DISEASE, U 11/09/2018 ARIELA RONNY Shi LOCKER ATTENDANT Ot R91.1 SOLITARY PULMONARY NODULE 11/15/2018 NABILA [...] .2 ALLERGY STATUS TO SULFONAMIDES STATUS 11/17/2018 NAIBLA MARR MD Ot Z88 .5 ALLERGY STATUS [...] ABNORMAL FINDING OF CRISTINA 01/23/2019 RONNY TITUS APRN Ot J44.9 CHRONIC OBSTRUCTIVE PULMONARY DISEASE, U 01/23/2019 RONNY TITUS APRN Ot R91.8 OTHER NONSPECIFIC ABNORMAL FINDING OF CRISTINA 02/06/2019 RONNY TITUS APRN Ot J44.9 CHRONIC OBSTRUCTIVE PULMONARY DISEASE, U 02/06/2019 RONNY TITUS APRN Ot R91.8 OTHER NONSPECIFIC ABNORMAL FINDING OF CRISTINA 09/01/2019 SONAM MILNERANGELES Ot E03 .9 HYPOTHYROIDISM, UNSPECIFIED 09/01/2019 MASTERS DOANGELES Ot F31 .9 BIPOLAR DISORDER, UNSPECIFIED 09/01/2019 MASTERS DOANGELES Ot F41 .9 ANXIETY DISORDER, UNSPECIFIED 09/01/2019 MASTERS DOANGELES Ot J43 .9 EMPHYSEMA, UNSPECIFIED 09/01/2019 MASTERS DOANGELES Ot R53 .1 WEAKNESS 09/01/2019 SONAM MILNERANGELES Ot R94.31 ABNORMAL ELECTROCARDIOGRAM [ECG] [EKG] 09/01/2019 MASTERS ANGELES MILNER Ot W01.0XXA FALL SAME LEV FROM SLIP/TRIP W/O STRIKE 09/01/2019 SONAM MILNERANGELES Ot Y92.[address] IN SINGLE-FAMILY (PRIVATE) HO 09/01/2019 MASTERS ANGELES MILNER Ot Z79.52 CNS (CURRENT) USE OF SYSTEMIC STER 09/01/2019 MASTERS DOANGELES Ot Z82.49 FAMILY HX OF ISCHEM HEART DIS AND OTH DI 09/01/2019 MASTERS ANGELES MILNER Ot Z88 .1 ALLERGY STATUS TO OTHER ANTIBIOTIC AGENT 09/01/2019 MASTERS ANGELES MILNER Ot Z88 .2 ALLERGY STATUS TO SULFONAMIDES STATUS 09/01/2019 MASTERS ANGELES Ot Z88 .5 ALLERGY STATUS TO NARCOTIC AGENT STATUS 09/01/2019 MASTERS ANGELES MILNER Ot Z88 .8 ALLERGY STATUS TO OTH DRUG/MEDS/BIOL SUB 09/01/2019 MASTERS DOANGELES Ot Z91.040 LATEX ALLERGY STATUS 09/04/2019 MASTERS ANGELES MILNER Ot E03 .9 HYPOTHYROIDISM, UNSPECIFIED 09/04/2019 MASTERS ANGELES MILNER Ot F31 .9 BIPOLAR DISORDER, UNSPECIFIED 09/04/2019 [facility] .9 ANXIETY DISORDER, UNSPECIFIED 09/04/2019 [facility] Ot J43 .9 EMPHYSEMA, UNSPECIFIED 09/04/2019 [facility] Ot R53 .1 WEAKNESS 09/04/2019 [facility] Ot R94.31 ABNORMAL ELECTROCARDIOGRAM [ECG] [EKG] 09/04/2019 [facility] Ot W01.0XXA FALL SAME LEV FROM SLIP/TRIP W/O STRIKE 09/04/2019 [facility] Ot Y92.[address] IN SINGLE-FAMILY (PRIVATE) HO 09/04/2019 [facility] Ot Z79.52 ALF (CURRENT) USE OF SYSTEMIC STER 09/04/2019 [facility] Ot Z82.49 FAMILY HX OF ISCHEM HEART DIS AND OTH DI 09/04/2019 [facility] Z88 .1 ALLERGY STATUS TO OTHER ANTIBIOTIC AGENT 09/04/2019 [facility] Z88 .2 ALLERGY STATUS TO SULFONAMIDES STATUS 09/04/2019 [facility] Z88 .5 ALLERGY STATUS TO NARCOTIC AGENT STATUS 09/04/2019 [facility] Z88 .8 ALLERGY STATUS TO OTH DRUG/MEDS/BIOL SUB 09/04/2019 [facility] Z91.040 LATEX ALLERGY STATUS 10/21/2019 RONNY TITUS APRN Ot F17.200 NICOTINE DEPENDENCE, UNSPECIFIED, UNCOMP 10/21/2019 RONNY TITUS LOCKER ATTENDANT Ot F22 DELUSIONAL DISORDERS 10/21/2019 RONNY TITUS LOCKER ATTENDANT Ot J43.9 EMPHYSEMA, UNSPECIFIED 10/21/2019 RONNY TITUS LOCKER ATTENDANT Ot K22.8 OTHER SPECIFIED DISEASES OF ESOPHAGUS 10/21/2019 RONNY TITUS APRN Ot K83.8 OTHER SPECIFIED DISEASES OF BILIARY TRAC 10/21/2019 RONNY TITUS LOCKER ATTENDANT Ot R91.8 OTHER NONSPECIFIC ABNORMAL FINDING OF CRISTINA 10/21/2019 RONNY TITUS APRN Ot Z90.49 ACQUIRED ABSENCE OF OTHER SPECIFIED PART Procedures Code Description Performed By Per rosa On [id number] RE SPIRATORY VENTILATION, LESS THAN 24 CO [...] g/dL 3.2-4.5 CALCIUM CORRECTED 9.7 mg/dL 8.5-10.1 Capillary blood glucose measurement by g lucometer (mass/volume) - 09/01/19 19:20 Capillary blood glucose measurement by glucometer (mas s/volume) 97 mg/dL 70-110 Complete blood count (CBC) with automate d white blood cell (WBC) differential - 09/01/19 19:24 Blood leukocytes automated count (number/volume) 12.1 10*3/uL 4.3-11.0 Blood erythrocytes automated count (number/volume) 4.11 10*6/uL 4.35-5.85 Venous blood hemoglobin measurement (mass/volume) 12.8 g/dL 11.5-16.0 Blood hematocrit (volume fraction) 40 % 35-52 Automated erythrocyte mean corpuscular volume 97 [ foz_us] 80-99 Automated erythrocyte mean corpuscular h emoglobin (mass per erythrocyte) 31 pg 25-34 Automated erythrocyte mean corpuscular h emoglobin concentration measurement (mass/volume) 32 g/dL 32-36 Automated erythrocyte distribution width ratio 12. 7 % 10.0- 14.5 Automated blood platelet count (count/volume) 290 10*3/uL 130-400 Automated blood platelet mean volume measurement 8.7 [foz_us] 7.4-10.4 Automated blood neutrophils/100 leukocytes 54 % 42-75 Automated blood lymphocytes/100 leukocytes 37 % 12-44 Blood monocytes/100 leukocytes 9 % 0-12 Automated blood eosinophils/100 leukocytes 0 % 0-10 Automated blood basophils/100 leukocytes 0 % 0-10 Blood neutrophils automated count (number/volume) 6.5 10*3 1.8-7.8 Blood lymphocytes automated count (number/volume) 4.5 10*3 1.0-4.0 Blood monocytes automated count (number/volume) 1. 0 10*3 0.0-1.0 Automated eosinophil count 0.0 10*3/uL 0 .0-0.3 Automated blood basophil count (count/volume) 0.0 10*3/uL 0.0-0.1 Whole blood basic metabolic panel - 07/18 19:24 Serum or plasma sodium measurement (moles/volume) 138 mmol/L 135-145 Serum or plasma potassium measurement (moles/volume) 3.5 mmol/L 3.6-5.0 Serum or plasma chloride measurement (moles/volume) 103 mmol/L 98-107 Carbon dioxide 22 mmol/L 21-32 Serum or plasma anion gap determination (moles/volume) 13 mmol/L 5-14 Serum or plasma urea nitrogen measurement (mass/volume ) 9 mg/dL 7-18 Serum or plasma creatinine measurement (mass/volume) 0.90 mg/dL 0.60-1.30 Serum or plasma urea nitrogen/creatinine mass ratio 10 NRG Serum or plasma creatinine measurement w ith calculation of estimated glomerular filtration rate > NRG Serum or plasma glucose measurement (mass/volume) 76 mg/dL 70-105 Serum or plasma calcium measurement (mass/volume) 9.5 mg/dL 8.5-10.1 TROPONIN I FS - 09/01/19 19:24 TROPONIN I FS < 0.30 <0.30 Complete urinalysis with reflex to cultu re - 09/01/19 20:11 Urine color determination YELLOW NRG Urine clarity determination CLEAR NR G Urine pH measurement by test strip 6.0 5-9 Specific gravity of urine by test strip <= 1.016-1.022 Urine protein assay by test strip, semi-quantitative NEGATIVE NEGATIVE Urine glucose detection by automated test strip NE GATIVE NEGATIVE Erythrocytes detection in urine sediment by light micr oscopy 1+ NEGATIVE Urine ketones detection by automated test strip NE GATIVE NEGATIVE Urine nitrite detection by test strip NEGATIVE NEGATIVE Urine total bilirubin detection by test strip NEGA TIVE NEGATIVE Urine urobilinogen measurement by automated test strip (mass/volume) 0.2 mg/dL < = 1.0 Urine leukocyte esterase detection by dipstick NEG ATIVE NEGATIVE Automated urine sediment erythrocyte cou nt by microscopy (number/high power field) [HPF] NRG Automated urine sediment leukocyte count by microscopy (number/high power field) [HPF] NRG Bacteria detection in urine sediment by light microsco py FEW NRG Squamous epithelial cells detection in u rine sediment by light microscopy 5-10 NRG Crystals detection in urine sediment by light microsco py NONE NRG Casts detection in urine sediment by light microscopy NONE NRG Mucus detection in urine sediment by light microscopy NEGATIVE NRG Complete urinalysis with reflex to culture YES NRG Bacterial urine culture - 09/01/19 20:11 Bacterial urine culture NG NRG Encounters ACCT No. Visit Date/Time Discharge Status Pt. Type Provider Facility Loc./Unit Complaint [id number] 11/01/2019 18:40:00 ACT [id number] 08/22/2018 16:20:00 Document Registration [id number] 09/20/2019 11:22:00 23:59:59 CLS Outpatient RONNY TITUS APRN [facility] RAD COPD [id number] 09/01/2019 19:13:00 20:36:00 DIS Emergency ANGELES MASTERS DO [facility] ER FS WEAKNESS [id number] 01/17/2019 13:12:00 23:59:59 CLS Outpatient RONNY TITUS LOCKER ATTENDANT [facility] RAD LUNG MASS [id number] 01/17/2019 10:44:00 23:59:59 CLS Preadmit RONNY TITUS APRN [facility] RAD LUNG MASS [id number] 11/09/2018 12:14:00 13:49:00 DIS Outpatient NABILA MARR MD [facility] ER FS VOMITING/FALL [id number] 03/05/2018 16:23:00 23:59:59 CLS Preadmit RONNY TITUS APRN [facility] RAD LUNG MASS [id number] 02/16/2018 12:15:00 23:59:59 CLS Outpatient RONNY TITUS APRN [facility] RAD COPD [id number] 01/25/2018 18:25:00 12:00:00 DIS Inpatient CORIN SULLIVAN DO, [facility] ICU RESP FAILURE [id number] 11/01/2019 18:59:[address] Emergency JAZZMINE PEREA, YADY Arora [facility] ER FS FELL,LIP LACERATION
[2019-11-01] MEDS ORDERED: LIDOCAINE 2% VISCOUS 15 ML UDC PO ONE (20:30)
[2019-11-01] MEDS ORDERED: TETANUS,DIPTH,PERTUSS P/F (BOOSTRIX) 0.5 ML VIAL IM ONE (20:30)
[2019-11-01] MEDS ORDERED: ACETAMINOPHEN 325 MG TABLET PO ONE (20:30)
--- NOTE | 2019-11-01 21:28 | Diagnostic Imaging Report ---
PROCEDURE: CT head, face, and cervical spine without contrast. TECHNIQUE: Multiple contiguous axial images were obtained through the head, neck, and facial bones without the use of intravenous contrast. Sagittal and coronal reformations through the cervical spine and facial bones were also performed. Auto Exposure Controls were utilized during the CT exam to meet ALARA standards for radiation dose reduction. DATE: November 01, 2019. COMPARISON: CT head and cervical spine September 01, 2019. INDICATION: 69-year-old female, trauma. Head, face and neck pain. Laceration at the level of the lip. FINDINGS: There is a lucent lesion of the left frontal bone which measures 9 mm in size on axial image 28. This is not aggressive in appearance although it does not have a specific imaging appearance. This is unchanged since September 01, 2019. The ventricles and cerebral spinal fluid spaces are of normal size and configuration for the patient's age. There is no mass effect or midline shift. There is no acute intracranial hemorrhage. There is no abnormal extra-axial fluid collection. The temporomandibular joints are normally aligned, bilaterally. The mandible is intact. There is no identified nasal bone fracture. The visualized portions of the paranasal sinuses are well aerated. There is no identified acute maxillofacial bone fracture. The mastoid air cells and middle ears are well-aerated, bilaterally. The globes are intact. There is no retro-orbital hematoma. There is a small focus of soft tissue gas superficial to the maxilla just to the left of midline which could relate to a penetrating type injury. There is no identified radiopaque foreign body. There is no identified facet joint subluxation or dislocation. There is no asymmetric widening of the cervical disc spaces. There is no prevertebral soft tissue swelling. There is mild grade 1 anterolisthesis of C4 on C5. There are mild right facet degenerative changes at C4-C5. There are mild right facet degenerative changes at C5-C6. There is mild grade 1 anterolisthesis of C5 on C6. There is mild disc height loss at C4-C5. There is moderate disc height loss at C5-C6 and moderate to severe disc height loss at C6-C7. CT is limited for assessment of disc pathology as well as additional nonbony causes of pathology in the spinal canal. There do appear to be small posterior disc osteophyte complexes present at C4-C5, C5-C6 and C6-C7. There is no identified acute fracture of the cervical spine. Visualized portions of the lung apices are grossly clear. There are carotid vascular calcifications. IMPRESSION: 1. No identified acute intracranial abnormality. 2. No identified acute maxillofacial bone fracture. 3. Small focus of soft tissue gas superficially at the level of the maxilla just to the left of midline. This could relate to a penetrating type injury. No radiographically visible foreign body. 4. No acute posttraumatic abnormality of the cervical spine. 5. Disc and facet degenerative changes of the cervical spine, as described above. Dictated by: Dictated on workstation # [id number]
--- NOTE | 2019-11-01 22:02 | ED Trauma-Multisystem ---
General Chief Complaint: Trauma-Non Activation Stated Complaint: FELL,LIP LACERATION Nursing Triage Note: Patient has a small laceration to her top lip. She advised family that she hit the back of her head when she fell. Patients family advise that the patient has a hx. of alzheimer's. Family states they were not present at the time of the incident. History of Present Illness Date Seen by Provider: Nov 01, 2019 Time Seen by Provider: 20:00 Initial Comments The patient is a 69-year-old female with a history of mild dementia, not on any blood thinners. She presents for evaluation of a reported ground level fall at home prior to arrival. reports that the patient has had quite a few falls in the past few months. She states that she tripped while walking in the kitchen. She states she struck her head on the ground and notes a laceration to the inside of her upper lip. She denies pain anywhere else on her body. She denies loss of consciousness, nausea or vomiting or amnesia to events. She denies any lightheadedness or dizziness contributory to her fall and states she just missed her footing. She denies fevers, focal weakness, numbness, tingling, neck stiffness/pain/meningismus, vision changes, shortness of breath or chest pain prior to, during or after the fall, flank pain, back pain, abdominal pain, dysuria or hematuria, changes in bowel habits. She is alert and appropriately interactive and moves all extremities equally and vital signs are appropriate here. Patient appears to be in no acute distress. Location Injury Occurred: patients home Allergies and Home Medications Allergies Coded Allergies: Sulfa (Sulfonamide Antibiotics) (Verified Allergy, Unknown, 11/09/18) adhesive tape (Verified Allergy, Unknown, 11/09/18) benztropine (Verified Allergy, Unknown, 11/09/18) cephalexin (Verified Allergy, Unknown, 11/09/18) gabapentin (Verified Allergy, Unknown, 11/09/18) latex (Verified Allergy, Unknown, 11/09/18) medroxyprogesterone (Verified Allergy, Unknown, 11/09/18) nickel (Verified Allergy, Unknown, 11/09/18) nitrofurantoin (Verified Allergy, Unknown, 11/09/18) tramadol (Verified Allergy, Unknown, 11/09/18) Home Medications Cholestyramine (with Sugar) 4 Gm Powd.pack, 4 GM PO BID PRN for DIARRHEA, (Re ported) Clobetasol Propionate 15 Gm Gel..gram., TP UD PRN for SKIN SORE, (Reported) Diazepam 5 Mg Tablet, 5 MG PO Q6H PRN for ANXIETY, (Reported) Estrogens, Conjugated 0.625 Mg Tablet, 0.625 MG PO DAILY, (Reported) Hydrocodone Bit/Acetaminophen 1 Each Tablet, 1 TAB PO TID PRN for PAIN-MODERATE, (Reported) Levothyroxine Sodium 50 Mcg Tablet, 50 MCG PO DAILY, (Reported) Mirtazapine 30 Mg Tablet, 30 MG PO HS, (Reported) Prednisone 10 Mg Tab.ds.pk, 20 MG PO DAILY Prescribed by: CORIN SULLIVAN on 01/26/18 1121 Rosuvastatin Calcium 5 Mg Tablet, 5 MG PO DAILY, (Reported) Trazodone HCl 50 Mg Tablet, 50 MG PO HS, (Reported) Ziprasidone HCl 40 Mg Capsule, 40 MG PO BID, (Reported) Patient Home Medication List Home Medication List Reviewed: Yes Review of Systems Review of Systems Constitutional: see HPI All Other Systems Reviewed Negative Unless Noted: Yes Past Eccencj-Bycujl-Vystbj Hx Past Med/Social Hx: Reviewed Nursing Past Med/Soc Hx Patient Social History Alcohol Use: Denies Use Recreational Drug Use: Yes Drug of Choice: Marijuana Smoking Status: Current Everyday Smoker Type Used: Cigarettes 2nd Hand Smoke Exposure: No Recent Foreign Travel: No Contact w/Someone Who Travel: No Recent Infectious Disease Expo: No Recent Hopitalizations: No Seasonal Allergies Seasonal Allergies: No Past Medical History Surgeries: Yes Gallbladder, Hysterectomy Respiratory: Yes Emphysema Cardiac: No Neurological: Yes (narcolepsy) Dementia : No Genitourinary: No Gastrointestinal: Yes Irritable Bowel Musculoskeletal: No Endocrine: Yes Hypothyroidsim HEENT: No Cancer: No Psychosocial: Yes ADD/ADHD, Anxiety, Bipolar, Depression Integumentary: No Family Medical History Reviewed Nursing Family Hx Hypertension Physical Exam Vital Signs Vital Signs - First Documented Height, Weight, BMI Height: 5'3.00" Weight: 115lbs. 0.0oz. 52.006677bh; 26.00 BMI Method:Stated General Appearance: No Apparent Distress This is an older female appearing nontoxic and in no acute distress. Head is normocephalic and with a ~2.5cm subcutaneous hemostatic laceration to the mucosal surface of her inner upper lip. There is an associated abrasion externally. Does not appear to be a hannah through and through puncture. No instability of the midface. No malocclusion. No signs basilar fracture. Neck is supple and nontender. Oropharynx is moist. Lungs are clear to auscultation at all stations. There is a normal S1 and S2 without rubs or gallops and capillary refill is appropriate, less than 2 seconds globally. Abdomen is soft, nontender and nondistended. Skin is warm and dry without cyanosis, clubbing or edema. Psychiatrically, the patient demonstrates appropriate mood and affect and is alert. Neurologically, cranial nerves II through XII are intact and there are no lateralizing deficits noted. Speech is normal. Language is normal. Coordination is normal. There is no dysmetria with finger to nose bilaterally. Strength is 5 out of 5 in all joints of bilateral upper and lower extremities. No drift with any extremities held off the bed. Sensation is intact to light touch in all extremities. Ambulation testing is deferred. Patient is alert and oriented. Procedures/Interventions Date of ETT Placement: Jan 25, 2018 Progress/Results/Core Measures Results/Orders My Orders Orders - YADY DOVER MD Cervical Collar: Apply (11/01/19 20:22) Acetaminophen Tablet/Caplet (Tylenol T (11/01/19 20:30) Dipht,Pertuss(Acell),Tet Adult (Boostrix (11/01/19 20:30) Lidocaine 2% Viscous 15 Ml (Xylocaine Vi (11/01/19 20:30) Ct Head/Face/Cervical Wo (11/01/19 20:24) Medications Given in ED Current Medications Medications Dose Ordered Sig/Qiana Route Start Time Stop Time Status Last Admin Dose Admin Acetaminophen 975 mg ONCE ONCE PO 11/01/19 20:30 11/01/19 20:31 DC 11/01/19 20:37 975 MG Diphtheria/ Tetanus/Acell Pertussis 0.5 ml ONCE ONCE IM 11/01/19 20:30 11/01/19 20:31 DC 11/01/19 20:36 0.5 ML Lidocaine HCl 5 ml ONCE ONCE PO 11/01/19 20:30 11/01/19 20:31 DC 11/01/19 20:38 5 ML Vital Signs/I&O 11/01/19 11/01/19 20:04 20:04 Temp 35.7 35.7 Pulse 81 81 Resp 16 14 B/P (MAP) 108/62 (77) 108/62 (77) Pulse Ox 95 98 O2 Delivery Room Air Room Air Blood Pressure Mean: 77 Progress Progress Note : Time: 22:02 Progress Note Well-appearing 69-year-old female with mild dementia who presents after a ground-level fall with head strike at home. Alert and oriented consistent with her typical baseline. Reporting only discomfort to the inside of her upper lip where a laceration is noted. I discussed options for laceration management with the patient and her . Options discussed included primary repair with absorbable suture versus allowing the wound to heal by secondary intention and providing medication to numb the area. Patient would prefer to avoid sutures at this time. is in agreement. We'll check CTs of head and maxillofacial region and cervical spine after c-collar placement and will give medication for discomfort as noted and will then reevaluate. If workup is reassuring, anticipate discharge home to use the patient's already prescribed home pain medication to follow up very closely with primary care immediately after the weekend. Patient and her understand agree with this plan of care. Will update tetanus. 2136: Workup unremarkable and reassuring. Advanced imaging unrevealing of any evidence of acute process aside from the mucosal laceration previously identified clinically. We'll discharge with viscous lidocaine for use prior to m eals. Patient is to use her home hydrocodone for pain. Counseled her to use her walker and walk slowly and carefully with assistance to avoid falls. Patient and her agree that if she feels worse is that of better or develops other new symptoms of concern that she will need to return to the emergency department immediately for reevaluation. All questions are answered. Diagnostic Imaging Comments CT HEAD/FACE/CERVICAL WO PROCEDURE: CT head, face, and cervical spine without contrast. TECHNIQUE: Multiple contiguous axial images were obtained through the head, neck, and facial bones without the use of intravenous contrast. Sagittal and coronal reformations through the cervical spine and facial bones were also performed. Auto Exposure Controls were utilized during the CT exam to meet ALARA standards for radiation dose reduction. DATE: November 01, 2019. COMPARISON: CT head and cervical spine September 01, 2019. INDICATION: 69-year-old female, trauma. Head, face and neck pain. Laceration at the level of the lip. FINDINGS: There is a lucent lesion of the left frontal bone which measures 9 mm in size on axial image 28. This is not aggressive in appearance although it does not have a specific imaging appearance. This is unchanged since September 01, 2019. The ventricles and cerebral spinal fluid spaces are of normal size and configuration for the patient's age. There is no mass effect or midline shift. There is no acute intracranial hemorrhage. There is no abnormal extra-axial fluid collection. The temporomandibular joints are normally aligned, bilaterally. The mandible is intact. There is no identified nasal bone fracture. The visualized portions of the paranasal sinuses are well aerated. There is no identified acute maxillofacial bone fracture. The mastoid air cells and middle ears are well-aerated, bilaterally. The globes are intact. There is no retro-orbital hematoma. There is a small focus of soft tissue gas superficial to the maxilla just to the left of midline which could relate to a penetrating type injury. There is no identified radiopaque foreign body. There is no identified facet joint subluxation or dislocation. There is no asymmetric widening of the cervical disc spaces. There is no prevertebral soft tissue swelling. There is mild grade 1 anterolisthesis of C4 on C5. There are mild right facet degenerative changes at C4-C5. There are mild right facet degenerative changes at C5-C6. There is mild grade 1 anterolisthesis of C5 on C6. There is mild disc height loss at C4-C5. There is moderate disc height loss at C5-C6 and moderate to severe disc height loss at C6-C7. CT is limited for assessment of disc pathology as well as additional nonbony causes of pathology in the spinal canal. There do appear to be small posterior disc osteophyte complexes present at C4-C5, C5-C6 and C6-C7. There is no identified acute fracture of the cervical spine. Visualized portions of the lung apices are grossly clear. There are carotid vascular calcifications. IMPRESSION: 1. No identified acute intracranial abnormality. 2. No identified acute maxillofacial bone fracture. 3. Small focus of soft tissue gas superficially at the level of the maxilla just to the left of midline. This could relate to a penetrating type injury. No radiographically visible foreign body. 4. No acute posttraumatic abnormality of the cervical spine. 5. Disc and facet degenerative changes of the cervical spine, as described above. Dictated by: Dictated on workstation # [id number] Departure Impression Primary Impression: Fall from slip, trip, or stumble Qualified Codes: W01.0XXA - Fall on same level from slipping, tripping and stumbling without subsequent striking against object, initial encounter Additional Impression: Laceration of lip Qualified Codes: S01.511A - Laceration without foreign body of lip, initial encounter Disposition: HOME, SELF-CARE Condition: Improved Departure-Patient Inst. Referrals: DENA WORKMAN MD (PCP/Family) Primary Care Physician Patient Instructions: Mouth and Dental Injuries in Adults, Preventing Falls Add. Discharge Instructions: Follow-up very closely with Dr. Workman immediately after the weekend for a reevaluation of symptoms and a discussion of next steps in care. Use great care while walking to avoid falls; use your assistive devices as they're prescribed and don't hesitate asked for assistance in getting up and moving around safely. Take your home medication as prescribed for pain. You may use the viscous lidocaine before meals on your injured mouth area. Return to the emergency department right away with worsening symptoms of any kind or with any other new symptoms of concern. Scripts [viscous lidocaine 2%] No Conflict Check 5 ML BU QIDACHS for mouth pain, #50 ML Prov: YADY DOVER MD 11/01/19 YADY DOVER MD Nov 01, 2019 22:02
[2019-11-01] MEDS ORDERED: viscous lidocaine 2% BU (22:09)
[2019-11-01 22:25] VITALS: BP 152/79
== END 2019-11-01 22:43 | disposition home or self-care (01) ==
LOC: EDUNIT# 18:57 → ER FS 18:59
DX: S01.511A Laceration without foreign body of lip, initial encounter (principal); Z91.81 History of falling; G30.9 Alzheimer's disease, unspecified; F02.80 Dementia in other diseases classified elsewhere, unspecified severity, without behavioral disturbance, psychotic disturbance, mood disturbance, and anxiety; F17.210 Nicotine dependence, cigarettes, uncomplicated; J43.9 Emphysema, unspecified; E03.9 Hypothyroidism, unspecified; F41.9 Anxiety disorder, unspecified; F90.9 Attention-deficit hyperactivity disorder, unspecified type; F31.9 Bipolar disorder, unspecified; Z23 Encounter for immunization; W01.0XXA Fall on same level from slipping, tripping and stumbling without subsequent striking against object, initial encounter; Y92.000 Kitchen of unspecified non-institutional (private) residence as the place of occurrence of the external cause
CPT/HCPCS: 70450; 70486; 72125; 90471; 90715

== ENCOUNTER 2021-10-20 09:29 | Emergency (ER) | payer MEDICARE, OTHER ==
[~2021-10-20 09:29] MED LIST changes: +MIRT-69 PO; -MIRT30TA6 PO; +viscous lidocaine 2% BU
[2021-10-20 09:48] LABS: BASOPHILS % (AUTO) 0 % (0-10); EOSINOPHILS # (AUTO) 0.1 10^3/uL (0.0-0.3); EOSINOPHILS % (AUTO) 1 % (0-10); HEMATOCRIT 40 % (35-52); HEMOGLOBIN 12.9 g/dL (11.5-16.0); LYMPHOCYTES # (AUTO) 2.2 10^3/uL (1.0-4.0); LYMPHOCYTES % (AUTO) 22 % (12-44); MEAN CORPUSCULAR HEMOGLOBIN 31 pg (25-34); MEAN CORPUSCULAR HGB CONC 33 g/dL (32-36); MEAN CORPUSCULAR VOLUME 95 fL (80-99); MEAN PLATELET VOLUME 9.3 fL (9.0-12.2); MONOCYTES # (AUTO) 0.5 10^3/uL (0.0-1.0); MONOCYTES % (AUTO) 5 % (0-12); NEUTROPHILS # (AUTO) 7.4 10^3/uL (1.8-7.8); NEUTROPHILS % (AUTO) 73 % (42-75); PLATELET COUNT 245 10^3/uL (130-400); WHITE BLOOD COUNT 10.2 10^3/uL (4.3-11.0)
--- NOTE | 2021-10-20 09:53 | ED General ---
General Stated Complaint: BENADRYL OD Source of Information: Patient, EMS History of Present Illness Date Seen by Provider: Oct 20, 2021 Time Seen by Provider: 09:29 Initial Comments 71-year-old female presenting with EMS from home. She had itching, which is chronic for her, and she wanted it to go away so her had thrown a bottle of Benadryl at her and she took 15 to 20 pills. She states that she was not trying to harm her self or hurt her self she just have one of the itching to stop and was upset with her so she just took what was left in the Benadryl bottle. She is unsure of the exact number of pills that she took. She denies having any drowsiness, shortness of breath, chest pain, nausea, vomiting, diarrhea. Timing/Duration: 1/2 Hour Associated Systoms: No Chest Pain, No Cough, No Diaphoresis, No Fever/Chills, No Headaches, No Loss of Appetite, No Malaise, No Nausea/Vomiting, No Rash, No Seizure, No Shortness of Air, No Syncope, No Weakness Allergies and Home Medications Allergies Coded Allergies: Sulfa (Sulfonamide Antibiotics) (Verified Allergy, Unknown, 11/09/18) adhesive tape (Verified Allergy, Unknown, 11/09/18) benztropine (Verified Allergy, Unknown, 11/09/18) cephalexin (Verified Allergy, Unknown, 11/09/18) gabapentin (Verified Allergy, Unknown, 11/09/18) latex (Verified Allergy, Unknown, 11/09/18) medroxyprogesterone (Verified Allergy, Unknown, 11/09/18) nickel (Verified Allergy, Unknown, 11/09/18) nitrofurantoin (Verified Allergy, Unknown, 11/09/18) tramadol (Verified Allergy, Unknown, 11/09/18) Patient Home Medication List Home Medication List Reviewed: Yes Cholestyramine (with Sugar) (Questran Packet) 4 Gm Powd.pack, 4 GM PO BID PRN for DIARRHEA, (Reported) Entered as Reported by: CARLO WRIGHT on 01/26/18 0910 Clobetasol Propionate (Clobetasol Propionate) 15 Gm Gel..gram., TP UD PRN for SKIN SORE, (Reported) Entered as Reported by: CARLO WRIGHT on 01/26/18909 Diazepam (Diazepam) 5 Mg Tablet, 5 MG PO Q6H PRN for ANXIETY, (Reported) Entered as Reported by: CARLO WRIGHT on 01/26/18904 Estrogens, Conjugated (Premarin) 0.625 Mg Tablet, 0.625 MG PO DAILY, (Reported) Entered as Reported by: CARLO WRIGHT on 01/26/18904 Hydrocodone Bit/Acetaminophen (HYDROcodone/APAP 10/325 TABLET) 1 Each Tablet, 1 TAB PO TID PRN for PAIN-MODERATE, (Reported) Entered as Reported by: CARLO WRIGHT on 01/26/18904 Levothyroxine Sodium (Levothyroxine Sodium) 50 Mcg Tablet, 50 MCG PO DAILY, (Reported) Entered as Reported by: CARLO WRIGHT on 01/26/18904 Mirtazapine (Mirtazapine) 30 Mg Tablet, 30 MG PO HS, (Reported) Entered as Reported by: CARLO WRIGHT on 01/26/18904 Prednisone (Prednisone) 10 Mg Tab.ds.pk, 20 MG PO DAILY Prescribed by: CORIN SULLIVAN on 01/26/18 1121 Rosuvastatin Calcium (Rosuvastatin Calcium) 5 Mg Tablet, 5 MG PO DAILY, (Reported) Entered as Reported by: CARLO WRIGHT on 01/26/18904 Trazodone HCl (Trazodone HCl) 50 Mg Tablet, 50 MG PO HS, (Reported) Entered as Reported by: CARLO WRIGHT on 01/26/18904 Ziprasidone HCl (Ziprasidone HCl) 40 Mg Capsule, 40 MG PO BID, (Reported) Entered as Reported by: CARLO WRIGHT on 01/26/18904 [viscous lidocaine 2%] , 5 ML BU QIDACHS Prescribed by: YADY DOVER on 11/01/19 6864 Review of Systems Review of Systems Constitutional: No chills, No dizziness, No fever EENTM: no symptoms reported Respiratory: No short of breath Cardiovascular: No chest pain Gastrointestinal: No nausea, No vomiting Genitourinary: No dysuria Musculoskeletal: no symptoms reported Skin: other (chronic itching) Psychiatric/Neurological: No Symptoms Reported Hematologic/Lymphatic: No Symptoms Reported Past [id number] Hx Patient Social History Tobacco Use?: Yes Seasonal Allergies Seasonal Allergies: No Past Medical History Surgeries: Yes Gallbladder, Hysterectomy Respiratory: Yes Emphysema Cardiac: No Neurological: Yes (narcolepsy) Dementia Genitourinary: No Gastrointestinal: Yes Irritable Bowel Musculoskeletal: No Endocrine: Yes Hypothyroidsim HEENT: No Cancer: No Psychosocial: Yes ADD/ADHD, Anxiety, Bipolar, Depression Integumentary: No Family Medical History Hypertension Physical Exam Vital Signs Vital Signs - First Documented 10/20/21 09:49 Temp 35.7 Pulse 85 Resp 18 B/P (MAP) 148/85 (106) Pulse Ox 96 O2 Delivery Room Air Capillary Refill : Height, Weight, BMI Height: 5'3.00" Weight: 115lbs. 0.0oz. [id number]; 26.00 BMI Method:Stated General Appearance: No Apparent Distress HEENT: PERRL/EOMI, Pharynx Normal Neck: Full Range of Motion, Normal Inspection, Non Tender, Supple Respiratory: Chest Non Tender, Lungs Clear, Normal Breath Sounds, No Accessory Muscle Use, No Respiratory Distress Cardiovascular: Regular Rate, Rhythm, Normal Peripheral Pulses Gastrointestinal: Normal Bowel Sounds, No Pulsatile Mass, Non Tender, Soft Rectal: Deferred Extremity: Normal Capillary Refill, Normal Inspection, No Pedal Edema Neurologic/Psychiatric: Alert, Oriented x3, Normal Mood/Affect, office associate II-XII Norm as Tested Skin: Normal Color, Warm/Dry Procedures/Interventions Date of ETT Placement: Jan 25, 2018 Progress/Results/Core Measures Suspected Sepsis SIRS Temperature: Pulse: Respiratory Rate: Laboratory Tests 10/20/21 09:45: White Blood Count 10.2 Blood Pressure / Mean: Laboratory Tests 10/20/21 09:45: Creatinine 0.91, Platelet Count 245, Total Bilirubin 0.3 Results/Orders Lab Results Laboratory Tests Test 10/20/21 09:45 10/20/21 10:55 Range/Units White Blood Count 10.2 4.3-11.0 10^3/uL Red Blood Count 4.16 3.80-5.11 10^6/uL Hemoglobin 12.9 11.5-16.0 g/dL Hematocrit 40 35-52 % Mean Corpuscular Volume 95 80-99 fL Mean Corpuscular Hemoglobin 31 25-34 pg Mean Corpuscular Hemoglobin Concent 33 32-36 g/dL Red Cell Distribution Width 12.1 10.0-14.5 % Platelet Count 245 130-400 10^3/uL Mean Platelet Volume 9.3 9.0-12.2 fL Immature Granulocyte % (Auto) 0 % Neutrophils (%) (Auto) 73 42-75 % Lymphocytes (%) (Auto) 22 12-44 % Monocytes (%) (Auto) 5 0-12 % Eosinophils (%) (Auto) 1 0-10 % Basophils (%) (Auto) 0 0-10 % Neutrophils # (Auto) 7.4 1.8-7.8 10^3/uL Lymphocytes # (Auto) 2.2 1.0-4.0 10^3/uL Monocytes # (Auto) 0.5 0.0-1.0 10^3/uL Eosinophils # (Auto) 0.1 0.0-0.3 10^3/uL Basophils # (Auto) 0.0 0.0-0.1 10^3/uL Immature Granulocyte # (Auto) 0.0 0.0-0.1 10^3/uL Sodium Level 137 135-145 MMOL/L Potassium Level 4.6 3.6-5.0 MMOL/L Chloride Level 105 98-107 MMOL/L Carbon Dioxide Level 23 21-32 MMOL/L Anion Gap 9 5-14 MMOL/L Blood Urea Nitrogen 15 7-18 MG/DL Creatinine 0.91 0.60-1.30 MG/DL Estimat Glomerular Filtration Rate 68 BUN/Creatinine Ratio 16 Glucose Level 121 H 70-105 MG/DL Calcium Level 9.9 8.5-10.1 MG/DL Corrected Calcium 9.9 8.5-10.1 MG/DL Total Bilirubin 0.3 0.1-1.0 MG/DL Aspartate Amino Transf (AST/SGOT) 21 5-34 U/L Alanine Aminotransferase (ALT/SGPT) 12 0-55 U/L Alkaline Phosphatase 106 40-136 U/L Total Protein 6.6 6.4-8.2 GM/DL Albumin 4.0 3.2-4.5 GM/DL Salicylates Level < 0.3 L 5.0-20.0 MG/DL Acetaminophen Level < 10 L 10-30 UG/ML Serum Alcohol < 10 <10 MG/DL Urine Color YELLOW Urine Clarity CLEAR Urine pH 7.0 5-9 Urine Specific [place] 1.010 L 1.016-1.022 Urine Protein NEGATIVE NEGATIVE Urine Glucose (UA) NEGATIVE NEGATIVE Urine Ketones NEGATIVE NEGATIVE Urine Nitrite NEGATIVE NEGATIVE Urine Bilirubin NEGATIVE NEGATIVE Urine Urobilinogen 0.2 < = 1.0 MG/DL Urine Leukocyte Esterase NEGATIVE NEGATIVE Urine RBC (Auto) 1+ H NEGATIVE Urine RBC 2-5 H /HPF Urine WBC NONE /HPF Urine Squamous Epithelial Cells 0-2 /HPF Urine Crystals NONE /LPF Urine Bacteria NEGATIVE /HPF Urine Casts NONE /LPF Urine Mucus NEGATIVE /LPF Urine Culture Indicated NO Urine Opiates Screen POSITIVE H NEGATIVE Urine Oxycodone Screen NEGATIVE NEGATIVE Urine Methadone Screen NEGATIVE NEGATIVE Urine Propoxyphene Screen NEGATIVE NEGATIVE Urine Barbiturates Screen NEGATIVE NEGATIVE Ur Tricyclic Antidepressants Screen NEGATIVE NEGATIVE Urine Phencyclidine Screen NEGATIVE NEGATIVE Urine Amphetamines Screen NEGATIVE NEGATIVE Urine Methamphetamines Screen NEGATIVE NEGATIVE Urine Benzodiazepines Screen POSITIVE H NEGATIVE Urine Cocaine Screen NEGATIVE NEGATIVE Urine Cannabinoids Screen NEGATIVE NEGATIVE My Orders Orders - CHEPE PARMAR MD Ua Culture If Indicated (10/20/21 09:33) Cbc With Automated Diff (10/20/21 09:33) Comprehensive Metabolic Panel (10/20/21 09:33) Alcohol (10/20/21 09:33) Drug Screen Stat (Urine) (10/20/21 09:33) Acetaminophen (10/20/21 09:33) Salicylate (10/20/21 09:33) Ekg Tracing (10/20/21 09:33) Ed Iv/Invasive Line Start (10/20/21 09:33) Monitor-Rhythm Ecg Trace Only (10/20/21 09:33) Ekg Tracing (10/20/21 13:49) Vital Signs/I&O 10/20/21 10/20/21 09:49 14:37 Temp 35.7 Pulse 85 87 Resp 18 14 B/P (MAP) 148/85 (106) 165/95 Pulse Ox 96 O2 Delivery Room Air Capillary Refill : Progress Note #1: Progress Note 0995 discussed with MARC Toscano, at the [facility]. She advised monitoring the patient for 6 hours postingestion and obtain electrocardiogram. Watch for prolonged QRS greater than 100. If that develops then she would need 2 to 3 mEq/kg of bicarb bolus and recheck of the EKG 20 to 30 minutes after the medication. Otherwise monitor for signs of arrhythmia or seizure activity. Supportive care and check basic tox screens to make sure there is not anything else in her system. Progress Note #2: Time: 10:19 Progress Note Electrocardiogram shows QRS complex of 100 ms. This is the same as it was 2 years ago. No acute significant abnormality on the electrocardiogram. Patient awake and alert and acting appropriate in the room. Progress Note #3: Time: 10:49 Progress Note Patient is medically clear and stable with no acute significant abnormality on CBC, chemistry, alcohol, acetaminophen, salicylate screen. She just now provided a urine specimen to check for signs of infection or drugs. Will have mental health screener speak with her to clear her for going home. Plan to obtain a repeat EKG prior to discharge. Progress Note #4: Time: 14:05 Progress Note Patient remains hemodynamically stable. She has no seizure activity or tachycardia. Her repeat electrocardiogram shows sinus rhythm with a heart rate of 85 bpm and QRS duration of 94 ms. Awaiting mental health screening since she had taken several pills as a response to being mad. Progress Note #5: Time: 14:52 Progress Note Patient is medically clear and stable from her accidental overdose of Benadryl. She was discharged on a safety plan by [facility]. Counseled to not take more medicine than is prescribed or than is listed on the side of the bottle. ECG Initial ECG Impression Date: Oct 20, 2021 Initial ECG Impression Time: 10:12 Initial ECG Rate: 82 Initial ECG Rhythm: Normal Sinus Initial ECG Comparisson: Changed (Improved QT interval from August 2019) Comment Normal sinus rhythm with a heart rate of 82 bpm. ND interval 124 ms. Borderline left axis deviation. Nonspecific global T wave flattening. QRS complex 100 ms. QT interval 372 ms with a QTc interval 411 ms. There is no acute ST elevation. Overall appears similar to tracing from 2019 other than her QT interval is not prolonged as it was 2 years ago. EKG : EKG Time: 14:02 Rate: 85 Rhythm: Normal Sinus ECG Comparisson: Unchanged Comment Sinus rhythm with a heart rate of 85 bpm. Borderline left axis deviation. QRS duration of 94 ms. QT interval 377 ms with a QTc interval 419 ms. She has no acute ST elevation. Overall appears similar to prior tracing with improved QRS duration. Departure Impression Primary Impression: Accidental diphenhydramine overdose Qualified Codes: T45.0X1A - Poisoning by antiallergic and antiemetic drugs, accidental (unintentional), initial encounter Disposition: 01 HOME, SELF-CARE Condition: Stable Departure-Patient Inst. Decision time for Depature: 14:30 Referrals: DENA MADERA MD (PCP) Primary Care Physician Patient Instructions: Accidental Overdose, Adult ED Add. Discharge Instructions: Do not take more medicine than is prescribed or directed on side of bottle. Follow up with your primary provider for continued concerns. CHEPE PARMAR MD Oct 20, 2021 09:53
[2021-10-20 10:21] LABS: ALANINE AMINOTRANSFERASE 12 U/L (0-55); ALKALINE PHOSPHATASE 106 U/L (40-136); BILIRUBIN,TOTAL 0.3 MG/DL (0.1-1.0); BUN/CREATININE RATIO 16; CALCIUM 9.9 MG/DL (8.5-10.1); CARBON DIOXIDE 23 MMOL/L (21-32); CHLORIDE 105 MMOL/L (98-107); CREATININE SERUM 0.91 MG/DL (0.60-1.30); GFR ESTIMATED 68; GLUCOSE 121 MG/DL (70-105); POTASSIUM 4.6 MMOL/L (3.6-5.0); SODIUM 137 MMOL/L (135-145); TOTAL PROTEIN 6.6 GM/DL (6.4-8.2)
[2021-10-20 10:22] LABS: ACETAMINOPHEN < 10 UG/ML (10-30); SALICYLATE < 0.3 MG/DL (5.0-20.0)
[2021-10-20 11:06] LABS: BILIRUBIN,URINE NEGATIVE (NEGATIVE); CLARITY,URINE CLEAR; COLOR,URINE YELLOW; GLUCOSE, URINE (UA) NEGATIVE (NEGATIVE); KETONES,URINE NEGATIVE (NEGATIVE); LEUKOCYTE ESTERASE ,URINE NEGATIVE (NEGATIVE); NITRITE,URINE NEGATIVE (NEGATIVE); PROTEIN,URINE NEGATIVE (NEGATIVE)
[2021-10-20 11:12] LABS: BACTERIA,URINE NEGATIVE /HPF; SQUAMOUS EPITHELIAL CELL,UR 0-2 /HPF
[2021-10-20 11:15] LABS: AMPHETAMINE SCREEN, URINE NEGATIVE (NEGATIVE); BARBITURATE SCREEN URINE NEGATIVE (NEGATIVE); BENZODIAZEPINES SCREEN URINE POSITIVE (NEGATIVE); CANNABINOID SCREEN, URINE NEGATIVE (NEGATIVE); COCAINE SCREEN URINE NEGATIVE (NEGATIVE); METHADONE STAT NEGATIVE (NEGATIVE); OPIATE SCREEN URINE POSITIVE (NEGATIVE); OXYCODONE STAT NEGATIVE (NEGATIVE); PROPOXYPHENE STAT NEGATIVE (NEGATIVE); TRICYCLIC ANTIDEPRESSANTS SCRE NEGATIVE (NEGATIVE)
[2021-10-20 14:37] VITALS: BP 165/95
== END 2021-10-20 14:30 | disposition home or self-care (01) ==
LOC: EDUNIT# 09:29 → ER FS 09:41
DX: T45.0X1A Poisoning by antiallergic and antiemetic drugs, accidental (unintentional), initial encounter (principal)
CPT/HCPCS: 36415; 80053; 80306; 81000; 85025; 93005; 99284; G0480 ×3; 80320; 80329

== ENCOUNTER 2023-02-02 14:56 | Emergency (ER) | payer MEDICARE, OTHER ==
[~2023-02-02] VITALS: Ht 160 cm; Wt 72.0 kg
[2023-02-02] MEDS ORDERED: ONDANSETRON INJECTION 4 MG/2 ML (SDV) IVP ONE (15:15)
[2023-02-02 15:27] LABS: BASOPHILS % (AUTO) 0 % (0-10); EOSINOPHILS # (AUTO) 0.1 10^3/uL (0.0-0.3); EOSINOPHILS % (AUTO) 1 % (0-10); HEMATOCRIT 42 % (35-52); LYMPHOCYTES # (AUTO) 1.9 10^3/uL (1.0-4.0); LYMPHOCYTES % (AUTO) 17 % (12-44); MEAN CORPUSCULAR HEMOGLOBIN 30 pg (25-34); MEAN CORPUSCULAR HGB CONC 34 g/dL (32-36); MEAN CORPUSCULAR VOLUME 90 fL (80-99); MEAN PLATELET VOLUME 8.7 fL (9.0-12.2); MONOCYTES # (AUTO) 0.5 10^3/uL (0.0-1.0); MONOCYTES % (AUTO) 5 % (0-12); NEUTROPHILS # (AUTO) 8.6 10^3/uL (1.8-7.8); NEUTROPHILS % (AUTO) 77 % (42-75); PLATELET COUNT 333 10^3/uL (130-400); WHITE BLOOD COUNT 11.1 10^3/uL (4.3-11.0)
--- NOTE | 2023-02-02 15:50 | Diagnostic Imaging Report ---
EXAMINATION: Chest, one view. HISTORY: Chills and tachycardia. COMPARISON: 01/26/2018. FINDINGS: The lungs are clear without edema or pneumonia. No pleural effusion or pneumothorax. Heart size is normal. IMPRESSION: 1. Clear lungs. Dictated by: Dictated on workstation # [id number]
--- NOTE | 2023-02-02 16:06 | Diagnostic Imaging Report ---
PROCEDURE: CT head and CT cervical spine without contrast. TECHNIQUE: Multiple contiguous axial images were obtained through the brain and cervical spine without the use of intravenous contrast. Sagittal and coronal reformations through the cervical spine were then performed. Auto Exposure Controls were utilized during the CT exam to meet ALARA standards for radiation dose reduction. INDICATION: Fall with head and neck injury. Comparison is made to study of 11/01/2019. CT HEAD: FINDINGS: Ventricles and sulci are prominent; however, no hemorrhage is identified. There is no abnormal mass effect or shift of midline structures. Calvarium is intact, and the visualized paranasal sinuses are clear. IMPRESSION: No evidence of acute intracranial abnormality. CT CERVICAL SPINE: FINDINGS: There is reversal of the cervical lordosis with worsening of advanced disc space narrowing at the C4-C5, C5-C6, and C6-C7 levels. Grade 1 anterolisthesis of C4 on C5 is stable. There is no evidence of acute fracture or subluxation. IMPRESSION: Worsening cervical spondylosis without acute cervical spinal abnormality identified. Dictated by: Dictated on workstation # [id number]
[2023-02-02 16:17] LABS: ALKALINE PHOSPHATASE 90 U/L (40-136); BILIRUBIN,TOTAL 0.6 MG/DL (0.1-1.0); BUN/CREATININE RATIO 12; CALCIUM 11.1 MG/DL (8.5-10.1); CARBON DIOXIDE 23 MMOL/L (21-32); CHLORIDE 97 MMOL/L (98-107); CREATININE SERUM 1.05 MG/DL (0.60-1.30); GFR ESTIMATED 57; GLUCOSE 117 MG/DL (70-105); MAGNESIUM 2.2 MG/DL (1.6-2.4); SODIUM 134 MMOL/L (135-145)
[2023-02-02 16:18] LABS: ALANINE AMINOTRANSFERASE 47 U/L (0-55); ALBUMIN 4.8 GM/DL (3.2-4.5); LIPASE 25 U/L (8-78); POTASSIUM 4.7 MMOL/L (3.6-5.0); TOTAL PROTEIN 7.7 GM/DL (6.4-8.2)
--- NOTE | 2023-02-02 16:31 | ED General ---
General Chief Complaint: Trauma-Non Activation Stated Complaint: [facility] Nursing Triage Note: [facility] WITH COMPLAINTS OF FALL LAST NIGHT. PT STATES SHE HIT HER RIGHT ARM AND HEAD. DENIES LOC. ABRASION, BRUISING, AND SKIN TEAR NOTED TO RIGHT UPPER ARM. PT HAS HAD N/V SINCE ET DENIES NAUSEA AT THIS TIME. [facility] REPORTS TACHYCARDIA. Source of Information: Patient, Family Exam Limitations: Other (Dementia) History of Present Illness Date Seen by Provider: Feb 02, 2023 Time Seen by Provider: 15:02 Initial Comments This 72-year-old woman is brought to the emergency room by her and son at the direction of the [facility] for reasons of tachycardia and recent fall. Patient fell last night near the bed and struck her right arm. She has a skin tear on the distal right upper arm with surrounding bruising. She does not recall if she hit her head. She denies head or neck pain or tenderness at this time. Patient is a compromised historian due to dementia. Her family provides much of the history. Family reports her cognition is at baseline. There was no loss of consciousness with the fall. Patient does not recall having any prodrome such as chest pain, lightheadedness, or shortness of breath. She reports feeling generally weak at this time. She has had a fine tremor for the past 2 days which is not normal for her. She vomited this morning. The [facility] was apparently concerned also that she had a mild sinus tachycardia. They present an ECG from the clinic demonstrating sinus tachycardia with heart rate of 107. There was no other arrhythmia or evidence of ischemia. Allergies and Home Medications Allergies Coded Allergies: Sulfa (Sulfonamide Antibiotics) (Verified Allergy, Unknown, 11/09/18) adhesive tape (Verified Allergy, Unknown, 11/09/18) benztropine (Verified Allergy, Unknown, 11/09/18) cephalexin (Verified Allergy, Unknown, 11/09/18) gabapentin (Verified Allergy, Unknown, 11/09/18) latex (Verified Allergy, Unknown, 11/09/18) medroxyprogesterone (Verified Allergy, Unknown, 11/09/18) nickel (Verified Allergy, Unknown, 11/09/18) nitrofurantoin (Verified Allergy, Unknown, 11/09/18) tramadol (Verified Allergy, Unknown, 11/09/18) Patient Home Medication List Home Medication List Reviewed: Yes Cholestyramine (with Sugar) (Questran Packet) 4 Gm Powd.pack, 4 GM PO BID PRN for DIARRHEA, (Reported) Entered as Reported by: CARLO WRIGHT on 01/26/18909 Clobetasol Propionate (Clobetasol Propionate) 15 Gm Gel..gram., TP UD PRN for SKIN SORE, (Reported) Entered as Reported by: CARLO WRIGHT on 01/26/18909 Diazepam (Diazepam) 5 Mg Tablet, 5 MG PO Q6H PRN for ANXIETY, (Reported) Entered as Reported by: CARLO WRIGHT on 01/26/18904 Estrogens, Conjugated (Premarin) 0.625 Mg Tablet, 0.625 MG PO DAILY, (Reported) Entered as Reported by: CARLO WRIGHT on 01/26/18904 Fluconazole (Diflucan) 150 Mg Tablet, 150 MG PO UD Prescribed by: RANJAN SWAN on 02/02/23 173 Hydrocodone Bit/Acetaminophen (HYDROcodone/APAP 10/325 TABLET) 1 Each Tablet, 1 TAB PO TID PRN for PAIN-MODERATE, (Reported) Entered as Reported by: CARLO WRIGHT on 01/26/18904 Levothyroxine Sodium (Levothyroxine Sodium) 50 Mcg Tablet, 50 MCG PO DAILY, (Reported) Entered as Reported by: CARLO WRIGHT on 01/26/18904 Mirtazapine (Mirtazapine) 30 Mg Tablet, 30 MG PO HS, (Reported) Entered as Reported by: CARLO WRIGHT on 01/26/18904 Ondansetron (Ondansetron Odt) 4 Mg Tab.rapdis, 4 MG SL Q4H PRN for NAUSEA/VOMITING Prescribed by: RANJAN SWAN on 02/02/23 173 Prednisone (Prednisone) 10 Mg Tab.ds.pk, 20 MG PO DAILY Prescribed by: CORIN SULLIVAN on 01/26/18 1121 Rosuvastatin Calcium (Rosuvastatin Calcium) 5 Mg Tablet, 5 MG PO DAILY, (Reported) Entered as Reported by: CARLO WRIGHT on 01/26/18904 Trazodone HCl (Trazodone HCl) 50 Mg Tablet, 50 MG PO HS, (Reported) Entered as Reported by: CARLO WRIGHT on 01/26/18904 Ziprasidone HCl (Ziprasidone HCl) 40 Mg Capsule, 40 MG PO BID, (Reported) Entered as Reported by: CARLO WRIGHT on 01/26/18904 [viscous lidocaine 2%] , 5 ML BU QIDACHS Prescribed by: YADY DOVER on 11/01/19 2274 Review of Systems Review of Systems Constitutional: see HPI EENTM: no symptoms reported Respiratory: no symptoms reported Cardiovascular: see HPI; No chest pain Gastrointestinal: see HPI Genitourinary: no symptoms reported Musculoskeletal: no symptoms reported Skin: see HPI Psychiatric/Neurological: See HPI Hematologic/Lymphatic: No Symptoms Reported Immunological/Allergic: no symptoms reported Past Vbmrpim-Mvwizr-Elwzao Hx Patient Social History Tobacco Use?: No Substance use?: No Alcohol Use?: No Seasonal Allergies Seasonal Allergies: No Past Medical History Surgeries: Yes Gallbladder, Hysterectomy Respiratory: Yes Emphysema Cardiac: No Neurological: Yes (narcolepsy) Dementia Genitourinary: No Gastrointestinal: Yes Irritable Bowel Musculoskeletal: Yes Chronic Back Pain Endocrine: Yes Hypothyroidsim HEENT: No Cancer: No Psychosocial: Yes ADD/ADHD, Anxiety, Bipolar, Depression Integumentary: No Family Medical History Hypertension Physical Exam Vital Signs Vital Signs - First Documented 02/02/23 14:56 Temp 36.3 Pulse 106 Resp 16 B/P (MAP) 168/94 (118) Pulse Ox 96 O2 Delivery Room Air Capillary Refill : Less Than 3 Seconds Height, Weight, BMI Height: 5'3.00" Weight: 115lbs. 0.0oz. [id number]; 28.00 BMI Method:Stated General Appearance: No Apparent Distress, WD/WN HEENT: PERRL/EOMI, Normal ENT Inspection Neck: Normal Inspection, Non Tender Respiratory: Lungs Clear, Normal Breath Sounds, No Accessory Muscle Use Cardiovascular: No Edema, No Murmur, Tachycardia (Regular) Gastrointestinal: Normal Bowel Sounds, Non Tender, Soft; No Distended Extremity: Other (Skin tear with surrounding bruising on the distal right upper arm. No significant pain in the right elbow with active or passive range of motion. No significant tenderness near the skin tear.) Neurologic/Psychiatric: Alert, No Motor/Sensory Deficits (No focal deficit), Normal Mood/Affect, Other (Confused historian at baseline due to dementia. Fine tremor, almost a shiver.) Skin: Normal Color, Warm/Dry Procedures/Interventions Date of ETT Placement: Jan 25, 2018 Progress/Results/Core Measures Suspected Sepsis SIRS Temperature: Pulse: 106 Respiratory Rate: 16 Laboratory Tests 02/02/23 15:19: White Blood Count 11.1H Blood Pressure 168 /94 Mean: 118 Laboratory Tests 02/02/23 15:19: Creatinine 1.05, Platelet Count 333, Total Bilirubin 0.6 Results/Orders Lab Results Laboratory Tests Test 02/02/23 15:19 02/02/23 16:30 Range/Units White Blood Count 11.1 H 4.3-11.0 10^3/uL Red Blood Count 4.60 3.80-5.11 10^6/uL Hemoglobin 14.0 11.5-16.0 g/dL Hematocrit 42 35-52 % Mean Corpuscular Volume 90 80-99 fL Mean Corpuscular Hemoglobin 30 25-34 pg Mean Corpuscular Hemoglobin Concent 34 32-36 g/dL Red Cell Distribution Width 13.7 10.0-14.5 % Platelet Count 333 130-400 10^3/uL Mean Platelet Volume 8.7 L 9.0-12.2 fL Immature Granulocyte % (Auto) 0 % Neutrophils (%) (Auto) 77 H 42-75 % Lymphocytes (%) (Auto) 17 12-44 % Monocytes (%) (Auto) 5 0-12 % Eosinophils (%) (Auto) 1 0-10 % Basophils (%) (Auto) 0 0-10 % Neutrophils # (Auto) 8.6 H 1.8-7.8 10^3/uL Lymphocytes # (Auto) 1.9 1.0-4.0 10^3/uL Monocytes # (Auto) 0.5 0.0-1.0 10^3/uL Eosinophils # (Auto) 0.1 0.0-0.3 10^3/uL Basophils # (Auto) 0.0 0.0-0.1 10^3/uL Immature Granulocyte # (Auto) 0.1 0.0-0.1 10^3/uL Sodium Level 134 L 135-145 MMOL/L Potassium Level 4.7 3.6-5.0 MMOL/L Chloride Level 97 L 98-107 MMOL/L Carbon Dioxide Level 23 21-32 MMOL/L Anion Gap 14 5-14 MMOL/L Blood Urea Nitrogen 13 7-18 MG/DL Creatinine 1.05 0.60-1.30 MG/DL Estimat Glomerular Filtration Rate 57 BUN/Creatinine Ratio 12 Glucose Level 117 H 70-105 MG/DL Calcium Level 11.1 H 8.5-10.1 MG/DL Corrected Calcium 8.5-10.1 MG/DL Magnesium Level 2.2 1.6-2.4 MG/DL Total Bilirubin 0.6 0.1-1.0 MG/DL Aspartate Amino Transf (AST/SGOT) 45 H 5-34 U/L Alanine Aminotransferase (ALT/SGPT) 47 0-55 U/L Alkaline Phosphatase 90 40-136 U/L Total Protein 7.7 6.4-8.2 GM/DL Albumin 4.8 H 3.2-4.5 GM/DL Lipase 25 8-78 U/L Influenza Type A (RT-PCR) Not Detected Not Detecte Influenza Type B (RT-PCR) Not Detected Not Detecte SARS-CoV-2 RNA (RT-PCR) Not Detected Not Detecte Urine Color YELLOW Urine Clarity CLEAR Urine pH 6.5 5-9 Urine Specific Ovid <=1.005 1.016-1.022 Urine Protein NEGATIVE NEGATIVE Urine Glucose (UA) NEGATIVE NEGATIVE Urine Ketones 1+ H NEGATIVE Urine Nitrite NEGATIVE NEGATIVE Urine Bilirubin NEGATIVE NEGATIVE Urine Urobilinogen 0.2 < = 1.0 MG/DL Urine Leukocyte Esterase NEGATIVE NEGATIVE Urine RBC (Auto) 2+ H NEGATIVE Urine RBC 25-50 H /HPF Urine WBC RARE /HPF Urine Squamous Epithelial Cells 0-2 /HPF Urine Crystals NONE /LPF Urine Bacteria TRACE /HPF Urine Casts NONE /LPF Urine Mucus NEGATIVE /LPF Urine Culture Indicated NO My Orders Orders - RANJAN REA MD Ekg Tracing (02/02/23 15:02) Monitor-Rhythm Ecg Trace Only (02/02/23 15:02) Cbc And Automated Diff (02/02/23 15:12) Comprehensive Metabolic Panel (02/02/23 15:12) Lipase (02/02/23 15:12) Magnesium (02/02/23 15:12) Ua Culture If Indicated (02/02/23 15:12) Covid 19 Inhouse Test (02/02/23 15:12) Influenza A And B By Pcr (02/02/23 15:12) Ct Head/Cervical Spine Wo (02/02/23 15:12) Chest 1 View Ap/Pa Only (02/02/23 15:12) Ondansetron Injection (Ondansetron Inj (02/02/23 15:15) Ns Iv 500 Ml (Ns Iv 500 Ml) (02/02/23 17:00) Dipht/Pertuss(Acell)/Tet Adult (Dipht/Pe (02/02/23 17:30) Medications Given in ED Current Medications Medications Dose Ordered Sig/Qiana Route Start Time Stop Time Status Last Admin Dose Admin Diphtheria/ Tetanus/Acell Pertussis 0.5 ml ONCE ONCE IM 02/02/23 17:30 02/02/23 17:31 DC 02/02/23 17:32 0.5 ML Vital Signs/I&O 02/02/23 02/02/23 14:56 17:36 Temp 36.3 Pulse 106 104 Resp 16 15 B/P (MAP) 168/94 (118) 177/92 Pulse Ox 96 96 O2 Delivery Room Air Room Air Capillary Refill : Less Than 3 Seconds Blood Pressure Mean: 118 Progress Note : Progress Note Patient was interviewed and examined. Patient's son and contributed to the history. There were no major abnormalities on her physical exam. She had the minor injury to her right upper arm. Tetanus booster was administered as she did not recall her last immunization and no tetanus immunizations were on file. Patient is a poor historian regarding her fall. It is uncertain if she had any significant head injury. CT of the head and cervical spine was obtained and unremarkable for acute injury as noted below in the radiologist's report. Chest x-ray was interpreted as unremarkable by the radiologist as noted in report below. Labs were obtained, reviewed, and interpreted in their entirety by me. CBC, CMP, magnesium, and lipase all demonstrated no clinically relevant abnormalities. Urinalysis was notable for 25-50 RBCs. Family reports she has been known to have hematuria in the past. believes that hematuria is actually due to vulvovaginal candidiasis. He reports she frequently has irritation in the perineum and vulvar regions which seems to clear with antifungal cream. Patient is generally very sore to the touch in the perineum. She does have some incontinence and wears adult briefs. I offered to examine the area which patient declined. However, she would like more aggressive treatment for probable yeast infection. Diflucan was prescribed for that purpose. I have recommended close follow-up and monitoring of this hematuria by her primary care provider. Influenza and COVID-19 swabs were negative. Ultimately, patient did not have any further vomiting and was otherwise stable. She was ultimately discharged home. See discharge instructions for further discussion. ECG Initial ECG Impression Date: Feb 02, 2023 Initial ECG Impression Time: 15:18 Initial ECG Rate: 101 Initial ECG Rhythm: S.Tach Comment Sinus tachycardia with no ST elevation or depression. Left axis deviation. No abnormal intervals. EKG : Comment Outside [facility] from [facility] reveals sinus tachycardia with heart rate of [address] elevation or depression. There is no significant difference in comparison with ECG in the ER. Diagnostic Imaging Diagonstic Imaging: Xray Plain Films/CT/US/NM/MRI: chest Comments NAME: SHANNAN BARRERA [facility] REC#: [id number] PT STATUS: REG ER : 1950 PHYSICIAN: RANJAN REA MD ADMIT DATE: 02/02/23/ER FS Signed Date of Exam:02/02/23 CHEST 1 VIEW AP/PA ONLY EXAMINATION: Chest, one view. HISTORY: Chills and tachycardia. COMPARISON: 01/26/2018. FINDINGS: The lungs are clear without edema or pneumonia. No pleural effusion or pneumothorax. Heart size is normal. IMPRESSION: 1. Clear lungs. Dictated by: Dictated on workstation # [id number] Dict: 02/02/23 1547 Trans: 02/02/23 1549 [id number] Interpreted by: DENA AYOUB MD Electronically signed by: DENA AYOUB MD 02/02/23 1549 Diagonstic Imaging: CT Plain Films/CT/US/NM/MRI: c-spine, head Comments NAME: SHANNAN BARRERA [facility] REC#: [id number] PT STATUS: REG ER : 1950 PHYSICIAN: RANJAN REA MD ADMIT DATE: 02/02/23/ER FS Signed Date of Exam:02/02/23 CT HEAD/CERVICAL SPINE WO PROCEDURE: CT head and CT cervical spine without contrast. TECHNIQUE: Multiple contiguous axial images were obtained through the brain and cervical spine without the use of intravenous contrast. Sagittal and coronal reformations through the cervical spine were then performed. Auto Exposure Controls were utilized during the CT exam to meet ALARA standards for radiation dose reduction. INDICATION: Fall with head and neck injury. Comparison is made to study of 11/01/2019. CT HEAD: FINDINGS: Ventricles and sulci are prominent; however, no hemorrhage is identified. There is no abnormal mass effect or shift of midline structures. Calvarium is intact, and the visualized paranasal sinuses are clear. IMPRESSION: No evidence of acute intracranial abnormality. CT CERVICAL SPINE: FINDINGS: There is reversal of the cervical lordosis with worsening of advanced disc space narrowing at the C4-C5, C5-C6, and C6-C7 levels. Grade 1 anterolisthesis of C4 on C5 is stable. There is no evidence of acute fracture or subluxation. IMPRESSION: Worsening cervical spondylosis without acute cervical spinal abnormality identified. Dictated by: Dictated on workstation # [id number] Dict: 02/02/23 1554 Trans: 02/02/23 1714 [id number] Interpreted by: ASHOK LOPEZ MD Electronically signed by: ASHOK LOPEZ MD 02/02/23 1714 Departure Impression Primary Impression: Fall on same level Qualified Codes: W18.30XA - Fall on same level, unspecified, initial encounter Additional Impressions: Skin tear of right upper extremity Tremor Nausea & vomiting Qualified Codes: R11.2 - Nausea with vomiting, unspecified Vulvovaginitis Microscopic hematuria Disposition: 01 HOME, SELF-CARE Condition: Improved Departure-Patient Inst. Decision time for Depature: 17:25 Referrals: DENA MADERA MD (PCP/Family) Primary Care Physician Patient Instructions: Nausea and Vomiting, Adult ED Add. Discharge Instructions: Start with a noncarbonated clear liquid diet and gradually advance your diet with small quantities of bland food as tolerated. You may use the Zofran as prescribed if needed for further nausea or vomiting. For possible vulvovaginal candidiasis, you may use the Diflucan tablets prescribed. Take 1 now and then repeat in 3 days. There was some blood in your urine. You should have your primary care doctor check a urine specimen again after your vulvovaginitis resolves to ensure that blood clears. Return to care if you have worsening symptoms despite following these instructions. All discharge instructions reviewed with patient and/or family. Voiced unders tanding. Scripts Fluconazole (Diflucan) 150 Mg Tablet 150 MG PO UD, #2 TAB Take 1 tablet now and then repeat in 3 days. Prov: RANJAN REA MD 02/02/23 Ondansetron (Ondansetron Odt) 4 Mg Tab.rapdis 4 MG SL Q4H PRN for NAUSEA/VOMITING, #10 TAB Prov: RANJAN REA MD 02/02/23 Copy Copies To 1: [facility] [place] RANJAN REA MD Feb 02, 2023 16:31
[2023-02-02 16:33] LABS: BILIRUBIN,URINE NEGATIVE (NEGATIVE); CLARITY,URINE CLEAR; COLOR,URINE YELLOW; GLUCOSE, URINE (UA) NEGATIVE (NEGATIVE); KETONES,URINE 1+ (NEGATIVE); LEUKOCYTE ESTERASE ,URINE NEGATIVE (NEGATIVE); NITRITE,URINE NEGATIVE (NEGATIVE); PH,URINE 6.5 (5-9); PROTEIN,URINE NEGATIVE (NEGATIVE)
[2023-02-02 16:43] LABS: BACTERIA,URINE TRACE /HPF; RBC,URINE 25-50 /HPF; SQUAMOUS EPITHELIAL CELL,UR 0-2 /HPF; WBC,URINE RARE /HPF
[2023-02-02] MEDS ORDERED: NS IV 500 ML 500 ML IV ONE (17:00)
[2023-02-02] MEDS ORDERED: Tetanus/Diphtheria/Pertussis (Acell) ADULT Vaccine 0.5 ML IM ONE (17:30)
[2023-02-02] MEDS ORDERED: FLUC150T PO (17:32)
[2023-02-02] MEDS ORDERED: ONDA4TAB11 SL (17:32)
[2023-02-02 17:36] VITALS: BP 177/92
== END 2023-02-02 17:36 | disposition home or self-care (01) ==
LOC: EDUNIT# 14:56 → ER FS 14:59
DX: S41.112A Laceration without foreign body of left upper arm, initial encounter (principal); R11.2 Nausea with vomiting, unspecified; R25.1 Tremor, unspecified; N76.0 Acute vaginitis; R31.29 Other microscopic hematuria; Z91.040 Latex allergy status; Z20.822 Contact with and (suspected) exposure to COVID-19; Z23 Encounter for immunization; W22.8XXA Striking against or struck by other objects, initial encounter; W18.30XA Fall on same level, unspecified, initial encounter
CPT/HCPCS: 36415; 70450; 71045; 72125; 80053; 81000; 83690; 83735; 85025; 87636; 90715; 93005; 93041